=== PATIENT | male | born 1955 | race Caucasian/White ===

== ENCOUNTER 2018-04-17 07:33 | Inpatient (IN) | payer MEDICARE, MEDICAID ==
[2018-04-17] MEDS ORDERED: Fentanyl 100 MCG/2 ML VIAL ONE ×3 (07:57→13:50)
[2018-04-17] MEDS ORDERED: Sodium Chloride 0.9% 100 ML ONE (07:57)
[2018-04-17] MEDS ORDERED: cefOXitin 2 GM VIAL ONE ×2 (07:57→10:03)
[2018-04-17] MEDS ORDERED: Ketorolac Tromethamine 30 MG/ML VIAL ONE (07:57)
[2018-04-17] MEDS ORDERED: Midazolam HCl 2 mg/2 ml Vial ONE ×2 (07:57→09:30)
[2018-04-17] MEDS ORDERED: Dexamethasone 4 mg/ml Vial ONE ×2 (07:57→09:22)
[2018-04-17 08:25] LABS: #Eosinphils 0.1 thou/uL (0.0-0.7); #Lymphocytes 1.7 thou/uL (1.20-3.40); #Monocytes 0.6 thou/uL (0.11-0.59); #Neutrophils 5.1 thou/uL (1.40-6.50); %Basophils 0.6 % (0.0-1.0); %Lymphocytes 22.1 % (21.0-51.0); %Monocytes 8.1 % (0.0-10.0); %Neutrophils 67.2 % (42.0-75.0); Hemoglobin 14.6 g/dL (14.0-18.0); Mean Corpuscular HGB CONC 33.2 g/dL (32.0-36.0); Mean Corpuscular Hemoglobin 31.7 pg (27.0-31.0); Mean Corpuscular Volume 95.4 fL (78.0-98.0); Mean Platelet Volume 7.4 fL (7.4-10.4); Platelet Count 209 thou/uL (130-400); RBC Distribution Width 12.7 % (11.5-14.5); White Blood Cell (WBC) Count 7.6 thou/uL (4.8-10.8)
[2018-04-17 08:43] LABS: Anion Gap 9 mmol/L (10-20); BUN (Urea Nitrogen) 18 mg/dL (8.4-25.7); Calc. Creatinine Clearance 81 mL/min (70-130); Calcium 8.9 mg/dL (7.8-10.44); Carbon Dioxide 30 mmol/L (22-29); Chloride 110 mmol/L (98-107); Estimated GFR-MDRD 86; Glucose 87 mg/dL (70-105); Sodium 145 mmol/L (136-145)
[2018-04-17] MEDS ORDERED: Lidocaine 2% w/Epinephrine 1:200K 20 ML VIAL ONE (09:22)
[2018-04-17] MEDS ORDERED: Bupivacaine/Epinephrine 0.25% 30 ML VIAL ONE (09:22)
[2018-04-17] MEDS ORDERED: ePHEDrine/0.9% NaCl/PF SYRINGE 50 mg/10 ml ONE (13:39)
[2018-04-17] MEDS ORDERED: Ondansetron HCl/PF 4 MG/2 ML Vial ONE (13:39)
[2018-04-17] MEDS ORDERED: Dexamethasone 20 MG/5 ML VIAL ONE (13:39)
[2018-04-17] MEDS ORDERED: PROPOFOL 200 MG/20 ML VIAL ONE (13:39)
[2018-04-17] MEDS ORDERED: Glycopyrrolate 0.2 MG/ML 5 ML SYRINGE ONE (13:39)
[2018-04-17] MEDS ORDERED: Lidocaine 1% PF 5 ML VIAL ONE (13:39)
[2018-04-17] MEDS ORDERED: Ondansetron HCl/PF 4 MG/2 ML Vial IVP PRN (16:27)
[2018-04-17] MEDS ORDERED: hydrALAZINE 20 MG/ML VIAL SLOW IVP PRN (16:27)
[2018-04-17] MEDS ORDERED: Promethazine HCl 25 MG/ML VIAL IM PRN (16:27)
[2018-04-17] MEDS: Acetaminophen 1,000 MG in Premix Bag 1 BAG IVPB SCH (17:51)
[2018-04-17] MEDS: D5 1/2 NS w/20 mEq KCL 1,000 ML IV SCH (17:51)
[2018-04-17] MEDS: Ketorolac Tromethamine 30 MG/ML VIAL IVP SCH (17:52)
[2018-04-17] MEDS: Enoxaparin Sodium 40 MG/0.4 ML SYRINGE SC SCH (20:36)
[2018-04-17] MEDS: Famotidine/PF 20 mg/2ml Vial SLOW IVP SCH (20:37)
[2018-04-17] MEDS: Famotidine 20 MG TAB PO SCH (20:37)
[2018-04-18] MEDS: Acetaminophen 1,000 MG in Premix Bag 1 BAG IVPB SCH ×4 (00:06→18:29)
[2018-04-18] MEDS: cefOXitin 2 GM in Sodium Chloride 0.9% 100 ML IVPB SCH ×3 (00:06→18:29)
[2018-04-18] MEDS: Ketorolac Tromethamine 30 MG/ML VIAL IVP SCH ×4 (00:07→17:13)
[2018-04-18] MEDS: D5 1/2 NS w/20 mEq KCL 1,000 ML IV SCH ×3 (00:58→21:09)
[2018-04-18 04:59] LABS: Anion Gap 13 mmol/L (10-20); BUN (Urea Nitrogen) 15 mg/dL (8.4-25.7); Calc. Creatinine Clearance 75 mL/min (70-130); Calcium 8.1 mg/dL (7.8-10.44); Carbon Dioxide 16 mmol/L (22-29); Chloride 113 mmol/L (98-107); Estimated GFR-MDRD 79; Glucose 149 mg/dL (70-105); Potassium 4.5 mmol/L (3.5-5.1); Sodium 137 mmol/L (136-145)
[2018-04-18 05:39] LABS: Band 40 % (5-11); Hemoglobin 15.9 g/dL (14.0-18.0); Lymphocytes 16 % (21-51); MDiff Complete? YES; Mean Corpuscular HGB CONC 34.6 g/dL (32.0-36.0); Mean Corpuscular Hemoglobin 32.7 pg (27.0-31.0); Mean Corpuscular Volume 94.7 fL (78.0-98.0); Mean Platelet Volume 7.7 fL (7.4-10.4); Monocytes 28 % (0-10); Myelocyte 8 % (0-0); Neutrophil 4 % (42-75); PLT Morphology Comment Appears Adequate; Platelet Count 182 thou/uL (130-400); RBC Distribution Width 12.8 % (11.5-14.5); Reactive Lymphocytes 4 % (0-10); Red Blood Cell (RBC) Count 4.86 mill/uL (4.70-6.10); White Blood Cell (WBC) Count 3.6 thou/uL (4.8-10.8)
--- NOTE | 2018-04-18 08:20 | OP ---
DATE OF PROCEDURE: 04/17/2018 PREOPERATIVE DIAGNOSES: Intractable constipation, suspected related to functional issues associated with his profound mental retardation. POSTOPERATIVE DIAGNOSES: Intractable constipation, suspected related to functional issues associated with his profound mental retardation. OPERATION PERFORMED: Laparoscopic sigmoid colectomy with end colostomy. SURGEON: Dr. Robert Nunez ANESTHESIA: General endotracheal. INDICATIONS: The patient is a 62-year-old white male. 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 He is nonverbal. He is unable to ambulate. He has had repeated p rogressive problems with severe constipation. He is therefore taken to the operating room at [facility] for a sigmoid colectomy with end colostomy in hopes of resolving these issues. OPERATIVE PROCEDURE IN DETAIL: Informed consent was obtained. The patient was taken to the operatin g room where general endotracheal anesthesia obtained with the patient in supine position. Abdomen w as prepped with ChloraPrep and draped in sterile fashion. Local anesthetic was infiltrated and a 5 m m supraumbilical incision was created through which a Veress needle was passed in peritoneal cavity a nd pneumoperitoneum established using carbon dioxide up to a pressure of 15 mmHg. A 5 mm trocar pass ed through the same incision. Laparoscopic camera was passed this port. Under direct vision, 2 justine tional right-sided ports were placed including a 12 mm right lower quadrant port and a 5 mm right mid abdominal port. Finally, a 5 mm port was placed in the left abdomen at the preselected site for his colostomy. Attention was turned to the abdominal contents. The patient was noted to have extensive dilated silvio l. I was able to identify the rectum as it descended into the pelvis. Just proximal to this, the si gmoid colon became extraordinarily dilated. There were some abnormal adhesions between the sigmoid c olon and the right retroperitoneum. Because of the extensive dilatation, the anatomy was initially d ifficult to perceive. As I began to mobilize, the anatomy became clearer. I initially began by mobilizing the sigmoid colon from the lateral peritoneal wall. The white line o f Toldt was incised and the left colon was mobilized along this line. I then turned my attention inf eriorly as I continued to mobilize the redundant sigmoid colon was extended towards the rectum. I cl eared the adhesions on the right lateral aspect of the sigmoid colon. I eventually selected a segmen t of distal sigmoid colon, created a mesenteric window, and divided the distal sigmoid colon with 2 f ires of the Comobabi stapler. The mesentery was taken down in an ascending fashion using the LigaSure device. As I reached the distal to mid left colon, I decided that was enough mobilization. I then created a colostomy opening in the left abdomen, creating cruciate incisions in the anterior and post erior fascia and was able to withdraw the colon through this opening. Because of the diseased chroni archie distended colon there were a couple of small colon perforations that had occurred during the mo bilization. These were quickly repaired to prevent ongoing leakage. I then secured the colon to the fascia with 4 interrupted sutures of 3-0 silk. I also closed the fascia somewhat inferiorly with a single interrupted suture of #1 PDS to minimize chances of a hernia. The abdomen was explored laparoscopically. It was ensured that there was no ongoing bleeding. The a maritza was irrigated and all irrigant was aspirated. Staple line was inspected and noted to be intact. The fascial defect at the 12 mm port was closed with 0 Vicryl suture using a GraNee needle. All por ts and instruments removed under direct vision. Pneumoperitoneum was carefully evacuated. Quarter p ercent Marcaine with epinephrine was infiltrated at each port site. Skin edges approximated with 4-0 Monocryl subcuticular suture. Dermabond was placed externally. Attention was turned to the colostomy. This was matured in the usual fashion using 4 interrupted juan manuel rsion sutures of 3-0 Vicryl. The remaining colon was secured to the skin using full thickness interr upted bites of 3-0 Vicryl to obtain a good approximation. A colostomy appliance was then applied. T here were no complications. The patient tolerated the procedure well and was taken to recovery room in stable condition.
[2018-04-18] MEDS ORDERED: Polyethylene Glycol 3350 17 GM Packet PO PRN (09:00)
[2018-04-18] MEDS: Famotidine/PF 20 mg/2ml Vial SLOW IVP SCH ×2 (10:05→21:11)
[2018-04-18] MEDS: Famotidine 20 MG TAB PO SCH ×2 (10:09→21:12)
[2018-04-18] MEDS ORDERED: HYDROcodone/Acetaminophen 7.5/325 mg Tablet PO PRN ×2 (13:00)
[2018-04-18] MEDS ORDERED: Lactated Ringer's 1,000 ML IV SCH (18:00)
[2018-04-18] MEDS: Enoxaparin Sodium 40 MG/0.4 ML SYRINGE SC SCH (21:12)
[2018-04-19] MEDS: Ketorolac Tromethamine 30 MG/ML VIAL IVP SCH ×3 (00:21→15:58)
[2018-04-19] MEDS: Acetaminophen 1,000 MG in Premix Bag 1 BAG IVPB SCH ×5 (00:21→23:26)
[2018-04-19] MEDS: cefOXitin 2 GM in Sodium Chloride 0.9% 100 ML IVPB SCH ×2 (02:03→10:38)
[2018-04-19 04:49] LABS: Anion Gap 10 mmol/L (10-20); BUN (Urea Nitrogen) 15 mg/dL (8.4-25.7); Calc. Creatinine Clearance 61 mL/min (70-130); Calcium 7.8 mg/dL (7.8-10.44); Carbon Dioxide 18 mmol/L (22-29); Chloride 112 mmol/L (98-107); Estimated GFR-MDRD 62; Glucose 95 mg/dL (70-105); Sodium 135 mmol/L (136-145)
[2018-04-19] MEDS: D5 1/2 NS w/20 mEq KCL 1,000 ML IV SCH ×3 (05:45→15:58)
[2018-04-19 07:31] LABS: Band 48 % (5-11); Hemoglobin 13.5 g/dL (14.0-18.0); Lymphocytes 15 % (21-51); MDiff Complete? YES; Mean Corpuscular Hemoglobin 32.3 pg (27.0-31.0); Metamyelocyte 5 % (0-0); Monocytes 2 % (0-10); Myelocyte 2 % (0-0); Neutrophil 26 % (42-75); Nucleated RBC 1 % (0); PLT Morphology Comment Appears Decreased; Platelet Count 111 thou/uL (130-400); RBC Distribution Width 12.9 % (11.5-14.5); Reactive Lymphocytes 2 % (0-10); Red Blood Cell (RBC) Count 4.18 mill/uL (4.70-6.10); Reflex for Review?? YES; Toxic Granulation SLIGHT; Vacuoles MODERATE; White Blood Cell (WBC) Count 2.1 thou/uL (4.8-10.8)
[2018-04-19] MEDS: Dextrose 5 %-0.45 % NaCl 1,000 ML IV SCH ×3 (10:39→23:25)
[2018-04-19] MEDS: Famotidine/PF 20 mg/2ml Vial SLOW IVP SCH ×2 (10:39→22:01)
[2018-04-19] MEDS ORDERED: Piperacillin/Tazobactam 3.375 GM in Sodium Chloride 0.9% 100 ML IVPB SCH (11:00)
[2018-04-19] MEDS ORDERED: Lactated Ringer's 1,000 ML IV SCH (11:00)
--- NOTE | 2018-04-19 11:02 | CT ---
CT OF THE ABDOMEN AND PELVIS WITH IV CONTRAST AND RECTAL CONTRAST: Date: 04-19-18 Provided Clinical History: Tachycardia and dyspnea. FINDINGS: The patient was unable to tolerate oral contrast. No comparisons. Small bilateral pleural effusions and bibasilar pleural parenchymal opacity likely reflecting passive atelectasis demonstrated. The liver, spleen, pancreas, kidneys and adrenal glands demonstrate no acute finding. Foci of increas ed density involving the left kidney probably reflect renal calculi. There is no hydronephrosis. Post-operative changes of colectomy with end colostomy noted. A staple line is seen involving the reg ion of the rectosigmoid junction. There are foci of extraluminal gas present about the rectosigmoid s taple line. There is extraluminal gas present within the soft tissues surrounding the left mid abdomi nal colostomy. There is mild noncircumscribed free fluid present within the abdomen primarily on the left midabdomen anteriorly. There is no definite CT evidence for abscess. There is no evidence for janusz wel obstruction. Soft tissue density is present in the right inguinal region, presumably reflecting inguinal testicle. Changes of bilateral chronic hip dislocation demonstrated. The osseous structures demonstrate no con cerning lytic or blastic lesions. IMPRESSION: 1. Limited evaluation as the patient was unable to tolerate oral contrast material. Foci of extralumi nal gas are seen about the rectal staple line, which could be evidence for leak or post-surgical in n ature. Free intraperitoneal fluid is present without CT evidence for abscess formation. 2. Findings suggesting right inguinal testicle. 3. Bilateral pleural effusions and bibasilar parenchymal opacity may reflect atelectasis. POS: [facility]
[2018-04-19] MEDS ORDERED: Iopamidol 370 76% 100 ML VIAL ONE (11:26)
[2018-04-19] MEDS ORDERED: Ketorolac Tromethamine 30 MG/ML VIAL ONE (12:27)
[2018-04-19] MEDS ORDERED: PHENYLEPHRINE-NS 100 MCG/ML 10 ML SYRINGE ONE ×2 (12:42→13:53)
[2018-04-19] MEDS ORDERED: PROPOFOL 200 MG/20 ML VIAL ONE (12:42)
[2018-04-19] MEDS ORDERED: Norepinephrine 4 MG/4 ML VIAL ONE (12:42)
[2018-04-19] MEDS ORDERED: Lidocaine 1% PF 5 ML VIAL ONE (12:42)
[2018-04-19] MEDS ORDERED: Calcium Chloride 1 GM/10 ML Abboject SYRINGE ONE (12:42)
[2018-04-19] MEDS ORDERED: ePHEDrine/0.9% NaCl/PF SYRINGE 50 mg/10 ml ONE (12:42)
[2018-04-19] MEDS ORDERED: Succinylcholine Chloride 20 MG/ML 10 ml SYRINGE FS ONE (12:42)
[2018-04-19] MEDS ORDERED: Bupivacaine/Epinephrine 0.25% 30 ML VIAL ONE (13:04)
[2018-04-19] MEDS ORDERED: Fentanyl 100 MCG/2 ML VIAL ONE ×2 (13:19)
[2018-04-19] MEDS ORDERED: Midazolam HCl 2 mg/2 ml Vial ONE (13:19)
[2018-04-19] MEDS ORDERED: EPINEPHrine 1 MG/ML AMP ONE (13:51)
[2018-04-19] MEDS ORDERED: Sodium Chloride 0.9% 20 ML ONE (13:55)
[2018-04-19] MEDS ORDERED: Phenylephrine HCL 10 MG/ML VIAL ONE (14:01)
[2018-04-19] MEDS ORDERED: Albumin 25% 100 ML ONE (14:01)
[2018-04-19] MEDS ORDERED: Norepinephrine 8 MG/250 ML BAG IVPB PRN (15:20)
[2018-04-19] MEDS ORDERED: Sodium Chloride 0.9% 10 ML ONE (15:21)
[2018-04-19 15:49] LABS: Anion Gap 13 mmol/L (10-20); BUN (Urea Nitrogen) 14 mg/dL (8.4-25.7); Band 30 % (5-11); Calc. Creatinine Clearance 79 mL/min (70-130); Calcium 8.7 mg/dL (7.8-10.44); Carbon Dioxide 16 mmol/L (22-29); Chloride 113 mmol/L (98-107); Crenated RBC SLIGHT = 1-5 cells (100X) (None Seen); Estimated GFR-MDRD 83; Hemoglobin 11.6 g/dL (14.0-18.0); Lymphocytes 28 % (21-51); MDiff Complete? YES; Mean Corpuscular HGB CONC 32.8 g/dL (32.0-36.0); Mean Corpuscular Hemoglobin 32.2 pg (27.0-31.0); Mean Corpuscular Volume 98.2 fL (78.0-98.0); Mean Platelet Volume 7.8 fL (7.4-10.4); Metamyelocyte 4 % (0-0); Monocytes 10 % (0-10); Myelocyte 2 % (0-0); Neutrophil 24 % (42-75); PLT Morphology Comment Appears Decreased; Platelet Count 76 thou/uL (130-400); Potassium 4.3 mmol/L (3.5-5.1); RBC Distribution Width 13.2 % (11.5-14.5); Reactive Lymphocytes 2 % (0-10); Red Blood Cell (RBC) Count 3.61 mill/uL (4.70-6.10); Sodium 138 mmol/L (136-145); White Blood Cell (WBC) Count 1.7 thou/uL (4.8-10.8)
[2018-04-19 15:53] LABS: Glucose 49 mg/dL (70-105)
[2018-04-19] MEDS: Famotidine 20 MG TAB PO SCH (15:58)
--- NOTE | 2018-04-19 16:00 | RAD ---
CHEST ONE VIEW 04/19/18 HISTORY: Intubated. Chest pain. FINDINGS: The cardiac silhouette is magnified and partially obscured by patchy bibasilar infiltrates, right wor se than left. Pulmonary vasculature is engorged and accentuated by shallow inspiration. The patient i s rotated rightward, accentuating right sided mediastinum. Tip of an endotracheal catheter lies at th e level of the rosana. Nasogastric tube is coiled over the stomach. Tip of a left subclavian central venous catheter overlies the cavoatrial junction. No evidence of pneumothorax on this portable supine exam. IMPRESSION: 1. Pulmonary edema. 2. Endotracheal catheter tip at the level of the rosana. Please consider pulling the catheter ba ck approximately 3 cm for better positioning. 3. Other lines and tubes as detailed above. POS: [facility]
[2018-04-19] MEDS ORDERED: Dextrose 50% Abboject 50 ML SYRINGE ONE (16:16)
[2018-04-19 16:28] LABS: Actual Bicarbonate (HCO3a) 16.2 mEq/L (22-28); Base Excess (BEa) -9.6 mEq/L (-2.0 to +3.0); CO2 Tension 35.3 mmHg (35.0-45.0); Carboxyhemoglobin (COHb) 1.6 gm% (0.0-3.0); Hemoglobin (Hb) 13.2 g/dL (14.0-18.0); O2 Tension (PaO2) 77.3 mmHg (> 80.0); pH, Arterial 7.28 (7.35-7.45)
[2018-04-19 16:30] LABS: ALV-art Gradient 161.775 (0-20); Calcium, Ionized 1.3 mmol/L (1.12-1.30); Potassium - ABG Lab 4.2 mmol/L (3.70-5.30); Puncture Site LR
[2018-04-19] MEDS: Piperacillin/Tazobactam 3.375 GM in Sodium Chloride 0.9% 100 ML IVPB SCH ×2 (18:01→23:51)
[2018-04-19] MEDS: Enoxaparin Sodium 40 MG/0.4 ML SYRINGE SC SCH (22:00)
--- NOTE | 2018-04-20 00:35 | OP ---
DATE OF PROCEDURE: 04/19/2018 PREOPERATIVE DIAGNOSES: Abdominal pain, possible intra-abdominal sepsis. POSTOPERATIVE DIAGNOSIS: Early peritonitis without definite perforation. OPERATION PERFORMED: Left subclavian central line placement, laparoscopic abdominal washout and drai n placement. SURGEON: Robert Nunez M.D. ANESTHESIA: General endotracheal. INDICATIONS: Patient is a 62-year-old white male. He had a history of chronic constipation for whic h I had recommended a colectomy with colostomy for creation. This was performed on 04/17 (2 days ago ). Although the surgery was difficult secondary to extensive chronic bowel distention, the operation was performed safely without complication. The patient, secondary to his limited mental and physica l abilities, is unable to participate with standard postoperative activities, nor is he able to commu nicate regarding any perceived pain. He had become tachycardic and hypotensive in spite of increased IV fluids. He also had a significant bandemia. CT scan obtained today was without definite evidenc e of perforation or abscess formation. I recommended laparoscopic evaluation. DESCRIPTION OF OPERATION: Informed consent was obtained from his guardian. He was taken to the oper ating room where general endotracheal anesthesia was obtained with the patient in supine position. A ttention was turned first to central line placement. Left chest was prepped with ChloraPrep and drap ed in sterile fashion. Local anesthetic was infiltrated and a large gauge needle was advanced under the clavicle in the subclavian vein. Guidewire was passed through the needle, skin was incised, trac t was dilated, and 7 Gambian triple-lumen catheter was advanced over the wire uneventfully. Each of t he 3 lumens aspirated blood freely and was flushed with heparinized saline. Catheter was secured at skin exit site with 3-0 silk suture. Sterile occlusive dressing and Biopatch were placed. Attention was turned to the abdomen. His colostomy appliance was removed and the colostomy was cover ed with an occlusive dressing. The abdomen was prepped with ChloraPrep and draped in sterile fashion . The upper 5 mm port site on the right abdomen was reopened. Veress needle was passed through this and pneumoperitoneum established using carbon dioxide up to a pressure of 15 mmHg. A 5-mm trocar po rt was passed through the same incision. Under direct vision, I placed 5-mm ports in to the other 2 port sites as well. There were some inflammatory adhesions intra-abdominal. There was some evidence of some old thin blo od, but no significant clot. All the fluid that I could see was aspirated and submitted for culture. On the left hand side of the abdomen near the colostomy, there was inflammatory debris on both the abdominal wall and on the underlying structures typical of an abscess cavity, but there really was no t abscess like purulent material within this. This was all aspirated. There was no bowel on the souleymane e of the abdomen. The patient's cecum was quite distended and this made it difficult to examine down into the pelvis. I could not definitely examine the staple line from the transected rectosigmoid co bonnie. The colon and small bowel was all far too distended, to really be able to trace the bowel throu ghout. At no time did I see any bilious material, some inflammatory exudate. I then extensively irrigated t he abdominal cavity with 3 liters of saline. All of this was aspirated. A 19-Gambian fluted drain wa s passed into the abdominal cavity and brought out through the inferior port site on the right. It w as passed down into the pelvis and over into the left abdomen. It was secured at the exit site with 3-0 nylon suture. Of note, there was never any air leak at the colostomy site. This appeared to have sealed completely . All ports and instruments were removed under direct vision. Pneumoperitoneum was carefully evacuated . Additional local anesthetic was infiltrated in each port site. Skin edge was approximated with 4- 0 Monocryl subcuticular suture. Dermabond was placed externally over the 2 port sites were closed. The occlusive dressing was applied over the drain exit site. There were no complications. Patient t olerated the procedure well. It was decided to take him to the intensive care unit on a ventilator t o ensure appropriate stabilization.
--- NOTE | 2018-04-20 02:13 | CON ---
DATE OF CONSULTATION: 04/19/2018 HISTORY OF PRESENT ILLNESS: This a 62[facility] who was transferred here for constipation, unresponsive to usual treatments. He required a colostomy. As per Dr. Nunez, the surgeon, this was performed on 04/17/2018. Over the course of several days, he has had ongoing issues with tachycardia, fever. Dr. Nunez felt he was concerned about postop infection and a repeat lab was done. He found some evidence of perito nitis, but no leak, no anastomotic dehiscence. He is presently intubated on the vent. His chest x-ray shows bilateral pulmonary infiltrates, right greater than left. MEDICATIONS: Presently includes Levophed, Zosyn. His medicine from home includes simethicone, Crest or, omeprazole 20, vitamin D. ALLERGIES: SULFA. PAST MEDICAL HISTORY: Mental retardation, severe contraction, body habitus, markedly restricte d; upper extremity, contracted; lower extremity, contracted; kyphoscoliosis, extensive. PAST SURGICAL HISTORY: Otherwise included appears to be a [employer] shunt, colonoscopy. REVIEW OF SYSTEMS: Unobtainable. PHYSICAL EXAMINATION: VITAL SIGNS: Pulse 84, blood pressure 93/82 on Levophed. Sats 90%, respirations 20. GENERAL: He is obviously unable to communicate. Body habitus is noted. CHEST: Extensive rhonchi and crackles. CARDIAC: Normal S1-S2. No gallops. ABDOMEN: Distended, soft. LABORATORY DATA: Shows a white count of 1.7, H&H are 11 and 35, platelet count of 76. He has got 24 neutrophils, 30 bands. Electrolytes are normal. Glucose 49. Calcium is 8.7. IMPRESSION AND PLAN: 1. Status post lap for nonfunctional bowel. 2. Peritonitis. 3. Severe mental retardation. 4. Thrombocytopenia. Portion is probably septic. I started him on Zosyn, Levophed, cortisol level being ordered. He is n ot weanable at this time. Remains hypotensive. Consideration for adding meropenem will be made. Depending on the cortisol level, may consider adding steroids. 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 Nunez has spoken to them at length. This is a 45-minute critical care time.
[2018-04-20 05:54] LABS: Anion Gap 11 mmol/L (10-20); BUN (Urea Nitrogen) 12 mg/dL (8.4-25.7); Calc. Creatinine Clearance 88 mL/min (70-130); Calcium 8.2 mg/dL (7.8-10.44); Carbon Dioxide 17 mmol/L (22-29); Chloride 112 mmol/L (98-107); Estimated GFR-MDRD Greater than 90; Glucose 97 mg/dL (70-105); Magnesium 1.4 mg/dL (1.6-2.6); Potassium 3.5 mmol/L (3.5-5.1); Sodium 136 mmol/L (136-145)
[2018-04-20 05:57] LABS: Phosphorus Less than 1.0 mg/dL (2.3-4.7)
[2018-04-20 06:02] LABS: Band 29 % (5-11); Eosinophils 3 % (0-10); Hemoglobin 11.4 g/dL (14.0-18.0); Lymphocytes 19 % (21-51); MDiff Complete? YES; Mean Corpuscular HGB CONC 33.4 g/dL (32.0-36.0); Mean Corpuscular Hemoglobin 32.5 pg (27.0-31.0); Mean Corpuscular Volume 97.2 fL (78.0-98.0); Mean Platelet Volume 7.9 fL (7.4-10.4); Metamyelocyte 1 % (0-0); Monocytes 11 % (0-10); Neutrophil 37 % (42-75); PLT Morphology Comment Appears Decreased; Platelet Count 64 thou/uL (130-400); RBC Distribution Width 13.2 % (11.5-14.5); White Blood Cell (WBC) Count 2.4 thou/uL (4.8-10.8)
[2018-04-20] MEDS: Piperacillin/Tazobactam 3.375 GM in Sodium Chloride 0.9% 100 ML IVPB SCH ×3 (06:03→17:15)
[2018-04-20] MEDS: Acetaminophen 1,000 MG in Premix Bag 1 BAG IVPB SCH ×3 (06:03→17:14)
[2018-04-20] MEDS: Dextrose 5 %-0.45 % NaCl 1,000 ML IV SCH ×3 (06:38→21:43)
[2018-04-20 07:41] LABS: Actual Bicarbonate (HCO3a) 16.7 mEq/L (22-28); O2 Tension (PaO2) 118.7 mmHg (> 80.0); pH, Arterial 7.41 (7.35-7.45)
[2018-04-20 07:42] LABS: Base Excess (BEa) -6.5 mEq/L (-2.0 to +3.0); Calcium, Ionized 1.2 mmol/L (1.12-1.30); Carboxyhemoglobin (COHb) 1.2 gm% (0.0-3.0); Hemoglobin (Hb) 11.9 g/dL (14.0-18.0); Potassium - ABG Lab 3.5 mmol/L (3.70-5.30); Puncture Site RRA
[2018-04-20] MEDS: Famotidine/PF 20 mg/2ml Vial SLOW IVP SCH ×2 (08:15→21:43)
--- NOTE | 2018-04-20 08:37 | PRG ---
DATE OF SERVICE: 04/20/2018 SUBJECTIVE: Intubate in the vent, no sedation. Appears to be in no distress. OBJECTIVE: VITAL SIGNS: To my surprise, blood pressure is 107/60, sats are 99%-100%, respiration rate 18. GENERAL: Eyes are open. Severely deformed and contracted gentleman. CHEST: Chest reveals decreased breath sounds, anterior rhonchi. CARDIAC: Normal S1, S2. No gallops. ABDOMEN: Soft without any masses. LABORATORY DATA: White count 2000. H&H is 11 and 33, platelet count is 64,000. PO2 is 118, pCO2 __ ___. X-RAY FINDINGS: X-ray shows infiltrates, it is unclear which is chronic and which is new. IMPRESSION: Respiratory failure, status post lap peritonitis. PLAN: Continue Zosyn, continue neb treatments and supportive care. Continue Levophed. He is to start TPN as per Surgery today. 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 His cortisol level was 13 whil e he was on Levophed. One-half hour critical care time.
--- NOTE | 2018-04-20 09:48 | RAD ---
CHEST 1 VIEW: Date: 04/20/18 HISTORY: Central line placement. COMPARISON: Radiograph prior day. FINDINGS: Exam is severely limited due to rightward rotation of the patient. Endotracheal tube tip appears to b e at the level of the clavicles. Central venous catheter tip is relatively unchanged, unclear exactly where it is. Enteric tube tip gastric fundus. IMPRESSION: Severely limited exam. POS: [facility]
[2018-04-20] MEDS: Hydrocortisone Sod Succ/PF 100 mg/2 ml Vial IVP SCH ×2 (13:05→17:22)
[2018-04-20] MEDS ORDERED: Amiodarone HCl 150 MG, Admixture Fee 1 EACH in Dextrose 5% in Water 100 ML IVPB SCH (14:30)
[2018-04-20] MEDS: Amiodarone HCl 450 MG, Admixture Fee 1 EACH in Dextrose 5% in Water 250 ML IVPB SCH (14:42)
[2018-04-20] MEDS ORDERED: Digoxin 0.5 MG/2 ML AMP ONE (15:11)
--- NOTE | 2018-04-20 15:31 | PRG ---
DATE OF SERVICE: 04/20/2018 HISTORY OF PRESENT ILLNESS: Mr. Melgar is in the intensive care unit on a ventilator currently. He is postoperative day #3 from a laparoscopic sigmoid colectomy with end colostomy. He is postoperati ve day #1 from a laparoscopic washout and placement of drain. Yesterday, I also placed a central mary e for appropriate IV access. I left him intubated to assist with postoperative stabilization. He is unable to take deep breaths and coughing and was developing significant pulmonary compromise as a re sult of this. He was on Levophed immediately after the operation, but has been weaned off of that today. He appear s to be comfortable on the ventilator in the Intensive Care Unit. He receives intermittent sedation and pain medication. PHYSICAL EXAMINATION: VITAL SIGNS: He is afebrile with temperature of 99.3. His heart rate this morning was about 105-110 . This afternoon he developed tachycardia up to as high as 200. His urine output overnight was 1210 . His drain was 660 mL overnight since the operation as well. LUNGS: Have coarse breath sounds. ABDOMEN: Incisions are nicely healed. Left-sided ostomy is viable, but with minimal out from the ba g. There is no bowel sounds. He has diffuse tenderness. Drain is draining a light colored serosang uineous fluid. There is no evidence of any purulence. There is no evidence of any bile staining. IMAGING DATA: EKG revealed atrial fibrillation with rapid ventricular response. Amiodarone bolus an d drip has been ordered and his heart rate is now down to 150 and appears to be decreasing appropriat danielle. He has been managed for this as well as his ventilator by Critical Care Medicine Service. LABORATORY STUDIES: His CBC reveals a white blood cell count is trending back up from 1.7 yesterday to 2.4 today. His platelet count; however, has dropped down from 76-64. Hemoglobin is stable at 11. 6. His chemistry profile reveals that his electrolytes are essentially normal. He has mildly low ca rbon dioxide levels of 17. BUN is stable at 0.83. His phosphorus is very low at 1.0 and his magnesi um is low at 1.4. Cortisol this morning was normal. His chest x-ray from this morning reveals signi ficant rotation of the patient. It is hard to evaluate the lungs, but it appears that there may be s ome pulmonary congestion. ASSESSMENT AND PLAN: The patient who is stable following end colostomy, as well as washout for perit onitis. The initial cultures do reveal gram negative rods in the peritoneal fluid. The patient is o n Zosyn in treatment of this. He will need ongoing IV antibiotics and ventilator support. I will be gin TPN for nutritional support. I do anticipate significant changes over the weekend. His atrial f ibrillation will hopefully be appropriately controlled with medication that he is receiving currently .
[2018-04-20] MEDS ORDERED: Lactated Ringer's 500 ML IV SCH (16:15)
[2018-04-20 18:17] LABS: INR-International Normal Ratio 1.3; Prothrombin Time 16.1 SEC (12.0-14.7)
[2018-04-20 18:39] LABS: Cholesterol 39 mg/dl (< 200 Desired); HDL Cholesterol Less than 8 mg/dL (>60 Neg Risk); Triglycerides 42 mg/dL (Less than 150)
[2018-04-20] MEDS: Sodium Acetate 2 mEq/ml 40 MEQ, Sodium Chloride 30 MEQ, Potassium Chloride 20 MEQ, Pota... IV SCH (22:53)
[2018-04-21] MEDS: Hydrocortisone Sod Succ/PF 100 mg/2 ml Vial IVP SCH ×5 (00:35→23:54)
[2018-04-21] MEDS: Piperacillin/Tazobactam 3.375 GM in Sodium Chloride 0.9% 100 ML IVPB SCH ×5 (00:36→23:55)
[2018-04-21] MEDS: Acetaminophen 1,000 MG in Premix Bag 1 BAG IVPB SCH ×4 (00:36→17:17)
--- NOTE | 2018-04-21 02:42 | CON ---
DATE OF CONSULTATION: 04/20/2018 HISTORY: James Melgar is a 62-year-old white male, resident at [facility] with profound mental retardation and multiple extremity contractures. He was transferred for evaluation of severe constipation. Ultimately, he underwent laparoscopic sigmoid colectomy with end colostomy. The day after surgery, he was returned back to the operating room for early peritonitis and underwent laparoscopic washout and drain placement. He has remained on the ventilator throughout his hospital course. This morning, he went into atrial fibrillation with fast ventricular response at 179 per minute. He was placed on amiodarone bolus and drip and he has since converted back to sinus rhythm. The patient is intubated and unable to give any history. PAST MEDICAL HISTORY: Currently profound mental retardation. MEDICATIONS: Include calcium citrate, omeprazole 20 daily, Crestor at bedtime, simethicone and several laxatives. ALLERGIES: BACTRIM. SOCIAL HISTORY: Unobtainable. FAMILY HISTORY: Unobtainable. REVIEW OF SYSTEMS: Unobtainable. PHYSICAL EXAMINATION: VITAL SIGNS: 94/58, pulse of 73, sinus rhythm at the present time. HEENT: PERRL. CHEST: Clear. CARDIAC: S1 and S2 are normal, without any S3, S4 or murmurs. ABDOMEN: Quiet. EXTREMITIES: Revealed no edema. Areas with severe contractures of his legs and very severe contracture of the right wrist. LABORATORY DATA: EKG revealed atrial fibrillation with fast ventricular response, 179 per minute with low voltage QRS. I do not see another previous EKG on the chart. Hemoglobin 11.4, hematocrit 34.1, white count 2400, platelets 64,000, INR 1.3. The pH 7.41, pCO2 27.0, pO2 118.7. Sodium 136, potassium 3.5, chloride 112, carbon dioxide 17, BUN 12, creatinine 0.83. Phosphorus is less than 1.0. Magnesium is low at 1.4. Cholesterol 39, triglycerides 42, HDL less than 8. IMPRESSION: 1. Profound mental retardation. 2. Severe constipation requiring sigmoid colectomy and diverting colostomy. 3. History of hypercholesterolemia. 4. Atrial fibrillation, which is now converted to sinus rhythm. PLAN: The patient will be maintained on intravenous amiodarone at the present time. Echocardiogram will be performed to reassess left ventricular function. I will follow the patient with you. Also, his phosphorus and magnesium will be replaced. JANINA
[2018-04-21] MEDS: Dextrose 5 %-0.45 % NaCl 1,000 ML IV SCH ×2 (03:00→21:30)
[2018-04-21 05:29] LABS: ALT (SGPT) 34 U/L (8-55); AST (SGOT) 49 U/L (5-34); Albumin 2.1 g/dL (3.5-5.0); Alkaline Phosphatase 71 U/L (40-150); Anion Gap 12 mmol/L (10-20); BUN (Urea Nitrogen) 13 mg/dL (8.4-25.7); Bilirubin, Total 0.8 mg/dL (0.2-1.2); Calc. Creatinine Clearance 89 mL/min (70-130); Calcium 8.1 mg/dL (7.8-10.44); Carbon Dioxide 16 mmol/L (22-29); Chloride 114 mmol/L (98-107); Estimated GFR-MDRD Greater than 90; Globulin 2.2 g/dL (2.4-3.5); Glucose 170 mg/dL (70-105); Magnesium 1.6 mg/dL (1.6-2.6); Phosphorus 1.8 mg/dL (2.3-4.7); Potassium 3.5 mmol/L (3.5-5.1); Protein, Total 4.3 g/dL (6.0-8.3); Sodium 138 mmol/L (136-145)
[2018-04-21 06:29] LABS: Band 36 % (5-11); Hemoglobin 11.4 g/dL (14.0-18.0); Lymphocytes 8 % (21-51); MDiff Complete? YES; Mean Corpuscular HGB CONC 33.5 g/dL (32.0-36.0); Mean Corpuscular Hemoglobin 32.3 pg (27.0-31.0); Mean Corpuscular Volume 96.2 fL (78.0-98.0); Mean Platelet Volume 8.2 fL (7.4-10.4); Metamyelocyte 2 % (0-0); Monocytes 6 % (0-10); Neutrophil 47 % (42-75); PLT Morphology Comment Appears Decreased; Platelet Count 57 thou/uL (130-400); RBC Distribution Width 13.5 % (11.5-14.5); Reactive Lymphocytes 1 % (0-10); Red Blood Cell (RBC) Count 3.53 mill/uL (4.70-6.10); Toxic Granulation SLIGHT; White Blood Cell (WBC) Count 5.6 thou/uL (4.8-10.8)
[2018-04-21] MEDS ORDERED: SODIUM CHLORIDE IVPB SCH (07:00)
[2018-04-21] MEDS ORDERED: POTASSIUM PHOSPHATE IVPB SCH (07:00)
[2018-04-21] MEDS ORDERED: ADMIXTURE FEE IVPB SCH (07:00)
[2018-04-21 07:01] LABS: Actual Bicarbonate (HCO3a) 18.9 mEq/L (22-28); Base Excess (BEa) -5.4 mEq/L (-2.0 to +3.0); O2 Tension (PaO2) 90.8 mmHg (> 80.0); pH, Arterial 7.39 (7.35-7.45)
[2018-04-21 07:02] LABS: Carboxyhemoglobin (COHb) 0.3 gm% (0.0-3.0); Hemoglobin (Hb) 8.9 g/dL (14.0-18.0)
[2018-04-21 07:24] LABS: Calcium, Ionized 1.1 mmol/L (1.12-1.30); Potassium - ABG Lab 3.5 mmol/L (3.70-5.30); Puncture Site LRA
[2018-04-21] MEDS: Famotidine/PF 20 mg/2ml Vial SLOW IVP SCH ×2 (07:24→20:24)
--- NOTE | 2018-04-21 09:00 | RAD ---
CHEST 1 VIEW: Date: 04/21/18 HISTORY: Ventilated patient, central line. COMPARISON: Chest radiograph prior day. FINDINGS: Patient intubated with endotracheal tube tip in good position. Enteric tube tip below diaphragm, alth ough out of field of view. Patient is rotated to the right. Lungs are hypoinflated with vascular sac and [place] ding. IMPRESSION: No significant change. POS: [facility]
--- NOTE | 2018-04-21 16:10 | PRG ---
DATE OF SERVICE: 04/21/2018 SUBJECTIVE: Mr. Melgar yesterday went into rapid atrial fibrillation and was started on the amiodarone and given one dose of digoxin. He is back in sinus rhythm now. PHYSICAL EXAMINATION: VITAL SIGNS: His heart rate is in the 50s, blood pressure is 106/61 this afternoon, respiratory rate 14, oximetry is 100%. Intake and output is positive 1839. LUNGS: Clear anteriorly. HEART: Regular rhythm. ABDOMEN: Soft and nontender. EXTREMITIES: Remarkable for contractures. His ostomy tissue has good color. IMAGING DATA: Chest radiograph is unchanged. IMPRESSION: 1. Respiratory failure after colostomy for chronic severe constipation. 2. Rapid atrial fibrillation, back in sinus rhythm. We will defer to Cardiology for a decision to continue or discontinue the amiodarone. Remains mechanically ventilated. His deconditioning is the big factor in weaning from mechanical ventilation combined with abdominal distention and his bedridden state. His pH today is 7.39, pCO2 32, pO2 of 90. He appears to be stable. Critical care time is 35 minutes MTDD
[2018-04-21] MEDS: Amiodarone HCl 450 MG, Admixture Fee 1 EACH in Dextrose 5% in Water 250 ML IVPB SCH (16:18)
[2018-04-21] MEDS ORDERED: Dextrose 50% Abboject 50 ML SYRINGE SLOW IVP PRN (19:08)
[2018-04-21] MEDS ORDERED: Dextrose 5% in Water 1,000 ML IV PRN (19:08)
[2018-04-21] MEDS ORDERED: Morphine 4 MG/ML VIAL SLOW IVP PRN (19:11)
--- NOTE | 2018-04-21 21:49 | PRG ---
DATE OF SERVICE: 04/21/2018 SUBJECTIVE: James Melgar is doing well today. He is tolerating his TPN. He is on the ventilato r and appears comfortable. OBJECTIVE: VITAL SIGNS: Heart rate 58, respiratory rate 17, blood pressure 91/53. DRAINS: ALL drain with yellow serous, 155 mL for 24 hours. Gastric drainage 250 mL for 24 hours. Fo constantino 2140 for 24 hours. LUNGS: Clear to auscultation. CARDIAC: Regular rate and rhythm without murmur or gallop. ABDOMEN: Soft, quiet. Colostomy healthy. He had some colostomy output. EXTREMITIES: Contracted. LABORATORY DATA: This morning, his white count is 5.6, hemoglobin 11.4. Basic metabolic profile is unremarkable. Culture results from the peritoneal fluid reveals Enterobacter, Pseudomonas, and Enter ococcus. ASSESSMENT AND PLAN: 1. Peritonitis, status post laparoscopy, washout drainage. Continue TPN, G-tube to gravity. 2. Respiratory failure, ventilator management per Pulmonary.
[2018-04-21] MEDS: Sodium Acetate 2 mEq/ml 40 MEQ, Sodium Chloride 30 MEQ, Potassium Chloride 20 MEQ, Pota... IV SCH (22:20)
[2018-04-22] MEDS: Insulin Regular 300 UNITS/3 ML VIAL SC PRN ×3 (00:23→18:18)
[2018-04-22] MEDS: Dextrose 5 %-0.45 % NaCl 1,000 ML IV SCH ×3 (03:15→20:24)
[2018-04-22] MEDS: Hydrocortisone Sod Succ/PF 100 mg/2 ml Vial IVP SCH ×4 (06:18→23:57)
[2018-04-22] MEDS: Piperacillin/Tazobactam 3.375 GM in Sodium Chloride 0.9% 100 ML IVPB SCH ×3 (06:19→18:15)
[2018-04-22 06:26] LABS: ALT (SGPT) 35 U/L (8-55); AST (SGOT) 40 U/L (5-34); Albumin 2.1 g/dL (3.5-5.0); Alkaline Phosphatase 109 U/L (40-150); Anion Gap 9 mmol/L (10-20); BUN (Urea Nitrogen) 21 mg/dL (8.4-25.7); Bilirubin, Total 0.8 mg/dL (0.2-1.2); Calc. Creatinine Clearance 87 mL/min (70-130); Calcium 8.2 mg/dL (7.8-10.44); Carbon Dioxide 20 mmol/L (22-29); Chloride 113 mmol/L (98-107); Estimated GFR-MDRD Greater than 90; Globulin 2.3 g/dL (2.4-3.5); Glucose 167 mg/dL (70-105); Magnesium 1.8 mg/dL (1.6-2.6); Potassium 3.9 mmol/L (3.5-5.1); Protein, Total 4.4 g/dL (6.0-8.3); Sodium 138 mmol/L (136-145)
[2018-04-22 06:30] LABS: Phosphorus 1.9 mg/dL (2.3-4.7)
[2018-04-22 06:34] LABS: Band 23 % (5-11); Dohle Bodies SLIGHT; Hemoglobin 11.1 g/dL (14.0-18.0); Lymphocytes 14 % (21-51); MDiff Complete? YES; Mean Corpuscular HGB CONC 33.3 g/dL (32.0-36.0); Mean Corpuscular Hemoglobin 32.2 pg (27.0-31.0); Mean Corpuscular Volume 96.8 fL (78.0-98.0); Mean Platelet Volume 9.1 fL (7.4-10.4); Monocytes 6 % (0-10); Neutrophil 57 % (42-75); Nucleated RBC 4 % (0); PLT Morphology Comment Appears Decreased; Platelet Count 64 thou/uL (130-400); RBC Distribution Width 13.9 % (11.5-14.5); Red Blood Cell (RBC) Count 3.45 mill/uL (4.70-6.10); White Blood Cell (WBC) Count 9.4 thou/uL (4.8-10.8)
[2018-04-22 07:18] LABS: Actual Bicarbonate (HCO3a) 20.7 mEq/L (22-28); Base Excess (BEa) -3.1 mEq/L (-2.0 to +3.0); CO2 Tension 32.8 mmHg (35.0-45.0); Calcium, Ionized 1.2 mmol/L (1.12-1.30); Carboxyhemoglobin (COHb) 0.3 gm% (0.0-3.0); Hemoglobin (Hb) 10.6 g/dL (14.0-18.0); O2 Tension (PaO2) 101.6 mmHg (> 80.0); Potassium - ABG Lab 3.8 mmol/L (3.70-5.30); Puncture Site RRA; pH, Arterial 7.42 (7.35-7.45)
[2018-04-22] MEDS: Famotidine/PF 20 mg/2ml Vial SLOW IVP SCH ×2 (08:36→20:24)
[2018-04-22] MEDS: Amiodarone HCl 450 MG, Admixture Fee 1 EACH in Dextrose 5% in Water 250 ML IVPB SCH (09:45)
--- NOTE | 2018-04-22 11:23 | RAD ---
CHEST 1 VIEW: Date: 04/22/18 HISTORY: Ventilated patient. Central line placement. COMPARISON: Chest radiograph from prior day. FINDINGS: Patient intubated with endotracheal tube tip at the level of the clavicles. Exam is limited due to ri ghtward patient rotation. Central venous catheter tip not well seen due to overlying leads at the inf erior SVC. IMPRESSION: Severely limited and rotated exam. Endotracheal tube and enteric tube are relatively similar. POS: [facility]
[2018-04-22] MEDS ORDERED: Fleets Phospha Soda 45 ml Bottle PO PRN (17:10)
--- NOTE | 2018-04-22 17:25 | PRG ---
DATE OF SERVICE: 04/22/2018 SUBJECTIVE: James Melgar did well overnight. He is in no distress. His pressure support was turned off and he still pulled 700 mL with no pressure support of PEEP. OBJECTIVE: VITAL SIGNS: Blood pressure 114/59, heart rate 52, respiratory rates in the teens. LUNGS: Clear. HEART: Regular rhythm. ABDOMEN: Soft. EXTREMITIES: Without any change. His contractures persist. LABORATORY DATA: White count 8.5, hemoglobin 11.9, platelets 138. Sodium 130, potassium 3.5, chloride 111, bicarbonate 20, BUN 13, creatinine 0.72. IMPRESSION: 1. Mechanical ventilation after colostomy for chronic constipation 2. Severe learning disability residing in the [facility]. We will continue with mechanical ventilation. He may be a candidate for extubation in the morning. I have deferred extubate him when we have a full complement of Staph available. Based on his bedside exam with pressure support and PEEP turned off, he certainly appears to be strong enough to wean fro m mechanical ventilation. His chest radiograph is of poor quality just because of his body habitus. Blood gas shows a pH 7.42, CO2 32, pO2 of 101 on 30%, so I really think he will probably do well. We will leave him on 5 of pressure support, 5 of PEEP overnight and see how he looks in the morning. T his basically will be a prolonged spontaneous breathing trial. Critical care time was 30 minutes.
[2018-04-22] MEDS ORDERED: Sodium Phosphate 10 MMOL in Sodium Chloride 0.9% 250 ML 250 ML IVPB SCH (17:45)
--- NOTE | 2018-04-22 18:32 | PRG ---
DATE OF SERVICE: 04/22/2018 SUBJECTIVE: James Melgar is doing well today. He is on the ventilator, but on CPAP probably declan l be extubated tomorrow; 77 heart rate, 106/76. ALL drain is draining 75 mL for 24 hours. The draina ge is cloudy. Cultures from that drain and peritoneal fluid reveal Enterobacter Pseudomonas and Ente rococcus. No acid fast bacilli seen. The patient is on Zosyn. Colostomy is healthy. PHYSICAL EXAMINATION: ABDOMEN: Soft. There is flatus in the colostomy bag, but minimal stool. LUNGS: Clear to auscultation. CARDIAC: Regular rate and rhythm without murmur or gallop. ABDOMEN: Soft. LABORATORY DATA: White count 5.6, hemoglobin 11.4. Comprehensive metabolic profile is unremarkable. Phosphorus is low at 1.9 and magnesium 1.8. ASSESSMENT AND PLAN: 1. On TPN, ileus resolving, flatus in his colostomy bag. Abdomen seems soft and nontender. Bowel f unction seems to be improving. Continue using his antibiotics and TPN for now. 2. Low phosphorus, replace. 3. Respiratory failure. Hopefully, wean from the vent tomorrow.
[2018-04-22] MEDS: Sodium Acetate 2 mEq/ml 40 MEQ, Sodium Chloride 30 MEQ, Potassium Chloride 20 MEQ, Pota... IV SCH (23:05)
--- NOTE | 2018-04-22 23:19 | EKG ---
Test Reason : Blood Pressure : / mmHG Vent. Rate : 179 BPM Atrial Rate : 153 BPM P-R Int : 000 ms QRS Dur : 078 ms QT Int : 228 ms P-R-T Axes : 000 -03 -72 degrees QTc Int : 393 ms Atrial fibrillation with rapid ventricular response Low voltage QRS Cannot rule out Inferior infarct , age undetermined Abnormal ECG No previous ECGs available Confirmed by Dawit HARDIN ([id number]) on 04/22/2018 11:18:46 PM Referred By: GUICHO Confirmed By:Dawit HARDIN
[2018-04-23] MEDS: Piperacillin/Tazobactam 3.375 GM in Sodium Chloride 0.9% 100 ML IVPB SCH ×4 (00:01→17:14)
[2018-04-23] MEDS: Amiodarone HCl 450 MG, Admixture Fee 1 EACH in Dextrose 5% in Water 250 ML IVPB SCH ×2 (00:02→14:45)
[2018-04-23] MEDS: Insulin Regular 300 UNITS/3 ML VIAL SC PRN ×4 (00:02→17:32)
[2018-04-23] MEDS: Dextrose 5 %-0.45 % NaCl 1,000 ML IV SCH ×3 (00:03→12:54)
[2018-04-23 05:19] LABS: ALT (SGPT) 38 U/L (8-55); AST (SGOT) 35 U/L (5-34); Alkaline Phosphatase 127 U/L (40-150); Anion Gap 11 mmol/L (10-20); BUN (Urea Nitrogen) 25 mg/dL (8.4-25.7); Bilirubin, Total 0.6 mg/dL (0.2-1.2); Calc. Creatinine Clearance 97 mL/min (70-130); Calcium 7.9 mg/dL (7.8-10.44); Carbon Dioxide 20 mmol/L (22-29); Chloride 112 mmol/L (98-107); Estimated GFR-MDRD Greater than 90; Globulin 2.3 g/dL (2.4-3.5); Glucose 220 mg/dL (70-105); Magnesium 1.8 mg/dL (1.6-2.6); Phosphorus 2.3 mg/dL (2.3-4.7); Potassium 3.9 mmol/L (3.5-5.1); Protein, Total 4.3 g/dL (6.0-8.3); Sodium 139 mmol/L (136-145)
[2018-04-23 05:22] LABS: Band 25 % (5-11); Hemoglobin 10.2 g/dL (14.0-18.0); Lymphocytes 13 % (21-51); MDiff Complete? YES; Mean Corpuscular HGB CONC 33.8 g/dL (32.0-36.0); Mean Corpuscular Hemoglobin 32.3 pg (27.0-31.0); Mean Corpuscular Volume 95.7 fL (78.0-98.0); Mean Platelet Volume 8.9 fL (7.4-10.4); Neutrophil 62 % (42-75); PLT Morphology Comment Appears Decreased; Platelet Count 74 thou/uL (130-400); RBC Distribution Width 13.8 % (11.5-14.5); Red Blood Cell (RBC) Count 3.14 mill/uL (4.70-6.10); White Blood Cell (WBC) Count 10.6 thou/uL (4.8-10.8)
[2018-04-23] MEDS: Hydrocortisone Sod Succ/PF 100 mg/2 ml Vial IVP SCH ×3 (06:08→21:40)
[2018-04-23 06:55] LABS: Actual Bicarbonate (HCO3a) 19.2 mEq/L (22-28); Base Excess (BEa) -3.2 mEq/L (-2.0 to +3.0); CO2 Tension 27.7 mmHg (35.0-45.0); O2 Tension (PaO2) 77.6 mmHg (> 80.0); pH, Arterial 7.46 (7.35-7.45)
[2018-04-23 06:56] LABS: Calcium, Ionized 1.2 mmol/L (1.12-1.30); Carboxyhemoglobin (COHb) 1.5 gm% (0.0-3.0); Hematocrit-ABG 18.3 % (42.0-52.0); Hemoglobin (Hb) 11.7 g/dL (14.0-18.0); Potassium - ABG Lab 3.9 mmol/L (3.70-5.30)
[2018-04-23 06:57] LABS: ALV-art Gradient 66.025 (0-20); Puncture Site LRA
[2018-04-23] MEDS ORDERED: DC Sedation Protocol FS ONE (08:06)
--- NOTE | 2018-04-23 08:21 | PRG ---
DATE OF SERVICE: 04/23/2018 He is more responsive. He is off all pressors. He is on a CPAP with good tidal volume, good spontan eous ventilation. PHYSICAL EXAMINATION: VITAL SIGNS: Pulse 61, blood pressure 112/69, respiration rate 18, temperature is 99. X-ray is clear. CHEST: Chest reveals decreased breath sounds, no wheezing. CARDIAC: Normal S1, S2, no gallops. ABDOMEN: Distended, soft. EXTREMITIES: Contracted. NEUROLOGIC: He opens his eyes. LABORATORY: White count 10,000, H&H 10 and 31. Platelet count is 74,000. PO2 77, pCO2 27.47. He is on a CPAP. Electrolytes are normal. His body fluid is growing multiple organisms including Pseudomonas and Enterococcus which is apparent ly sensitive to his present antibiotic. IMPRESSION: 1. Abdominal sepsis status post colostomy. 2. Right adrenal deficiency. 3. Supraventricular tachycardia. PLAN: I am planning to wean and extubate him today. Nutrition as per Surgery. One-half hour critical care time.
--- NOTE | 2018-04-23 09:26 | RAD ---
PORTABLE AP CHEST: Date: 04/23/18 HISTORY: On ventilator. Central line placement. COMPARISON: 04/22/18. FINDINGS: Endotracheal tube remains in place. The tip is difficult to visualize, but overlies the T1 vertebral body well above the level of the rosana. This appears just above the level of the thoracic inlet. Bo ogastric tube and left subclavian central venous catheters remain in place. Bronchovascular markings are accentuated by the shallow depth of inspiration. Cardiac silhouette is within normal limits. Ther e has been no other interval change. IMPRESSION: 1. Endotracheal tube noted in place. Tip appears to overlie the T1 vertebral body and above the thor acic inlet. 2. The left subclavian central venous catheter and nasogastric tubes are stable in position. 3. Mild atelectasis left lung base. Chest is otherwise stable. POS: [facility]
[2018-04-23] MEDS: Famotidine/PF 20 mg/2ml Vial SLOW IVP SCH ×2 (09:28→21:40)
--- NOTE | 2018-04-23 10:03 | PRG ---
DATE OF SERVICE: 04/23/2018 SUBJECTIVE: Mr. Melgar is postoperative day #6 from a laparoscopic sigmoid colectomy with end colos narayan, postoperative day #4 from a laparoscopic washout and placement of a drain. He remained ventila shahrzad in the Intensive Care Unit until this morning. Dr. Cody has extubated him and he appears to be s table at this time. At the time of his washout cultures of his abdominal fluid grew multiple organis ms, although there was no evidence of any ongoing leakage at that time. His drain fluid has gone fro m being clear serous to somewhat cloudy, but without evidence of enteric material. He remains on ami odarone to control his tachycardia. He is followed by both Cardiology and Pulmonary Medicine. He currently appears comfortable in the Intensive Care Unit with a nasogastric tube in place. PHYSICAL EXAMINATION: VITAL SIGNS: His temperature currently is 99.8. Pulse is 66, blood pressure 118/58. His urine outp ut was 1500 mL for yesterday. Ostomy output was 170 mL and right lower quadrant drain output was abo ut 330 mL. LUNGS: Clear to auscultation. CARDIAC: Regular rate and rhythm. ABDOMEN: Soft, but appears to be without obvious bowel sounds. The ostomy is viable. There is some gas in the ostomy bag, but no formed stool. LABORATORY STUDIES: His white blood cell count is up to 10.6. He had a very low white blood cell co unt of 2.4 on 04/20/2018 and it has been rising since then. His hemoglobin is stable at 10.2, platel et count was as low as 57 and is now up to 74. He still has a 25% bandemia. His chemistry panel rev eals no significant electrolyte abnormalities. Renal function is normal. His glucose levels have be en elevated between 170 and 220. Albumin is low at 2.0, but prealbumin is up to 11. It was less concepción n 5 when he was started on TPN 3 days ago. ASSESSMENT: He is stable and improving. He had peritonitis following his surgery, although I am unc ertain from what etiology. He could have had a leak in his colon that led to an intra-abdominal cont amination at the time of his surgery. He could have had a leak from his stapled Lin's pouch. E ither way, at the time of his washout I could not find an area of obvious leak and therefore just was hed him out and drained him. He appears to be improving. The next goal is to be able to initiate fe eds. I will probably try this through the nasogastric tube initially before we have him start eating . For now, I would continue to monitor him in the Intensive Care Unit, continue his IV antibiotics a nd TPN.
[2018-04-23] MEDS: Budesonide 0.5 MG/2 ML NEB INH SCH (18:27)
[2018-04-23] MEDS: Sodium Acetate 2 mEq/ml 40 MEQ, Sodium Chloride 30 MEQ, Potassium Chloride 20 MEQ, Pota... IV SCH (22:18)
[2018-04-24] MEDS: Insulin Regular 300 UNITS/3 ML VIAL SC PRN ×3 (00:21→13:17)
[2018-04-24] MEDS: Piperacillin/Tazobactam 3.375 GM in Sodium Chloride 0.9% 100 ML IVPB SCH ×5 (00:25→23:48)
[2018-04-24 06:14] LABS: ALT (SGPT) 85 U/L (8-55); AST (SGOT) 77 U/L (5-34); Albumin 2.1 g/dL (3.5-5.0); Alkaline Phosphatase 180 U/L (40-150); Anion Gap 11 mmol/L (10-20); BUN (Urea Nitrogen) 28 mg/dL (8.4-25.7); Bilirubin, Total 0.6 mg/dL (0.2-1.2); Calc. Creatinine Clearance 101 mL/min (70-130); Calcium 7.7 mg/dL (7.8-10.44); Carbon Dioxide 21 mmol/L (22-29); Chloride 111 mmol/L (98-107); Estimated GFR-MDRD Greater than 90; Globulin 2.4 g/dL (2.4-3.5); Glucose 216 mg/dL (70-105); Magnesium 1.9 mg/dL (1.6-2.6); Phosphorus 2.7 mg/dL (2.3-4.7); Potassium 3.9 mmol/L (3.5-5.1); Protein, Total 4.5 g/dL (6.0-8.3); Sodium 139 mmol/L (136-145)
[2018-04-24 06:31] LABS: Band 19 % (5-11); Hemoglobin 10.5 g/dL (14.0-18.0); Lymphocytes 6 % (21-51); MDiff Complete? YES; Mean Corpuscular HGB CONC 33.8 g/dL (32.0-36.0); Mean Corpuscular Hemoglobin 32.2 pg (27.0-31.0); Mean Corpuscular Volume 95.2 fL (78.0-98.0); Mean Platelet Volume 8.6 fL (7.4-10.4); Monocytes 4 % (0-10); Myelocyte 1 % (0-0); Neutrophil 70 % (42-75); Platelet Count 129 thou/uL (130-400); RBC Distribution Width 13.7 % (11.5-14.5); Red Blood Cell (RBC) Count 3.25 mill/uL (4.70-6.10); White Blood Cell (WBC) Count 13.8 thou/uL (4.8-10.8)
[2018-04-24] MEDS: Budesonide 0.5 MG/2 ML NEB INH SCH ×2 (07:02→18:20)
--- NOTE | 2018-04-24 08:17 | PRG ---
DATE OF SERVICE: 04/24/2018 This morning remains in the ICU. PHYSICAL EXAMINATION: VITAL SIGNS: Sats 86 on 2 liters, respirations 27, pulse 74, blood pressure 130 \78_. Unable to communicate because of severe mental retardation. CHEST: Decreased breath sounds. I hear no wheezing. CARDIAC: Normal S1, S2. No gallops. He is on amiodarone. ABDOMEN: Distended, but soft. LABORATORY: White count 13,000, H&H 10 and 30, platelet count is 129, still got some bandemia, 19 bands, glucose 216. IMPRESSION: 1. Sepsis syndrome, status post lap. 2. Hypotension, some element of adrenal insuffiency relative_. 3. Supraventricular tachycardia. PLAN: Disposition as per Surgery. He appears to be stable. He could be transferred out to the surgical floor. Antibiotics as outlined. MTDD
[2018-04-24] MEDS ORDERED: Amiodarone HCl 450 MG, Admixture Fee 1 EACH in Dextrose 5% in Water 250 ML IVPB SCH (08:30)
[2018-04-24] MEDS: Amiodarone 200 MG TAB PER TUBE SCH ×2 (08:43→21:10)
[2018-04-24] MEDS: Famotidine/PF 20 mg/2ml Vial SLOW IVP SCH ×2 (08:43→21:10)
[2018-04-24] MEDS: Hydrocortisone Sod Succ/PF 100 mg/2 ml Vial IVP SCH ×2 (08:44→21:09)
[2018-04-24] MEDS ORDERED: Polyethylene Glycol 3350 17 GM Packet PO SCH (11:30)
[2018-04-24] MEDS: Enoxaparin Sodium 40 MG/0.4 ML SYRINGE SC SCH (21:08)
[2018-04-25 05:36] LABS: ALT (SGPT) 118 U/L (8-55); AST (SGOT) 53 U/L (5-34); Albumin 2.2 g/dL (3.5-5.0); Alkaline Phosphatase 170 U/L (40-150); Anion Gap 9 mmol/L (10-20); BUN (Urea Nitrogen) 31 mg/dL (8.4-25.7); Bilirubin, Total 0.6 mg/dL (0.2-1.2); Calc. Creatinine Clearance 112 mL/min (70-130); Calcium 7.7 mg/dL (7.8-10.44); Carbon Dioxide 24 mmol/L (22-29); Chloride 113 mmol/L (98-107); Estimated GFR-MDRD Greater than 90; Globulin 2.5 g/dL (2.4-3.5); Glucose 122 mg/dL (70-105); Magnesium 1.8 mg/dL (1.6-2.6); Phosphorus 3.4 mg/dL (2.3-4.7); Protein, Total 4.7 g/dL (6.0-8.3); Sodium 142 mmol/L (136-145)
[2018-04-25] MEDS: Piperacillin/Tazobactam 3.375 GM in Sodium Chloride 0.9% 100 ML IVPB SCH ×3 (05:56→17:21)
[2018-04-25 06:05] LABS: Band 14 % (5-11); Hemoglobin 10.9 g/dL (14.0-18.0); Lymphocytes 11 % (21-51); MDiff Complete? YES; Mean Corpuscular HGB CONC 33.8 g/dL (32.0-36.0); Mean Corpuscular Hemoglobin 32.1 pg (27.0-31.0); Mean Corpuscular Volume 95.2 fL (78.0-98.0); Mean Platelet Volume 7.8 fL (7.4-10.4); Monocytes 2 % (0-10); Neutrophil 73 % (42-75); Platelet Count 181 thou/uL (130-400); RBC Distribution Width 13.8 % (11.5-14.5); Red Blood Cell (RBC) Count 3.39 mill/uL (4.70-6.10); White Blood Cell (WBC) Count 15.1 thou/uL (4.8-10.8)
[2018-04-25] MEDS: Budesonide 0.5 MG/2 ML NEB INH SCH ×2 (07:38→18:37)
--- NOTE | 2018-04-25 08:36 | PRG ---
DATE OF SERVICE: 04/25/2018 SUBJECTIVE: This morning, he opens his eyes, pretty much aphasic. OBJECTIVE: VITAL SIGNS: Sats are 95% on room air, pulse is 74, blood pressure 141/60, respiratory rate is about 20. Difficult to assess his status. CHEST: I hear no wheezing. CARDIAC: Normal S1, S2, no gallops. ABDOMEN: Soft, distended. LABORATORY DATA: Normal. Bicarbonate is 24. White count 15,000. IMPRESSION: 1. Abdominal sepsis. 2. Mental retardation. 3. Relative adrenal insufficiency. PLAN: Continue Zosyn, neb treatments, steroids. Continue to follow while in the ICU.
[2018-04-25] MEDS: Hydrocortisone Sod Succ/PF 100 mg/2 ml Vial IVP SCH ×2 (09:29→21:02)
[2018-04-25] MEDS: Amiodarone 200 MG TAB PER TUBE SCH ×2 (09:29→20:45)
[2018-04-25] MEDS: Polyethylene Glycol 3350 17 GM Packet PO SCH (09:29)
[2018-04-25] MEDS: Famotidine/PF 20 mg/2ml Vial SLOW IVP SCH ×2 (09:30→21:02)
--- NOTE | 2018-04-25 14:13 | PRG ---
DATE OF SERVICE: 04/25/2018 Mr. Melgar is postoperative day #8 from a laparoscopic sigmoid colectomy with end colostomy and post operative day #6 from a laparoscopic washout and placement of a drain. He is still in the Intensive Care Unit. He came off the ventilator 2 days ago. He continues to be followed by Dr. Cody. He has been stable since his extubation. He makes a grunting sound and has somewhat grunting respirations, but in spite of this, he is well-oxygenated and hemodynamically stable. It is impossible to discern whether he is uncomfortable or not. He is now at a goal rate for his tube feeds at 70 mL per hour. His colostomy continues to function w ell. The right lower abdominal drain output is decreasing and seems to be clearing. PHYSICAL EXAMINATION: VITAL SIGNS: He is afebrile with a maximum temperature of 98.6. Pulse is 75-85 on amiodarone, blood pressure is 142/87, oxygen saturation is 98-100 on 2 liters nasal cannula. LUNGS: Clear to auscultation. ABDOMEN: Difficult to examine. This seems to be somewhat firm, but how much of this is intentional is difficult to tell. He has a drain in his right lower abdomen and an ostomy in his left lower abdo men that is viable and functioning. LABORATORY STUDIES: His metabolic panel from today shows minor electrolyte irregularities. His gluc ose level is better controlled between 108 and 120 (since he has come off his TPN). His albumin is l ow at 2.2, transaminases are somewhat elevated. Prealbumin is improved at 20 (now its normal). ASSESSMENT: He appears to be stable following his surgery. His peritonitis seems to be improving. For now, I would continue his IV antibiotics as well as his tube feeds. He appears to be stable for transfer to the floor. In light of his recent arrhythmia and his amiodarone intake, I will defer to Cardiology whether they want to transfer to telemetry or whether he could go to the surgical floor. We will begin to get him out of bed to his wheelchair as is his custom at the [facility]. At some point, we will need to evaluate for beginning oral intake as opposed to just tube feeds per h is nasogastric tube.
--- NOTE | 2018-04-25 14:51 | RAD ---
KUB: Date: 04/25/18 COMPARISON: None. HISTORY: Nasogastric tube placement. FINDINGS: Supine imaging is provided, limiting evaluation for small bowel obstruction and free intraperitoneal air. There is gaseous distention of bowel throughout the abdomen/pelvis which could represent large a nd/or small bowel gaseous distention. There is a nasogastric tube curling in the right upper quadrant . There is catheter tubing oriented in a horizontal configuration within the upper pelvis and then exte nding in a vertical orientation into the expected location of the left paracolic gutter. Perhaps this is a postsurgical drain. There is significant elevation of the right hemidiaphragm, incompletely eliot ged on this exam. IMPRESSION: Nasogastric tube curls in left upper quadrant. Extensive gaseous distention of bowel may represent la rge and/or small bowel. Findings may be on the basis of obstruction or ileus. Follow-up advised. POS: [facility]
[2018-04-25] MEDS: Enoxaparin Sodium 40 MG/0.4 ML SYRINGE SC SCH (21:02)
[2018-04-26] MEDS: Piperacillin/Tazobactam 3.375 GM in Sodium Chloride 0.9% 100 ML IVPB SCH ×5 (00:49→23:21)
[2018-04-26 05:58] LABS: ALT (SGPT) 91 U/L (8-55); AST (SGOT) 36 U/L (5-34); Albumin 2.3 g/dL (3.5-5.0); Alkaline Phosphatase 151 U/L (40-150); Anion Gap 10 mmol/L (10-20); BUN (Urea Nitrogen) 31 mg/dL (8.4-25.7); Bilirubin, Total 0.6 mg/dL (0.2-1.2); Calc. Creatinine Clearance 114 mL/min (70-130); Calcium 7.5 mg/dL (7.8-10.44); Carbon Dioxide 25 mmol/L (22-29); Chloride 114 mmol/L (98-107); Estimated GFR-MDRD Greater than 90; Globulin 2.4 g/dL (2.4-3.5); Glucose 101 mg/dL (70-105); Potassium 3.8 mmol/L (3.5-5.1); Protein, Total 4.7 g/dL (6.0-8.3); Sodium 145 mmol/L (136-145)
[2018-04-26 06:12] LABS: Band 14 % (5-11); Lymphocytes 4 % (21-51); MDiff Complete? YES; Mean Corpuscular HGB CONC 32.8 g/dL (32.0-36.0); Mean Corpuscular Hemoglobin 31.2 pg (27.0-31.0); Mean Corpuscular Volume 95.2 fL (78.0-98.0); Mean Platelet Volume 7.7 fL (7.4-10.4); Monocytes 1 % (0-10); Neutrophil 81 % (42-75); Nucleated RBC 1 % (0); PLT Morphology Comment Appears Adequate; Platelet Count 222 thou/uL (130-400); Red Blood Cell (RBC) Count 3.19 mill/uL (4.70-6.10); White Blood Cell (WBC) Count 13.3 thou/uL (4.8-10.8)
[2018-04-26] MEDS: Budesonide 0.5 MG/2 ML NEB INH SCH ×2 (07:11→19:11)
--- NOTE | 2018-04-26 08:31 | PRG ---
DATE OF SERVICE: 04/26/2018. SUBJECTIVE: The patient remains in the ICU bed, because he is waiting for a telemetry bed and has be en no acute events overnight. PHYSICAL EXAMINATION: VITAL SIGNS: Temperature is 98.4, pulse 72, blood pressure 142/61, O2 sat 95%. HEENT: Unremarkable. NECK: No JVD. CHEST: Clear, without wheezing or rhonchi. CARDIAC: S1 and S2 regular. ABDOMEN: Soft, colostomy noted. EXTREMITIES: No edema. LABORATORY DATA: White blood cell count 13, hematocrit 30, platelet count 222. Sodium 145, potassiu m 3.8, chloride 114, CO2 25, BUN 31, creatinine 0.6, glucose 101. ASSESSMENT: 1. Status post mechanical ventilation. 2. Abdominal sepsis. 3. Mental retardation. 4. Relative adrenal insufficiency. PLAN: The patient is continuing antibiotics. I will go ahead and clean up his MAR as there are some medicines on there that he is no longer needing.
[2018-04-26] MEDS: Famotidine/PF 20 mg/2ml Vial SLOW IVP SCH (08:55)
[2018-04-26] MEDS: Hydrocortisone Sod Succ/PF 100 mg/2 ml Vial IVP SCH ×2 (08:55→20:43)
[2018-04-26] MEDS: Amiodarone 200 MG TAB PER TUBE SCH ×2 (10:05→20:44)
--- NOTE | 2018-04-26 12:56 | PRG ---
DATE OF SERVICE: 04/26/2018 SUBJECTIVE: Mr. Melgar is postoperative day #9 from laparoscopic sigmoid colectomy with end colosto my and postoperative day #7 from laparoscopic washout and placement of a drain. He is still in the ntensive Care Unit, although he has been extubated for 3 or 4 days now. He has been stable from a pu lmonary standpoint, although he still makes a grunting sound while breathing. He apparently pulled h is nasogastric tube out overnight. He was receiving full dose tube feeds and tolerating them well. He is having minimal output from his colostomy other than serosanguineous appearing fluid. PHYSICAL EXAMINATION: VITAL SIGNS: He is afebrile with a temperature of 99.0, pulse is 60, blood pressure 157/69. LUNGS: Clear to auscultation. ABDOMEN: Appears to be soft. Bowel sounds are present, but hypoactive. Ostomy is viable, but with minimal stool output from this. I digitally explored the stoma and other than some air coming out th rough the colostomy, there were no significant findings. His colon was very dilated and boggy proxim al to the ostomy and it still has this palpable findings. LABORATORY STUDIES: His white blood cell count has dropped from 15 yesterday to 13 today, hemoglobin is 10, platelet count 222,000. His comprehensive metabolic profile reveals essentially normal elect rolytes. His albumin is slightly up at 2.3. ASSESSMENT AND PLAN: Patient who continues to recuperate from peritonitis following his surgery. St ill not certain what the origin of his peritonitis was. His drain continues to drain mildly cloudy f luid that is mostly serous. I am not certain why he does not have better stool output from his ostom y. May need to consider irrigating this. He continues to get MiraLax. He continues to receive IV a ntibiotics using Zosyn. As he is alert and hemodynamically stable, transfer orders have been written . Dr. Jolly, his cash specialist, requests that he goes to the telemetry floor secondary to his rece nt arrhythmia.
--- NOTE | 2018-04-26 13:27 | RAD ---
ABDOMEN 1 VIEW: Date: 04/26/18 HISTORY: Ileus. Abdominal pain. COMPARISON: 04/25/18. FINDINGS: Nasogastric tube not seen over the stomach. Vertically oriented density over the upper right mediasti num partially visualized. Gaseous distention of the stomach and bowel is similar in appearance to the prior study. Radiopaque l ine in a U shape across the lower abdomen and circular opacity associated with the left lower quadran t ostomy are unchanged. IMPRESSION: Nasogastric tube not seen within the stomach. Has it been removed?, or is the vertically oriented mary e over the right upper mediastinum the distal tip of the nasogastric tube, that should be advanced ap proximately 15 cm for better positioning. Gaseous distention of the stomach and bowel, with the appea rocky of an ileus, is unchanged from the previous exam. POS: [facility]
[2018-04-26] MEDS: Enoxaparin Sodium 40 MG/0.4 ML SYRINGE SC SCH (20:44)
[2018-04-26] MEDS: Polyethylene Glycol 3350 17 GM Packet PO SCH (20:44)
[2018-04-26] MEDS: Famotidine 20 MG TAB PER TUBE SCH (20:44)
[2018-04-27] MEDS: Piperacillin/Tazobactam 3.375 GM in Sodium Chloride 0.9% 100 ML IVPB SCH ×4 (05:42→23:24)
[2018-04-27 05:44] LABS: ALT (SGPT) 67 U/L (8-55); AST (SGOT) 25 U/L (5-34); Albumin 2.2 g/dL (3.5-5.0); Alkaline Phosphatase 118 U/L (40-150); Anion Gap 8 mmol/L (10-20); BUN (Urea Nitrogen) 29 mg/dL (8.4-25.7); Bilirubin, Total 0.5 mg/dL (0.2-1.2); Calc. Creatinine Clearance 112 mL/min (70-130); Calcium 7.3 mg/dL (7.8-10.44); Carbon Dioxide 25 mmol/L (22-29); Chloride 117 mmol/L (98-107); Estimated GFR-MDRD Greater than 90; Globulin 2.5 g/dL (2.4-3.5); Glucose 92 mg/dL (70-105); Potassium 4.2 mmol/L (3.5-5.1); Protein, Total 4.7 g/dL (6.0-8.3); Sodium 146 mmol/L (136-145)
[2018-04-27 05:48] LABS: Cardiac Risk 5.6 (Less than 4.5)
[2018-04-27 06:02] LABS: Band 6 % (5-11); Hemoglobin 10.3 g/dL (14.0-18.0); Hypochromia SLIGHT = 6-15 cells (100X) (0-5/hpf); Lymphocytes 3 % (21-51); MDiff Complete? YES; Mean Corpuscular HGB CONC 32.5 g/dL (32.0-36.0); Mean Corpuscular Hemoglobin 31.2 pg (27.0-31.0); Mean Corpuscular Volume 95.8 fL (78.0-98.0); Mean Platelet Volume 7.6 fL (7.4-10.4); Monocytes 2 % (0-10); Neutrophil 89 % (42-75); PLT Morphology Comment Appears Adequate; Platelet Count 235 thou/uL (130-400); RBC Distribution Width 13.9 % (11.5-14.5); Red Blood Cell (RBC) Count 3.31 mill/uL (4.70-6.10); White Blood Cell (WBC) Count 10.7 thou/uL (4.8-10.8)
[2018-04-27 07:18] LABS: INR-International Normal Ratio 1.3; Prothrombin Time 16.1 SEC (12.0-14.7)
[2018-04-27] MEDS: Budesonide 0.5 MG/2 ML NEB INH SCH ×2 (07:20→18:44)
[2018-04-27] MEDS: Hydrocortisone Sod Succ/PF 100 mg/2 ml Vial IVP SCH ×2 (07:50→21:37)
[2018-04-27] MEDS: Polyethylene Glycol 3350 17 GM Packet PO SCH (07:51)
[2018-04-27] MEDS: Amiodarone 200 MG TAB PER TUBE SCH ×2 (07:53→21:38)
[2018-04-27] MEDS: Famotidine 20 MG TAB PER TUBE SCH ×2 (07:53→21:38)
[2018-04-27] MEDS: Lactated Ringer's 1,000 ML IV SCH (08:07)
--- NOTE | 2018-04-27 08:33 | PRG ---
DATE OF SERVICE: 04/27/2018 Mr. Melgar is postoperative day #10 from laparoscopic sigmoid colectomy with end colostomy performed in treatment of chronic constipation. He is postoperative day #9 from laparoscopic washout and plac ement of a drain. He had polymicrobial peritonitis. The origin of this was never certain. He was transferred from the Intensive Care Unit yesterday and is now on telemetry. He had an episode of atrial fibrillation with rapid ventricular response for which he is currently on amiodarone. He has had no further episodes over the past 3-4 days. He had pulled out his nasogastric tube. He appeared to be tolerating tube feeds. He has been taking some by mouth. Speech Therapy saw him yesterday and had some concerns, but given his underlying lev el of function I recommended continuing his diet as he was taking before his admission. He did have some stool output from his ostomy several days ago, but now it looks like it is mostly serosanguineou s output. KUB obtained yesterday reveals diffuse gaseous distention of stomach, small bowel and colo n PHYSICAL EXAMINATION: VITAL SIGNS: He remains afebrile with a temperature 98.0, pulse 65, blood pressure is 124/60. GENER AL: He is resting comfortably in bed. Of course he cannot converse. LUNGS: Clear to auscultation. ABDOMEN: Still seems to be relatively firm with hypoactive bowel sounds. His right abdominal ostomy is viable. He has got some abdominal wall edema lateral to his ostomy, but no evidence of celluliti s. LABORATORY STUDIES: Electrolytes revealed that his sodium and chloride are both a little bit high. His albumin is still low at 2.2. Liver function tests are normalizing after having been transiently elevated. CBC reveals that his white blood cell count is down to normal at 10.7. He still has a lef t shift with 89% neutrophils. His hemoglobin is stable at 10.3, platelet counts are stable at 235. ASSESSMENT AND PLAN: The patient appears to be relatively stable. His bowels simply are not functio monica appropriately and this may have been his underlying problem to begin with. I will start him on Reglan today to see if this will help. He is already on MiraLax. He still has a drain in his abdome n, but this is draining mostly serous appearing fluid. There is a little cloudiness to it, but not m uch. He remains on Zosyn in treatment of his peritonitis. For now I think that he requires a furthe r period of observation to make sure that he is tolerating his diet okay and that his bowels are func tioning before he is ready for discharge.
[2018-04-27] MEDS: Ketorolac Tromethamine 30 MG/ML VIAL IVP PRN ×2 (11:32→18:01)
[2018-04-27] MEDS: Metoclopramide HCl 10 MG/2 ML VIAL IVP SCH ×2 (11:33→21:37)
[2018-04-27] MEDS ORDERED: Sodium Chloride 0.9% 10 ML ONE (18:00)
[2018-04-27] MEDS: Enoxaparin Sodium 40 MG/0.4 ML SYRINGE SC SCH (21:37)
[2018-04-28] MEDS: Lactated Ringer's 1,000 ML IV SCH ×2 (03:51→21:53)
[2018-04-28] MEDS: Metoclopramide HCl 10 MG/2 ML VIAL IVP SCH ×3 (05:34→21:15)
[2018-04-28] MEDS: Piperacillin/Tazobactam 3.375 GM in Sodium Chloride 0.9% 100 ML IVPB SCH ×4 (05:34→23:46)
[2018-04-28] MEDS: Budesonide 0.5 MG/2 ML NEB INH SCH ×2 (07:37→19:01)
[2018-04-28] MEDS ORDERED: NEOSTIGMINE SC SCH (08:00)
[2018-04-28] MEDS: Hydrocortisone Sod Succ/PF 100 mg/2 ml Vial IVP SCH ×3 (08:48→21:15)
[2018-04-28] MEDS: Neostigmine 0.5 MG in Syringe 0 ML SC SCH ×3 (08:48→21:33)
[2018-04-28] MEDS: Polyethylene Glycol 3350 17 GM Packet PO SCH (08:48)
[2018-04-28] MEDS: Famotidine 20 MG TAB PER TUBE SCH ×3 (08:50→21:13)
[2018-04-28] MEDS: Amiodarone 200 MG TAB PER TUBE SCH ×3 (08:50→21:11)
--- NOTE | 2018-04-28 16:13 | PRG ---
DATE OF SERVICE: 04/28/2018 I am seeing Mr. Melgar on behalf of Dr. Nunez. SUBJECTIVE: Mr. Melgar is a 62-year-old man who is postoperative day #9 today status post laparosco pic abdominal washout and drain placement. The patient remains with low colostomy output and abdominal distention. He does tolerate oral intake rather poorly according to his nurses. He is currently on a pureed diet and his appetite is not violeta te good. OBJECTIVE: VITAL SIGNS: Today includes blood pressure 153/82, pulse is 46, respiratory rate is 22, temperature is 97.9 degrees Fahrenheit, oxygen saturation is 98% on 2 liters by nasal cannula oxygen. HEART: Reveals sinus bradycardia. No murmurs or gallops auscultated. GENERAL: The patient is on amiodarone currently. LUNGS: Clear to auscultation bilaterally. Breathing regular and unlabored. ABDOMEN: Soft, but markedly distended. Ostomy is viable with minimum output of liquid stool, no gas . Bowel sounds in all four quadrants appear normoactive. The patient has no peritoneal signs on exa mination. IMPRESSION: 1. Postoperative day #9 status post laparoscopic abdominal washout. 2. Postoperative adynamic ileus. PLAN: 1. We will start neostigmine 0.5 mg subcutaneously q.6h. and monitor the patient for resolution of t he ileus. Hopefully, marked by an increasing colostomy output. 2. I will continue with diet as tolerated. Otherwise, the patient is hemodynamically stable.
[2018-04-28] MEDS: Ketorolac Tromethamine 30 MG/ML VIAL IVP PRN (18:12)
[2018-04-28] MEDS: Enoxaparin Sodium 40 MG/0.4 ML SYRINGE SC SCH (21:18)
[2018-04-29] MEDS: Hydrocortisone Sod Succ/PF 100 mg/2 ml Vial IVP SCH ×4 (02:48→21:51)
[2018-04-29] MEDS: Neostigmine 0.5 MG in Syringe 0 ML SC SCH ×2 (02:49→09:08)
[2018-04-29] MEDS: Piperacillin/Tazobactam 3.375 GM in Sodium Chloride 0.9% 100 ML IVPB SCH ×3 (05:30→18:26)
[2018-04-29] MEDS: Metoclopramide HCl 10 MG/2 ML VIAL IVP SCH ×3 (05:31→21:51)
[2018-04-29] MEDS: Budesonide 0.5 MG/2 ML NEB INH SCH ×2 (07:44→18:43)
[2018-04-29] MEDS: Polyethylene Glycol 3350 17 GM Packet PO SCH (10:46)
[2018-04-29] MEDS: Amiodarone 200 MG TAB PER TUBE SCH ×2 (10:46→22:10)
[2018-04-29] MEDS: Famotidine 20 MG TAB PER TUBE SCH ×2 (10:46→22:10)
[2018-04-29] MEDS: Lactated Ringer's 1,000 ML IV SCH (16:10)
--- NOTE | 2018-04-29 17:54 | RAD ---
KUB: Date: 04-29-18 Comparison: 04-26-18 History: Nasogastric tube verification. FINDINGS: There is gaseous distention of bowel in the upper abdomen/epigastric region. This may represent gaseo us distention of the stomach. A degree of gaseous distention of colon and/or small bowel is possible as well. There is a nasogastric tube curling in the left upper quadrant, likely in the region of the gastric body. IMPRESSION: Nonspecific gaseous distention of bowel in the upper abdomen with nasogastric tube curling in left up per quadrant. POS: [facility]
[2018-04-29] MEDS: Enoxaparin Sodium 40 MG/0.4 ML SYRINGE SC SCH (21:51)
--- NOTE | 2018-04-29 22:48 | RAD ---
PORTABLE SUPINE KUB: Date: 04-29-18 Time: 9:32 p.m. Comparison: 04-29-18 at 4:03 p.m. History: Evaluate nasogastric tube. FINDINGS: There is significant gaseous distention of bowel within the upper abdomen, not well characterized on this exam. Supine imaging and rotation limits assessment for free air and small bowel obstruction. Th ere is a nasogastric tube curling in the left upper quadrant, likely in the region of the gastric fun dus. IMPRESSION: Limited study secondary to rotation and supine positioning. Gaseous distention of bowel within the ab domen, incompletely assessed. Nasogastric tube curls in left upper quadrant. POS: [facility]
[2018-04-30] MEDS ORDERED: Ketamine 50 MG/ML VIAL ONE (01:50)
[2018-04-30] MEDS ORDERED: Midazolam HCl 2 mg/2 ml Vial ONE (01:51)
[2018-04-30] MEDS ORDERED: Sodium Chloride 0.9% 30 ML ONE (03:15)
[2018-04-30] MEDS: Budesonide 0.5 MG/2 ML NEB INH SCH (07:30)
[2018-04-30] MEDS ORDERED: Albumin 5% 500 ML ONE (07:46)
[2018-04-30 08:26] LABS: Hemoglobin 15.4 g/dL (14.0-18.0); Mean Corpuscular Hemoglobin 31.9 pg (27.0-31.0); Mean Corpuscular Volume 96.8 fL (78.0-98.0); Mean Platelet Volume 8.1 fL (7.4-10.4); Platelet Count 406 thou/uL (130-400); Red Blood Cell (RBC) Count 4.83 mill/uL (4.70-6.10); White Blood Cell (WBC) Count 5.7 thou/uL (4.8-10.8)
[2018-04-30 08:33] LABS: Lactic Acid 3.3 mmol/L (0.5-2.2)
[2018-04-30 08:34] LABS: Actual Bicarbonate (HCO3a) 16.7 mEq/L (22-28); Base Excess (BEa) -7.5 mEq/L (-2.0 to +3.0); CO2 Tension 30.7 mmHg (35.0-45.0); Hemoglobin (Hb) 14.4 g/dL (14.0-18.0); O2 Tension (PaO2) 141.4 mmHg (> 80.0); pH, Arterial 7.35 (7.35-7.45)
[2018-04-30 08:35] LABS: ALV-art Gradient 103.425 (0-20); Calcium, Ionized 1.1 mmol/L (1.12-1.30); Carboxyhemoglobin (COHb) 1.7 gm% (0.0-3.0); Potassium - ABG Lab 3.2 mmol/L (3.70-5.30); Puncture Site LR
--- NOTE | 2018-04-30 08:50 | RAD ---
ABDOMEN 1 VIEW: HISTORY: Dobbhoff tube placement. FINDINGS: There is a feeding tube with tip directed in the projection of the distal stomach. There is air in l oops of bowel. Clips are present in the abdomen. Degenerative changes are present in the spine. POS: [facility]
[2018-04-30 09:08] LABS: Band 54 % (5-11); Lymphocytes 14 % (21-51); MDiff Complete? YES; Metamyelocyte 2 % (0-0); Monocytes 5 % (0-10); Neutrophil 24 % (42-75); RBC Morphology Normal; Reactive Lymphocytes 1 % (0-10); Vacuoles SLIGHT
[2018-04-30 09:18] LABS: Anion Gap 12 mmol/L (10-20); BUN (Urea Nitrogen) 29 mg/dL (8.4-25.7); Calc. Creatinine Clearance 114 mL/min (70-130); Calcium 7.5 mg/dL (7.8-10.44); Carbon Dioxide 19 mmol/L (22-29); Chloride 122 mmol/L (98-107); Estimated GFR-MDRD Greater than 90; Glucose 75 mg/dL (70-105); Magnesium 1.9 mg/dL (1.6-2.6); Phosphorus 5.8 mg/dL (2.3-4.7); Potassium 3.8 mmol/L (3.5-5.1); Sodium 149 mmol/L (136-145)
--- NOTE | 2018-04-30 09:28 | PRG ---
DATE OF SERVICE: 04/30/2018 SUBJECTIVE: This is a 62-year-old gentleman went back to surgery this morning after he was found to have ischemic bowel. Please review the notes by the surgeon. Intubated on the vent, sedated. OBJECTIVE: VITAL SIGNS: Pulse 100, blood pressure 130/80, respirations 20, afebrile. CHEST: Reveals decreased breath sounds, no wheezing. CARDIAC: Normal S1, S2, no gallops. ABDOMEN: Soft, no masses. LABORATORY DATA: His white count is 5000, H&H is 15 and 46, platelet count 406 , Ph 7.4, pCO2 40 rate of 14, 40%, 450 tidal volume. IMPRESSION: 1. Status post recurrent abdominal sepsis, status post recurrent laparoscopic. 2. Mental retardation. 3. Septic shock. PLAN: At this stage, he is not weanable. We will continue supportive care. Probably he is going to need TPN. We will discuss with attending surgeon as they arrive. Long-term prognosis is grave. One-half hour critical care time. JANINA
[2018-04-30] MEDS: Metoclopramide HCl 10 MG/2 ML VIAL IVP SCH ×3 (10:17→21:05)
[2018-04-30] MEDS: Hydrocortisone Sod Succ/PF 100 mg/2 ml Vial IVP SCH ×5 (10:17→23:00)
[2018-04-30] MEDS: Amiodarone 200 MG TAB PER TUBE SCH ×2 (10:18→20:39)
[2018-04-30] MEDS: Famotidine 20 MG TAB PER TUBE SCH ×2 (10:18→20:39)
[2018-04-30] MEDS: Polyethylene Glycol 3350 17 GM Packet PO SCH (10:19)
--- NOTE | 2018-04-30 10:42 | OP ---
DATE OF OPERATION: 04/30/2018 PREOPERATIVE DIAGNOSES: 1. Acute parastomal small bowel evisceration. 2. Fecal peritonitis. POSTOPERATIVE DIAGNOSES: 1. Acute parastomal small bowel evisceration. 2. Fecal peritonitis. 3. Extensive intraabdominal multiple abscesses. 4. Extensive intraabdominal adhesions. 5. Necrotic rectal stump. 6. Markedly dilated and atonic large bowel. OPERATIONS PERFORMED: 1. Exploratory laparotomy. 2. Extensive lysis of adhesions. 3. Total colectomy. 4. Closure of previous colostomy site. 5. Resection of necrotic rectal stump. 6. Extensive intraabdominal washout. 7. Guidewire exchange of a triple-lumen central venous catheter over guidewire. SURGEON: Jose Rosa D.O. ANESTHESIA: General endotracheal. ESTIMATED BLOOD LOSS: 300 mL FLUIDS GIVEN: 2500 mL crystalloids plus 2 units packed red blood cells. SPONGE AND INSTRUMENT COUNT: Certified as correct x2. COMPLICATIONS: None apparent at time of operation. 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 The colostomy failed as the patient has been markedly distended and not producing any stool over the last almost 2 weeks. H e is also status post laparoscopic abdominal washout for intraabdominal infection of undetermined armando ology. Earlier this morning, the patient had coughed and the nurse noted multiple loops of small bow el that had eviscerated adjacent to the colostomy site and all contaminated with some liquid stool an d brownish gutter water. In addition to this, the patient had developed worsening mental status. Fe javon peritonitis is suspected. Decision was made to bring the patient to the operating room for explo ration. FINDINGS: Consistent with markedly dilated large bowel, which was atonic. Multiple intraabdominal a bscesses were also encountered. The patient had extensive amount of intraabdominal adhesions involvi ng multiple small bowel loops. A rectal stump was also necrotic and opened with a large amount of pu s and fibrinous exudates in the deep pelvis. DESCRIPTION OF PROCEDURE: Informed consent obtained from the patient's power of state's attorney. The patie nt was brought to the operating room and placed in supine position. Following general anesthesia, a Renteria catheter was placed at the bedside drain. Nasogastric tube was placed to wall suction. The pr evious ostomy site was draped off the operative field and abdomen was sterilely prepped and draped in the usual fashion. A midline incision is made using #10 scalpel. Incision was carried through subc utaneous tissues maintaining hemostasis using thermocautery. Fascia was incised in midline exposing the peritoneum beneath which was grasped x2 with hemostats. The peritoneal cavity was sharply entere d using Metzenbaum scissors. Immediately multiple loops of small bowel were encountered, which were adhered. Extensive amount of fibrinous exudates and purulent fluids were also encountered along the way. Multiple interloop abscesses were encountered and small bowel was run from the ligament of Treitz to the terminal ileum. I did not find any pathology with respect to the small bowel, except for the adh esions which were meticulously taken down to avoid serosal tear. Large intestine was inspected from the cecum through the ascending, transverse, descending colon, and level of the colostomy site. All large bowel were markedly dilated and had no tone. We decided to proceed with a total colectomy. To achieve this, I fired a GEORGE stapler at the level of the exit of the descending colon to exclude the failed colostomy. This was done after the multiple loops of small bowel were reduced from the parast omal hernia that brought into the peritoneal cavity. The colostomy site was then closed within the a bdomen using interrupted sutures of 0 Vicryl. At this juncture, I turned my attention to the necroti c rectal stump. After all purulent fluid was drained from the pelvis and fibrinous exudates evacuate d, the rectal stump was dissected free from surrounding structures. I then fired a contour stapler t o excise the necrotic proximal rectal stump. I inspected the new staple line for adequate integrity. The rectal stump was passed off the operative field for onward transmission to pathology. I then p roceeded to take down the colon. The left colon was first mobilized along the white line of Toldt up wards. The splenic flexure was taken down bluntly and using cautery, care was taken to avoid injurie s to nearby structures. I then mobilized the transverse colon off of the gastrocolic ligament using a LigaSure. Again, care was taken to avoid injuries to the stomach in order to underlying structures . The right colon was then mobilized medially along the white line of Toldt, all ports taken down th e hepatic flexure. Care was taken to avoid injury to the readily identified duodenum as the colon wa s mobilized medially. At this juncture, I created a rent through the mesentery of the terminal ileum introducing a GEORGE stapler here and the bowel was divided. Mesentery of the entire colonic specimen was sterilely divided using LigaSure device with good hemostasis. The specimen was passed off the op erative field for onward transmission to pathology. Abdominal cavity was extensively irrigated with 11,000 mL of sterile saline until it was clear. Good hemostasis is noted in place. At this juncture , a core incision was made in the right lower quadrant at the site chosen for the exit of ileostomy. This was done using 15 scalpel. The incision was carried down to the level of fascia. A crucifix i ncision was made on the fascia through which a tonsil clamp was introduced into the peritoneal cavity . The core defect was then dilated to two fingerbreadths. A Lamin forcep introduced through this grasping the staple end of the terminal ileum, which was pulled through and secured within the abdomi nal cavity using 3-0 silk suture at 3 points. Finding no other pathology, exploration was terminated . All sponges and instruments were removed and accounted for. Fascia was approximated in the midlin e using a running stitch of #1 single stranded PDS. Subcutaneous tissues were again copiously irriga shahrzad with 2000 mL of sterile saline until it was clear. Bleeding points were controlled using cautery . Skin incision was closed using lary. Sterile dressings were applied. I then turned my attenti on to the ileostomy site. The staple line was excised using Moran scissors. A functional Chey ileo stomy was perfected using interrupted sutures of 3-0 Vicryl. Ostomy appliance was then put in place. I turned my attention now to the previous colostomy site. The securing sutures were individually e xcised and then the colostomy was passed off the operative field for onward transmission to pathology . I then closed the fascia anteriorly using interrupted sutures of 0 Vicryl. This ostomy site was t hen copiously irrigated with saline and then packed with Betadine saturated gauze. Sterile dressing was applied. The patient tolerated the operation without any apparent complications. Note that prio r to start of this case with a different gown and gloves, the left chest wall was sterilely prepped a nd draped in the usual fashion. We noted that the previous triple lumen that was placed, two proxima l ports were not functioning, decided to exchange this for another one over the guidewire. Achieved this, the entire site was widely sterilely prepped and draped in the usual fashion. A guidewire was passed through the distal port advancing this into the left subclavian vein without resistance. The previous catheter was then withdrawn. A brand-new triple-lumen central venous catheter was advanced over the guidewire and placed in the left subclavian vein without resistance. This was advanced unti l it was stopped at the 18 cm amanda. The guidewire is removed. Dark venous blood was aspirated from all 3 ports, which were individually flushed with saline. Catheter is secured to the anterior chest wall using 3-0 silk suture at 2 points. Sterile dressings were applied. The patient tolerated the o peration without any apparent complication and was returned to the Intensive Care Unit in critical, b ut stable condition.
[2018-04-30] MEDS ORDERED: Sodium Chloride 0.9% 500 ML IVPB SCH (11:45)
[2018-04-30] MEDS: Lactated Ringer's 1,000 ML IV SCH ×2 (11:53→17:20)
[2018-04-30] MEDS ORDERED: Succinylcholine Chloride 20 MG/ML 10 ml SYRINGE FS ONE (12:24)
[2018-04-30] MEDS ORDERED: ePHEDrine/0.9% NaCl/PF SYRINGE 50 mg/10 ml ONE (12:24)
[2018-04-30] MEDS ORDERED: Calcium Chloride 1 GM/10 ML Abboject SYRINGE ONE (12:24)
[2018-04-30] MEDS ORDERED: PHENYLEPHRINE-NS 100 MCG/ML 10 ML SYRINGE ONE (12:24)
[2018-04-30] MEDS ORDERED: Vecuronium 10 MG VIAL ONE (12:24)
[2018-04-30] MEDS: MEROPENEM 1 GM/50 ML 1 GM in Premix Bag 1 BAG IVPB SCH ×2 (13:03→21:05)
[2018-04-30] MEDS ORDERED: Norepinephrine 8 MG/250 ML BAG IVPB PRN (13:43)
--- NOTE | 2018-04-30 15:36 | RAD ---
SUPINE KUB: 04/30/2018 1:49 p.m. HISTORY: New nasogastric tube placement. COMPARISON: 04/30/2018 at 8:04 a.m. FINDINGS: Cutaneous lary are oriented vertically, to the right of midline, overlying the lower abdomen and p briana. There is catheter tubing overlying the lateral aspect of the right abdomen, as well as the pe lvis and left lower quadrant. There is an incompletely imaged nasogastric tube, its distal tip exten ding into the left upper quadrant and its SidePort near the gastroesophageal junction. The Dobhoff t ube has been removed since the prior exam. The tip of the nasogastric tube probably extends into the body of the stomach. Recommend advancing the nasogastric tube. There is nonspecific gaseous distention of bowel within the abdomen/pelvis with suggestion of diffuse bowel wall thickening, not well assessed on this exam. IMPRESSION: Postoperative changes as above. Nasogastric tube extends into the left upper quadrant. Nonspecific gaseous distention of bowel throughout the abdomen/pelvis with findings suggesting diffuse bowel wall thickening, on the basis of nonspecific bowel wall edema. CT could also be helpful to evaluate thes e findings. POS: [facility]
[2018-04-30] MEDS ORDERED: Furosemide 20 MG/2 ML VIAL SLOW IVP SCH ×2 (18:30→20:30)
[2018-04-30] MEDS: Enoxaparin Sodium 40 MG/0.4 ML SYRINGE SC SCH (20:39)
[2018-04-30] MEDS ORDERED: Furosemide 40 MG/4 ML VIAL SLOW IVP SCH (22:15)
[2018-04-30 23:46] LABS: Hemoglobin 12.8 g/dL (14.0-18.0); Platelet Count 366 thou/uL (130-400)
--- NOTE | 2018-05-01 00:11 | PRG ---
DATE OF SERVICE: 04/30/2018 SUBJECTIVE: The patient is hospital day #10, status post laparoscopic abdominal washout and drain pl acement. The patient previously had a colostomy placed last night. The patient had a NG tube placed for a suspected ileus. The patient had a large quantity of gastric content suction from his NG tube . The patient later pulled that NG tube out and while having that in place, the patient was reported ly retching and straining when the nurses noted that he had abdominal contents in his colostomy bag. We were called to bedside and evaluated and noted that the patient actually did have herniation of i ntestinal contents in his colostomy bag. The bag was removed and there was a brief attempt at reduci ng it. This was unable to happen. The patient was prepped for being taken to the operating room whe re he underwent exploratory laparotomy, extensive lysis of adhesions, total colectomy, closure of pre vious colostomy site, resection of necrotic rectal stump, extensive intra-abdominal washout, guidewir e exchange of triple-lumen central venous catheter over guidewire. The patient during the procedure received 2500 mL of crystalloid and also 2 units of packed red blood cells. This morning, it was not ed that his blood pressure was slowly trending down to approximately 100 systolic. Patient's urinary output was also gradually decreasing. The patient did remain afebrile though. OBJECTIVE: VITAL SIGNS: Temperature 100.0, heart rate 96, blood pressure 103/67, respirations 14, oxygen satura tion is 100% on mechanical ventilatory support. GENERAL: The patient is currently resting in critical care unit bed on the ventilator without sedati on. HEENT: Unchanged. LUNGS: Have scant rhonchi bilaterally. HEART: Slightly tachycardic with a regular rhythm. ABDOMEN: Somewhat distended, soft. Dressing is clean, dry, and intact. EXTREMITIES: Show capillary refill approximately 3 seconds and about 1+ pitting edema. LABORATORY DATA: White blood cell count 5.7, hemoglobin 15.4, hematocrit 46.7, platelets 406. Sodiu m 149, potassium 3.8, chloride 122, CO2 is 19, BUN 29, creatinine 0.74, glucose 75, magnesium 1.9, ph osphorus 5.8. BNP 654. Cortisol 20.9. RADIOGRAPHS: This morning, abdominal radiograph for NG tube placement shows a nasogastric tube exten ds into the left upper quadrant. There is a nonspecific gaseous distention of bowel throughout the a bdomen and pelvis with findings suggesting diffuse bowel wall thickening on the basis of nonspecific bowel wall edema. ASSESSMENT AND PLAN: 1. Status post exploratory laparotomy and above procedures. 2. Acute respiratory failure. 3. Likely early sepsis. Plan will be to continue full mechanical ventilatory support. Check cortisol level, crystalloid, and albumin boluses as needed. The patient will also receive Lasix. The patient is definitely in a gua rded condition. This was relayed to the patient's guardian who after lengthy discussion by her rosalba lebron, the patient was made DNR. The guardian also discussed withdrawing care. After discussion, it was agreed that we will attempt to continue resuscitations before withdrawing care and at least give the patient a little bit more time to see if he can recover from this to return to his baseline. Mary pang guardian agreed with this and will readdress this tomorrow with the surgical team. The patient was seen with Dr. Rosa this morning. The discussion with the guardian happened in the early afternoon.
[2018-05-01] MEDS: Lactated Ringer's 1,000 ML IV SCH (02:17)
[2018-05-01 05:06] LABS: Anion Gap 17 mmol/L (10-20); BUN (Urea Nitrogen) 41 mg/dL (8.4-25.7); Calc. Creatinine Clearance 48 mL/min (70-130); Calcium 7.2 mg/dL (7.8-10.44); Carbon Dioxide 18 mmol/L (22-29); Chloride 118 mmol/L (98-107); Estimated GFR-MDRD 43; Glucose 98 mg/dL (70-105); Potassium 3.1 mmol/L (3.5-5.1); Sodium 150 mmol/L (136-145)
[2018-05-01 05:18] LABS: Band 27 % (5-11); Hemoglobin 12.6 g/dL (14.0-18.0); Hypochromia SLIGHT = 6-15 cells (100X) (0-5/hpf); Lymphocytes 4 % (21-51); MDiff Complete? YES; Mean Corpuscular HGB CONC 34.5 g/dL (32.0-36.0); Mean Corpuscular Hemoglobin 32.8 pg (27.0-31.0); Mean Corpuscular Volume 95.1 fL (78.0-98.0); Mean Platelet Volume 7.7 fL (7.4-10.4); Monocytes 13 % (0-10); Neutrophil 56 % (42-75); PLT Morphology Comment Appears Adequate; Platelet Count 391 thou/uL (130-400); RBC Distribution Width 14.8 % (11.5-14.5); Red Blood Cell (RBC) Count 3.85 mill/uL (4.70-6.10); White Blood Cell (WBC) Count 19.3 thou/uL (4.8-10.8)
[2018-05-01] MEDS: Hydrocortisone Sod Succ/PF 100 mg/2 ml Vial IVP SCH ×4 (05:28→23:07)
[2018-05-01] MEDS: Metoclopramide HCl 10 MG/2 ML VIAL IVP SCH ×3 (05:28→21:14)
[2018-05-01] MEDS: MEROPENEM 1 GM/50 ML 1 GM in Premix Bag 1 BAG IVPB SCH ×3 (05:29→21:14)
[2018-05-01 06:52] LABS: Actual Bicarbonate (HCO3a) 14.4 mEq/L (22-28); Base Excess (BEa) -6.7 mEq/L (-2.0 to +3.0); CO2 Tension 19.3 mmHg (35.0-45.0); Carboxyhemoglobin (COHb) 1.5 gm% (0.0-3.0); Hemoglobin (Hb) 12.4 g/dL (14.0-18.0); O2 Tension (PaO2) 64.8 mmHg (> 80.0); Potassium - ABG Lab 3.1 mmol/L (3.70-5.30); Puncture Site LRA; pH, Arterial 7.49 (7.35-7.45)
[2018-05-01 06:53] LABS: ALV-art Gradient 59.755 (0-20)
--- NOTE | 2018-05-01 08:50 | RAD ---
SINGLE VIEW OF THE CHEST: COMPARISON: 04/23/18. HISTORY: Ventilated patient with respiratory failure. FINDINGS: A single view of the chest shows a normal-size cardiomediastinal silhouette. The lines and tubes are unchanged in position. There has been interval development of veil-like opacities which may represe nt layering pleural effusions. Adjacent atelectasis versus infiltrates may also be present. IMPRESSION: Bilateral pleural effusions with adjacent atelectasis versus infiltrate. POS: [facility]
--- NOTE | 2018-05-01 08:53 | PRG ---
DATE OF SERVICE: 05/01/2018 This morning he is on the vent, intubated, sedated. He opens his eyes. 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 PHYSICAL EXAMINATION: VITAL SIGNS: Pulse 103, blood pressure 111/72. He is on no pressors, sats are 90%. His I's and O's over the last 24 hours have been 5895 in, 2671 out. He has been afebrile. CHEST: Chest reveals decreased breath sounds, bilateral rhonchi. CARDIAC: Sinus tachycardia. ABDOMEN: Soft. EXTREMITIES: No edema. He is severely deformed from his previous mental retardation. LABORATORY: White count 19,000, H&H 12 and 36, platelet count is 391, big left shift. PO2 64, pCO2 19, pH 7.49, on a rate of 10, 29% FiO2. Chest x-ray showed bilateral infiltrates. Sodium is 150, creatinine 1.64. IMPRESSION: 1. Respiratory failure. X-ray shows evidence of fluid overload. 2. Abdominal sepsis. 3. Hypertension. 4. Renal failure. PLAN: Continue broad-spectrum antibiotics. He is not weanable. Nutrition as per Surgery. IV fluids. We will follow. One-half hour critical care time.
[2018-05-01] MEDS ORDERED: Famotidine 40 MG/4 ML VIAL SLOW IVP SCH (09:00)
[2018-05-01 09:39] LABS: Magnesium 1.5 mg/dL (1.6-2.6); Phosphorus 4.3 mg/dL (2.3-4.7)
[2018-05-01] MEDS: Famotidine/PF 20 mg/2ml Vial SLOW IVP SCH ×2 (09:45→20:51)
[2018-05-01] MEDS: Sodium Chloride 0.45% 1,000 ML IV SCH ×2 (09:45→18:57)
[2018-05-01] MEDS: Polyethylene Glycol 3350 17 GM Packet PO SCH (09:48)
[2018-05-01] MEDS: Amiodarone 200 MG TAB PER TUBE SCH ×2 (09:50→20:51)
--- NOTE | 2018-05-01 18:47 | PRG ---
DATE OF SERVICE: 05/01/2018 SUBJECTIVE: Mr. Melgar is a 62-year-old man who is postoperative day #1, status post exploratory la parotomy, total colectomy with end ileostomy. The patient is sedated on mechanical ventilator suppor t. He opens his eyes to voice, moves all extremities. He is on no vasopressor or inotropic support. Urinary output has been adequate over the last 12 hours. OBJECTIVE: VITAL SIGNS: This morning includes blood pressure 100/66, pulse 103, respiratory rate is 12, tempera ture 99.1 degrees Fahrenheit, oxygen saturation is 96%. HEART: Reveals regular rate with sinus tachycardia. No murmurs or gallops auscultated. CHEST: Clear to auscultation bilaterally. Breathing regular and unlabored. ABDOMEN: Soft and nondistended. Incision is intact, clean. Ileostomy is viable. No output at the moment. Solomon-Gaona drain returns serous fluid. LABORATORY DATA: Today includes CBC with white blood cells, hemoglobin and hematocrit 12.6 and 36.6 respectively. Platelet count is . Differential counts as follows, 56% segmented neutroph ils, 27% bands, 4 lymphocytes and 13 monocytes. Metabolic profile, sodium 150, potassium 3.1, chlori de is 118, bicarbonate is 18, BUN is 41, creatinine is 1.64, glucose is 98, magnesium 1.5, phosphorus 4.3. IMPRESSION: 1. Postoperative day #1, status post exploratory laparotomy and total colectomy. 2. Acute kidney injury. 3. Acute hypokalemia. 4. Acute hypomagnesemia. PLAN: No further surgical intervention for this patient at this time. Medical management is deferred to Pulmonary and Critical Care whose service I greatly appreciate. The above findings and plan discussed with the patient's power of ip technology transactions attorney at bedside. She indicated understanding of the information given. I have answered her questions.
[2018-05-01] MEDS ORDERED: Potassium Chloride 20 MEQ in Premix Bag 1 BAG IVPB SCH (19:00)
[2018-05-01] MEDS ORDERED: Amiodarone HCl 150 MG, Admixture Fee 1 EACH in Dextrose 5% in Water 100 ML IVPB SCH (20:00)
[2018-05-01] MEDS: Amiodarone HCl 450 MG, Admixture Fee 1 EACH in Dextrose 5% in Water 250 ML IVPB SCH (20:09)
[2018-05-01] MEDS: Enoxaparin Sodium 40 MG/0.4 ML SYRINGE SC SCH (20:51)
[2018-05-02] MEDS: Insulin Regular 300 UNITS/3 ML VIAL SC PRN ×2 (00:19→15:32)
[2018-05-02] MEDS: Sodium Chloride 0.45% 1,000 ML IV SCH ×3 (00:25→12:15)
[2018-05-02] MEDS: Amiodarone HCl 450 MG, Admixture Fee 1 EACH in Dextrose 5% in Water 250 ML IVPB SCH ×2 (04:30→21:31)
[2018-05-02] MEDS: Metoclopramide HCl 10 MG/2 ML VIAL IVP SCH ×3 (05:41→21:30)
[2018-05-02] MEDS: Hydrocortisone Sod Succ/PF 100 mg/2 ml Vial IVP SCH ×3 (05:41→17:04)
[2018-05-02] MEDS: MEROPENEM 1 GM/50 ML 1 GM in Premix Bag 1 BAG IVPB SCH ×3 (05:41→21:30)
[2018-05-02 05:57] LABS: Anion Gap 14 mmol/L (10-20); BUN (Urea Nitrogen) 37 mg/dL (8.4-25.7); Calc. Creatinine Clearance 57 mL/min (70-130); Calcium 7.1 mg/dL (7.8-10.44); Carbon Dioxide 21 mmol/L (22-29); Chloride 113 mmol/L (98-107); Estimated GFR-MDRD 53; Glucose 108 mg/dL (70-105); Sodium 145 mmol/L (136-145)
[2018-05-02 06:01] LABS: Potassium 2.5 mmol/L (3.5-5.1)
[2018-05-02 06:11] LABS: Band 38 % (5-11); Hemoglobin 10.4 g/dL (14.0-18.0); Lymphocytes 13 % (21-51); MDiff Complete? YES; Mean Corpuscular HGB CONC 33.8 g/dL (32.0-36.0); Mean Corpuscular Volume 94.8 fL (78.0-98.0); Mean Platelet Volume 7.5 fL (7.4-10.4); Monocytes 2 % (0-10); Neutrophil 47 % (42-75); PLT Morphology Comment Appears Adequate; Platelet Count 320 thou/uL (130-400); RBC Distribution Width 14.4 % (11.5-14.5); Red Blood Cell (RBC) Count 3.26 mill/uL (4.70-6.10); White Blood Cell (WBC) Count 13.9 thou/uL (4.8-10.8)
[2018-05-02] MEDS ORDERED: Potassium Chloride 20 MEQ in Premix Bag 1 BAG IVPB SCH (07:00)
[2018-05-02] MEDS ORDERED: CCU Electrolyte Replacement 1 EACH FS SCH (08:00)
[2018-05-02] MEDS ORDERED: Potassium Chloride 20 MEQ TAB PO PRN (08:06)
[2018-05-02] MEDS ORDERED: Magnesium Oxide 400 MG TAB PO PRN ×2 (08:06)
[2018-05-02] MEDS ORDERED: Magnesium 2 GM/NS 0.9% 100 ML 2 GM in Premix Bag 1 BAG IVPB PRN (08:06)
[2018-05-02] MEDS ORDERED: Potassium Phosphate 12 MMOL in Sodium Chloride 0.9% 250 ML 250 ML IV PRN (08:06)
[2018-05-02] MEDS ORDERED: Potassium Chloride 40 MEQ in Sodium Chloride 0.9% 250 ML 250 ML IVPB PRN (08:06)
[2018-05-02] MEDS ORDERED: CCU ELECTROLYTE REPLACEMENT PROTOCOL FS PRN (08:06)
[2018-05-02] MEDS ORDERED: Potassium Phosphate 15 MMOL in Sodium Chloride 0.9% 250 ML 250 ML IV PRN (08:06)
--- NOTE | 2018-05-02 08:14 | PRG ---
DATE OF SERVICE: 05/02/2018 This morning he appears to be stable. He was started on amiodarone yesterday for a heart rate of 190 . PHYSICAL EXAMINATION: VITAL SIGNS: Blood pressure is 151/67, pulse 85, respiration rate 18, sats 100%. He is afebrile. M aximum temperature was 99. His I's and O's have been good. Input was 4102, output was 2750. CHEST: No wheezing, no crackles. CARDIAC: Normal S1, S2, no gallops. ABDOMEN: Soft. LABORATORY: Creatinine 1.38. White count 13,000, platelet count is normal. IMPRESSION: 1. Sepsis syndrome, abdominal. 2. Respiratory failure. 3. Mental retardation. PLAN: Continue meropenem and Lovenox. Nutrition, PT, and supportive care. Vent is being adjusted. One-half hour of critical care time. I will follow.
[2018-05-02 08:46] LABS: Magnesium 1.6 mg/dL (1.6-2.6); Phosphorus 2.7 mg/dL (2.3-4.7)
[2018-05-02] MEDS: Polyethylene Glycol 3350 17 GM Packet PO SCH (08:51)
[2018-05-02] MEDS: Amiodarone 200 MG TAB PER TUBE SCH ×2 (08:52→21:30)
[2018-05-02] MEDS: Famotidine/PF 20 mg/2ml Vial SLOW IVP SCH ×2 (08:52→21:30)
--- NOTE | 2018-05-02 08:58 | RAD ---
PORTABLE CHEST 1 VIEW: DATE: 05/02/18. TIME: 5:03 a.m. HISTORY: Respiratory failure. FINDINGS: There is mild interval improvement in the aeration of the right lung. The remainder of the exam is o therwise stable compared to yesterday. POS: OFF
[2018-05-02 16:49] LABS: Potassium 2.6 mmol/L (3.5-5.1)
[2018-05-02] MEDS: Potassium Chloride 40 MEQ in Premix Bag 1 BAG IVPB PRN ×2 (17:04→22:18)
[2018-05-02] MEDS: Enoxaparin Sodium 40 MG/0.4 ML SYRINGE SC SCH (21:30)
[2018-05-02 22:16] LABS: Potassium 3.1 mmol/L (3.5-5.1)
[2018-05-03] MEDS: Hydrocortisone Sod Succ/PF 100 mg/2 ml Vial IVP SCH ×4 (00:20→17:30)
[2018-05-03] MEDS: Sodium Chloride 0.45% 1,000 ML IV SCH ×3 (00:21→17:34)
[2018-05-03 04:54] LABS: Anion Gap 8 mmol/L (10-20); BUN (Urea Nitrogen) 30 mg/dL (8.4-25.7); Calc. Creatinine Clearance 95 mL/min (70-130); Calcium 7.2 mg/dL (7.8-10.44); Carbon Dioxide 23 mmol/L (22-29); Chloride 114 mmol/L (98-107); Estimated GFR-MDRD Greater than 90; Glucose 110 mg/dL (70-105); Potassium 3.4 mmol/L (3.5-5.1); Sodium 142 mmol/L (136-145)
[2018-05-03] MEDS: Potassium Chloride 40 MEQ in Premix Bag 1 BAG IVPB PRN (05:26)
[2018-05-03] MEDS: Metoclopramide HCl 10 MG/2 ML VIAL IVP SCH ×3 (05:27→21:52)
[2018-05-03] MEDS: MEROPENEM 1 GM/50 ML 1 GM in Premix Bag 1 BAG IVPB SCH ×3 (05:27→21:52)
[2018-05-03 05:40] LABS: Band 21 % (5-11); Hemoglobin 9.5 g/dL (14.0-18.0); MDiff Complete? YES; Mean Corpuscular HGB CONC 34.3 g/dL (32.0-36.0); Mean Corpuscular Hemoglobin 32.5 pg (27.0-31.0); Mean Corpuscular Volume 94.8 fL (78.0-98.0); Mean Platelet Volume 7.3 fL (7.4-10.4); Monocytes 4 % (0-10); Neutrophil 75 % (42-75); Platelet Count 295 thou/uL (130-400); RBC Distribution Width 14.5 % (11.5-14.5); Red Blood Cell (RBC) Count 2.91 mill/uL (4.70-6.10); White Blood Cell (WBC) Count 13.5 thou/uL (4.8-10.8)
[2018-05-03 07:31] LABS: pH, Arterial 7.49 (7.35-7.45)
[2018-05-03 07:32] LABS: Actual Bicarbonate (HCO3a) 20.4 mEq/L (22-28); Base Excess (BEa) -2.1 mEq/L (-2.0 to +3.0); CO2 Tension 27.5 mmHg (35.0-45.0); Carboxyhemoglobin (COHb) 0.4 gm% (0.0-3.0); Hemoglobin (Hb) 10.1 g/dL (14.0-18.0); O2 Tension (PaO2) 86.5 mmHg (> 80.0); Potassium - ABG Lab 4.3 mmol/L (3.70-5.30); Puncture Site L.R.
[2018-05-03 07:33] LABS: ALV-art Gradient 93.025 (0-20)
[2018-05-03 08:40] LABS: Magnesium 1.7 mg/dL (1.6-2.6); Phosphorus 1.9 mg/dL (2.3-4.7)
--- NOTE | 2018-05-03 08:44 | PRG ---
DATE OF SERVICE: 05/03/2018 This morning the patient is awake, alert, responsive. PHYSICAL EXAMINATION: VITAL SIGNS: Pulse 70, blood pressure 145/75, sats are 90%, respiration 17. His I's and O's have be en good, consistently ahead. Temperature 99. NEURO: Neurologically, he is mentally retarded. CHEST: Chest revealed decreased breath sounds, no wheezing. CARDIAC: Normal S1-S2. No gallops. ABDOMEN: Soft. No masses. LABORATORY: White count 13,000, H&H 9 and 27, platelet count 95. PO2 is 86, pCO2 27.49. Electrolyt es are normal. IMPRESSION: 1. Respiratory failure. 2. Abdominal sepsis. 3. Supraventricular tachycardia. PLAN: I discussed with the patient's guardian yesterday. The patient is a DNR. He is ready to be e xtubated. I would not be inclined to reintubate again unless he has some reversible component. One-half hour critical care time.
[2018-05-03] MEDS: Amiodarone 200 MG TAB PER TUBE SCH ×2 (08:48→21:29)
[2018-05-03] MEDS: Polyethylene Glycol 3350 17 GM Packet PO SCH (08:48)
[2018-05-03] MEDS: Famotidine/PF 20 mg/2ml Vial SLOW IVP SCH ×2 (08:48→21:51)
--- NOTE | 2018-05-03 09:41 | RAD ---
CHEST 1 VIEW: Date: 05/03/18 HISTORY: Dyspnea. Intubated. COMPARISON: 05/02/18. FINDINGS: Cardiac silhouette magnified by projection. Pulmonary vasculature more engorged than on the prior bautista dy with increasing bibasilar infiltrates and pleural fluid. Patient rotated rightward. Lines and tube s appear unchanged in position. Stomach remains distended with gas despite nasogastric tube overlying the stomach. No evidence of pneumothorax. IMPRESSION: Increasing pulmonary edema and pleural fluid. POS: [facility]
[2018-05-03] MEDS: Enoxaparin Sodium 40 MG/0.4 ML SYRINGE SC SCH (21:29)
[2018-05-04] MEDS: Hydrocortisone Sod Succ/PF 100 mg/2 ml Vial IVP SCH ×2 (00:54→05:45)
[2018-05-04] MEDS: Metoclopramide HCl 10 MG/2 ML VIAL IVP SCH ×3 (05:45→21:04)
[2018-05-04] MEDS: Sodium Chloride 0.45% 1,000 ML IV SCH ×3 (06:17→21:57)
[2018-05-04] MEDS: Amiodarone 200 MG TAB PER TUBE SCH ×3 (06:17→21:04)
[2018-05-04] MEDS: MEROPENEM 1 GM/50 ML 1 GM in Premix Bag 1 BAG IVPB SCH ×3 (06:17→21:54)
[2018-05-04 06:23] LABS: Anion Gap 5 mmol/L (10-20); BUN (Urea Nitrogen) 25 mg/dL (8.4-25.7); Calc. Creatinine Clearance 117 mL/min (70-130); Calcium 7.3 mg/dL (7.8-10.44); Carbon Dioxide 23 mmol/L (22-29); Chloride 115 mmol/L (98-107); Estimated GFR-MDRD Greater than 90; Glucose 116 mg/dL (70-105); Potassium 3.7 mmol/L (3.5-5.1); Sodium 139 mmol/L (136-145)
[2018-05-04 06:52] LABS: Band 12 % (5-11); Hemoglobin 9.9 g/dL (14.0-18.0); Lymphocytes 8 % (21-51); MDiff Complete? YES; Mean Corpuscular HGB CONC 33.8 g/dL (32.0-36.0); Mean Corpuscular Hemoglobin 32.6 pg (27.0-31.0); Mean Corpuscular Volume 96.6 fL (78.0-98.0); Mean Platelet Volume 7.7 fL (7.4-10.4); Monocytes 5 % (0-10); Neutrophil 75 % (42-75); Nucleated RBC 2 % (0); Platelet Count 291 thou/uL (130-400); RBC Distribution Width 14.4 % (11.5-14.5); Red Blood Cell (RBC) Count 3.04 mill/uL (4.70-6.10); White Blood Cell (WBC) Count 13.3 thou/uL (4.8-10.8)
[2018-05-04] MEDS: Famotidine/PF 20 mg/2ml Vial SLOW IVP SCH ×2 (09:37→21:04)
[2018-05-04] MEDS: Polyethylene Glycol 3350 17 GM Packet PO SCH (09:38)
--- NOTE | 2018-05-04 11:22 | PRG ---
DATE OF SERVICE: 05/04/2018 SUBJECTIVE: This morning, he is in no respiratory distress. He was extubated yesterday. OBJECTIVE: VITAL SIGNS: Pulse is 57, sats are 90% on room air, respirations 14, blood pressure 160\74_. His I's and O's are ahead_ and 1437 out. CHEST: Reveals no wheezing or crackles. CARDIAC: Normal S1 and S2. No gallops. ABDOMEN: Soft, no masses. He has been afebrile now for several days. IMPRESSION: 1. Abdominal sepsis, status post colectomy 2. Supraventricular tachycardia. 3. Mental retardation. PLAN: Continue antibiotics, nebulizer treatments, supportive care, and PT. Eventually placement. MTDD
[2018-05-04] MEDS ORDERED: Erythromycin 250 MG in Sodium Chloride 0.9% 250 ML 250 ML IVPB SCH (12:00)
--- NOTE | 2018-05-04 15:56 | PRG ---
DATE OF SERVICE: 05/04/2018 ATTENDING PHYSICIAN: Jose Rosa D.O. SUBJECTIVE: Mr. Melgar is a 62-year-old man who is postoperative day number 4 status post explorato ry laparotomy, total colectomy and ileostomy. He was subsequently extubated postoperatively. He now opens his eyes to voice and moves all extremities. He has remained afebrile. Ostomy is functioning normally. OBJECTIVE: VITAL SIGNS: Temperature 97.9, pulse 59, respirations 19, O2 sat 99% on 2 liters nasal cannula, bloo d pressure 125/74. CARDIOVASCULAR: Regular rate and rhythm. PULMONARY: Bilateral breath sounds clear. No respiratory distress. ABDOMEN: Soft, nondistended. Ileostomy, pink appearing. ALL drain with serosanguineous drainage. LABORATORY STUDIES: CBC, WBC 13.3, RBC 3.04, hemoglobin 9.9, hematocrit 29.3, platelets 291,000. Ch emistry, sodium 139, potassium 3.7, chloride 115, carbon dioxide 23, BUN 25, creatinine 0.67, glucose 116. ASSESSMENT: 1. Postoperative day number 4 status post exploratory laparotomy and total colectomy. 2. Ostomy viable and functioning. 3. White blood cell count stable at 13.3, down from 19.3. PLAN: 1. Continue tube feeds. 2. Wound Care following for abdominal dressing changes b.i.d. 3. Medical management per Pulmonary Critical Care Service. The patient was seen and examined with Dr. Rosa who agrees with plan.
[2018-05-04] MEDS: Enoxaparin Sodium 40 MG/0.4 ML SYRINGE SC SCH (21:03)
[2018-05-05] MEDS: MEROPENEM 1 GM/50 ML 1 GM in Premix Bag 1 BAG IVPB SCH ×3 (05:00→21:31)
[2018-05-05] MEDS: Metoclopramide HCl 10 MG/2 ML VIAL IVP SCH ×3 (05:00→21:31)
[2018-05-05] MEDS: Acetaminophen 1,000 MG in Premix Bag 1 BAG IVPB PRN ×2 (05:42→15:57)
[2018-05-05 05:55] LABS: ALT (SGPT) 108 U/L (8-55); AST (SGOT) 47 U/L (5-34); Albumin 1.8 g/dL (3.5-5.0); Alkaline Phosphatase 234 U/L (40-150); Anion Gap 11 mmol/L (10-20); BUN (Urea Nitrogen) 28 mg/dL (8.4-25.7); Bilirubin, Total 1.4 mg/dL (0.2-1.2); Calc. Creatinine Clearance 117 mL/min (70-130); Calcium 7.7 mg/dL (7.8-10.44); Carbon Dioxide 22 mmol/L (22-29); Chloride 111 mmol/L (98-107); Estimated GFR-MDRD Greater than 90; Globulin 1.9 g/dL (2.4-3.5); Glucose 94 mg/dL (70-105); Potassium 3.5 mmol/L (3.5-5.1); Protein, Total 3.7 g/dL (6.0-8.3); Sodium 140 mmol/L (136-145)
[2018-05-05 05:59] LABS: Hemoglobin 13.6 g/dL (14.0-18.0); Mean Corpuscular HGB CONC 33.7 g/dL (32.0-36.0); Mean Corpuscular Volume 94.8 fL (78.0-98.0); Mean Platelet Volume 7.5 fL (7.4-10.4); Platelet Count 442 thou/uL (130-400); RBC Distribution Width 14.9 % (11.5-14.5); Red Blood Cell (RBC) Count 4.27 mill/uL (4.70-6.10); White Blood Cell (WBC) Count 30.5 thou/uL (4.8-10.8)
[2018-05-05 06:08] LABS: Band 27 % (5-11); Lymphocytes 7 % (21-51); MDiff Complete? YES; Metamyelocyte 1 % (0-0); Monocytes 3 % (0-10); Neutrophil 61 % (42-75); Nucleated RBC 2 % (0); PLT Morphology Comment Appears Increased; Reactive Lymphocytes 1 % (0-10)
[2018-05-05] MEDS: Potassium Chloride 40 MEQ in Premix Bag 1 BAG IVPB PRN (08:13)
[2018-05-05] MEDS: Famotidine/PF 20 mg/2ml Vial SLOW IVP SCH ×2 (08:26→20:33)
[2018-05-05] MEDS: Dextrose 5% in Water 1,000 ML IV SCH (09:00)
[2018-05-05] MEDS ORDERED: Amiodarone In Dextrose 200 ML IVPB SCH (09:15)
[2018-05-05] MEDS ORDERED: Furosemide 20 MG/2 ML VIAL SLOW IVP SCH (09:15)
--- NOTE | 2018-05-05 09:31 | RAD ---
AP VIEW CHEST: Date: 05/05/18 HISTORY: Chest pain. Respiratory distress. FINDINGS: Comparison made to previous exam from 05/03/18. AP view of chest demonstrates endotracheal tube in position, distal tip in mid tracheal region. There is a nasogastric tube in place, distal tip difficult to visualize. There is a left subclavian central line, distal tip overlying the SVC/right atrial junction. A small right-sided pleural effusion is seen. Pulmonary vascular congestion seen. Radiographic appear ance of the chest is stable and unchanged. Right-sided chest tube appears to have been removed. IMPRESSION: Removal of right-sided chest tube, otherwise unchanged since the previous comparison exam. POS: [facility]
[2018-05-05] MEDS: Polyethylene Glycol 3350 17 GM Packet PO SCH (09:50)
[2018-05-05] MEDS ORDERED: ISOVUE-370 76%-LOCM 1 ML ONE (09:55)
[2018-05-05] MEDS: Micafungin 100 MG in Sodium Chloride 0.9% 100 ML IVPB SCH (09:57)
--- NOTE | 2018-05-05 10:30 | PRG ---
DATE OF SERVICE: 05/05/2018 SERVICE: Pulmonary Medicine. INTERVAL HISTORY: Patient is doing poorly from a respiratory standpoint. He is starting to have increasing grunting. Low grade fever is starting to show up. His white blood cell count is also up trending. He cannot provide additional elements of the history because of his static encephalopathy. Otherwise, there has been no interval change to his condition. PHYSICAL EXAMINATION: VITAL SIGNS: Afebrile with T-max of 99.8, pulse 94, blood pressure 96/62, respirations 21, saturation 98% on 2 liters nasal cannula. GENERAL: The patient is awake and alert. He is having some grunting with mild respiratory distress. HEENT: Normocephalic, atraumatic. Sclerae are white, conjunctivae pink. Oral mucosa is moist without lesions. LUNGS: Bilateral dependent crackles are present. No wheezing or rhonchi are appreciated. HEART: Tachycardic. Regular. ABDOMEN: Soft, nontender, nondistended. Bowel sounds are positive. MUSCULOSKELETAL: No cyanosis or clubbing. There are diffuse 2-3+ pitting throughout. GENITOURINARY: Renteria catheter in place. NEUROLOGIC: Grossly nonfocal. LABORATORY DATA: WBC 30.5, hemoglobin 13.6, platelets 442,000. Band count is up trending to 27%, lymphocyte count is 7%. INR 1.3. A pH 7.49, pCO2 27, pO2 86. AST 47, ALT 108 and up trending, alkaline phosphatase 234, also up trending. BUN 28, creatinine 0.67, chloride 111 and sodium 140. IMAGING DATA: Chest x-ray demonstrates low lung volumes. The right-sided pleural effusion is present. There is probably left-sided pleural parenchymal opacifications, though the low lung volumes and heart border obscure accurate evaluation there. Low lung volumes accentuate interstitial markings. There is a left subclavian central venous catheter that terminates in very good position. An enteric catheter courses below the level of the diaphragm and out of the field of view. ASSESSMENT: 1. Acute hypoxic respiratory failure. 2. Gross peritonitis, status post colectomy, and jejunostomy creation. 3. Severe sepsis. 4. Supraventricular tachycardia. 5. Mental retardation with static encephalopathy, DISCUSSION AND PLAN: We will continue supportive care. I will put him on D5 water at 50 mL per hour and introduce a couple of doses of Lasix if the patient remains fairly volume overloaded for this hospital stay. We will continue our empiric antibiotics. The chest x-ray did not demonstrate any obvious source of infection. I will add antifungal coverage. Pulmonary or Critical Care will continue to follow along. JANINA
[2018-05-05] MEDS: Amiodarone HCl 450 MG, Admixture Fee 1 EACH in Dextrose 5% in Water 250 ML IVPB SCH (10:33)
--- NOTE | 2018-05-05 14:31 | ULT ---
ABDOMIKNAL ULTRASOUND: Date: 05/05/18 HISTORY: Elevated liver enzymes. FINDINGS/IMPRESSION: Multiple longitudinal and transverse images of the abdomen obtained. Exam is nondiagnostic due to ext ensive bandaging. I cannot exclude the possibility of intraabdominal pathology. If there is concern f or abdominal or pelvic pathology, correlation with contrast enhanced CT of the abdomen and pelvis is recommended, if indicated. POS: AGLINA
--- NOTE | 2018-05-05 16:13 | CT ---
CT ABDOMEN AND PELVIS WITH CONTRAST: HISTORY: Elevated white blood cell count. History of peritonitis. Contrast CT images of the abdomen and pelvis is obtained from the dome of the diaphragm through the p ubic symphysis. IV contrast was given. Small to moderate bilateral pleural effusion seen. A small amount of free fluid seen in the peritoneal cavity. The liver and spleen are unremarkable. Th e gallbladder is unremarkable. There is extensive edematous and inflammatory changes seen throughout the peritoneal cavity. Dilated loops of small bowel. The patient has a significant amount of the colo n resected. An ileostomy site is seen in the right abdomen. No definite evidence of abscess seen. IMPRESSION: Extensive postsurgical changes with bilateral pleural effusions and bibasilar lung consolidation. Ryne e free intraperitoneal fluid is seen. POS: GALINAH
[2018-05-05] MEDS: Enoxaparin Sodium 40 MG/0.4 ML SYRINGE SC SCH (20:33)
--- NOTE | 2018-05-05 22:12 | PRG ---
DATE OF SERVICE: 05/05/2018 SUBJECTIVE: This is a 62-year-old male that the surgical team is following in consultation, status post redo exploratory laparotomy and ileostomy on 2017. Overnight, the patient's nurse reports high residuals and tube feeds have been held. There appears to be a dark gastric content from his NG tube with reduced output from his ostomy. He had a low grade fever this a.m. The patient remains nonverbal, but does move all extremities. OBJECTIVE: VITAL SIGNS: Temperature 99.8, pulse 92, blood pressure 120/73, respirations 17. GENERAL: Resting in bed, in no acute distress. LUNGS: Symmetric chest rise. Poor inspiratory effort. Lungs are clear to auscultation bilaterally. CARDIOVASCULAR: Regular rate and rhythm. GASTROINTESTINAL: Abdomen is soft, does not appear to be overly tender. There is no guarding or rigidity. ALL drains have been removed. Ostomy is pink and viable with liquid stool, but no gas. Colostomy site appears to be healing well with some granulated tissue and wet to dry dressings. Multiple puncture wounds with some serosanguineous drainage. LABORATORY DATA: WBC 30.5, hemoglobin 13.6, hematocrit 40.4, platelet count 442 , 27% bandemia. Sodium 140, potassium 3.5, chloride 111, carbon dioxide 22, BUN 28, creatinine 0.67, total bilirubin 1.4, AST 47, ALT 108, alkaline phosphatase 234. ASSESSMENT: 1. Postop day #5 status post redo exploratory laparotomy and colectomy with ileostomy. 2. Leukocytosis with bandemia. 3. Possible ileus. 4. Elevated t.bili and liver enzymes. PLAN: Per discussion with nursing at bedside after a.m. rounds, the patient's ostomy did start putting out gas and more stool. May resume tube feeds at low dose/trickle rate once right upper quadrant ultrasound obtained. Repeat CT of the abdomen and pelvis per Critical Care Medicine. The patient has had one wound just to the left of the midline with what appeared to be possible purulent drainage which was cultured. Critical Care Medicine has expanded antibiotic coverage to include micafungin. Otherwise, supportive care as ordered. We will continue to follow ostomy output. If patient does developed ileus or cannot tolerate tube feeds, we will need to start TPN. The patient was discussed with Pulmonary Critical Care Medicine and Dr. Rosa. JANINA
[2018-05-06] MEDS: Amiodarone HCl 450 MG, Admixture Fee 1 EACH in Dextrose 5% in Water 250 ML IVPB SCH (00:24)
[2018-05-06 03:39] LABS: Magnesium 1.6 mg/dL (1.6-2.6); Phosphorus 2.2 mg/dL (2.3-4.7)
[2018-05-06 04:09] LABS: Band 35 % (5-11); Eosinophils 1 % (0-10); Hemoglobin 10.6 g/dL (14.0-18.0); Lymphocytes 8 % (21-51); MDiff Complete? YES; Mean Corpuscular HGB CONC 32.9 g/dL (32.0-36.0); Mean Corpuscular Hemoglobin 31.4 pg (27.0-31.0); Mean Corpuscular Volume 95.2 fL (78.0-98.0); Mean Platelet Volume 7.8 fL (7.4-10.4); Monocytes 3 % (0-10); Neutrophil 53 % (42-75); Nucleated RBC 6 % (0); PLT Morphology Comment Appears Adequate; Platelet Count 272 thou/uL (130-400); Red Blood Cell (RBC) Count 3.38 mill/uL (4.70-6.10); White Blood Cell (WBC) Count 22.1 thou/uL (4.8-10.8)
[2018-05-06] MEDS: Dextrose 5% in Water 1,000 ML IV SCH (06:01)
[2018-05-06] MEDS: MEROPENEM 1 GM/50 ML 1 GM in Premix Bag 1 BAG IVPB SCH ×3 (06:01→21:23)
[2018-05-06] MEDS: Metoclopramide HCl 10 MG/2 ML VIAL IVP SCH ×3 (06:01→21:23)
[2018-05-06] MEDS: Amiodarone 200 MG TAB PER TUBE SCH (07:45)
[2018-05-06] MEDS: Famotidine/PF 20 mg/2ml Vial SLOW IVP SCH (08:54)
[2018-05-06] MEDS: Potassium Phosphate 9 MMOL in Sodium Chloride 0.9% 100 ML IVPB PRN (08:54)
[2018-05-06] MEDS: Furosemide 20 MG/2 ML VIAL SLOW IVP SCH (08:54)
[2018-05-06] MEDS: Micafungin 100 MG in Sodium Chloride 0.9% 100 ML IVPB SCH (09:01)
[2018-05-06] MEDS ORDERED: Magnesium Sulfate 2 GM in Sodium Chloride 0.9% 250 ML 250 ML IVPB SCH (10:00)
--- NOTE | 2018-05-06 10:07 | PRG ---
DATE OF SERVICE: 05/06/2018 SERVICE: Pulmonary Medicine. INTERVAL HISTORY: The patient is doing fine from a respiratory standpoint. He is breathing comforta nel today. Whatever thing had him looking so sick yesterday has resolved. This was with a combinati on of micafungin, and a little bit of Lasix. He cannot provide any additional elements of the histor y, because of static encephalopathy. PHYSICAL EXAMINATION: VITAL SIGNS: Afebrile, pulse 94, blood pressure 127/59, respirations 24, saturation 96% on 2 liters nasal cannula. GENERAL: The patient is awake and alert, in no apparent distress. LUNGS: Decent air entry. Crackles are still present. No prolonged expiratory phase or wheezing. HEART: Normal rate, regular. ABDOMEN: Soft, nontender, nondistended. Bowel sounds are positive. MUSCULOSKELETAL: No cyanosis or clubbing. There is diffuse 2-3+ pitting throughout. GENITOURINARY: No Renteria. NEUROLOGIC: Grossly nonfocal. LABORATORY DATA: WBC down trending to 22.1, hemoglobin 10.6, platelets 272,000. Band count is incre asing to 35%, but again appears less toxic today. Phosphorus 2.2, magnesium 1.6. ASSESSMENT: 1. Acute hypoxic respiratory failure, improving. 2. Gross peritonitis, status post colectomy and jejunostomy creation. 3. Supraventricular tachycardia, intermittent. 4. Mental retardation with static encephalopathy, DISCUSSION AND PLAN: I will continue to diurese him down to euvolemia. I will repeat laboratories a t this time, as well as in the morning. We will continue our antibiotics directed a gram negative or ganisms, and anaerobic organisms. I empirically added micafungin yesterday. At this point, he can b e transitioned to the intermediate care unit. Pulmonary and Critical Care will continue to follow zackary pachecog.
[2018-05-06 10:15] LABS: ALT (SGPT) 83 U/L (8-55); AST (SGOT) 37 U/L (5-34); Albumin 2.1 g/dL (3.5-5.0); Alkaline Phosphatase 178 U/L (40-150); Anion Gap 11 mmol/L (10-20); BUN (Urea Nitrogen) 23 mg/dL (8.4-25.7); Bilirubin, Total 1.1 mg/dL (0.2-1.2); Calc. Creatinine Clearance 107 mL/min (70-130); Calcium 7.8 mg/dL (7.8-10.44); Carbon Dioxide 25 mmol/L (22-29); Chloride 106 mmol/L (98-107); Estimated GFR-MDRD Greater than 90; Globulin 2.4 g/dL (2.4-3.5); Glucose 114 mg/dL (70-105); Potassium 3.6 mmol/L (3.5-5.1); Protein, Total 4.5 g/dL (6.0-8.3); Sodium 138 mmol/L (136-145)
[2018-05-06] MEDS ORDERED: Magnesium 2 GM/NS 0.9% 100 ML 2 GM in Premix Bag 1 BAG IVPB SCH (10:15)
[2018-05-06] MEDS ORDERED: Magnesium 2 GM/50 ML 2 GM in Premix Bag 1 BAG IVPB SCH (10:15)
[2018-05-06] MEDS ORDERED: Pantoprazole 40 MG VIAL IVP SCH (11:15)
[2018-05-06] MEDS ORDERED: Pharmacy to MANAGE TPN ELECTROLYTES IVPB PRN (14:17)
[2018-05-06] MEDS ORDERED: Furosemide 20 MG/2 ML VIAL SLOW IVP SCH (15:00)
--- NOTE | 2018-05-06 16:22 | PRG ---
DATE OF SERVICE: 05/06/2018 SUBJECTIVE: This is a 62-year-old male that our team is following in consultation status post redo e xploratory laparotomy and ileostomy on 04/30/2018. The patient continued to have NG output of greate r than 1500 mL past 24 hours. Ostomy function has improved. He remains nonverbal. OBJECTIVE: VITAL SIGNS: Temperature 98, pulse 87, respirations 22, O2 sat 98% on room air, blood pressure 138/7 5. GENERAL: Resting in bed, in no acute distress. PULMONARY: Normal work of breathing. Symmetric rise. CARDIOVASCULAR: Borderline tachycardic. No obvious murmurs, rubs or gallops. GASTROINTESTINAL: Abdomen is soft. There is no guarding or rigidity. Ostomy is pink and viable wit h liquid stool in the bag. NG tube output with fresh appearing blood, 1550 mL for 24 hours. Ostomy output, 165 mL past 24 hours. LABORATORY FINDINGS: WBC 22.1, hemoglobin 10.6, hematocrit 32.2, platelet count 272,000. Sodium 138 , potassium 3.6, chloride 106, carbon dioxide 25, BUN 23, creatinine 0.73, glucose 114, total bilirub in 1.1, AST 37, ALT 83, alkaline phosphatase 178. ASSESSMENT: 1. Postoperative day 6 status post redo exploratory laparotomy and colectomy with ileostomy. 2. Leukocytosis, improved. 3. Ileus, improved. 4. Elevated bilirubin and liver enzymes, improving. 5. Possible gastrointestinal bleed. 6. Worsening anemia. PLAN: Switch from Pepcid to Protonix b.i.d. GI consult. Continue to hold tube feeds at this time. Initiate TPN. I have discussed the case with Dr. Hernandez. Supportive care and medical management p Critical Care Medicine team. The patient was discussed with Dr. Rosa.
--- NOTE | 2018-05-06 20:33 | CON ---
DATE OF CONSULTATION: 05/06/2018 CHIEF COMPLAINT: Dark material from NG tube. HISTORY OF PRESENT ILLNESS: Mr. Melgar is a 62-year-old man who is a [facility] resident after brain injury as an . He underwent laparoscopic sigmoid colectomy and colostomy on 2017 for intractable constipation. He developed peritonitis following that and subsequently underwen t full colectomy and ileostomy on 04/30/2018. Necrotic rectal stump was removed. He had multiple in tra-abdominal abscesses and adhesions noted at the time of the followup surgery. Since then, he has tolerated the tube feeds poorly through his NG tube. Today, he was noted to have some dark material from the NG tube, which was concerning for blood. GI was consulted to evaluate that. He has had bro wn stool from his ileostomy bag. 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 Profound intellectual disability. PAST SURGICAL HISTORY: Recent colon resection. FAMILY HISTORY: Unobtainable. SOCIAL HISTORY: He is a [facility] resident. Presumably no alcohol, tobacco or drugs. He reportedly has fed himself with his left hand a pureed diet and has not required tube feeds in the ast. ALLERGIES: BACTRIM. MEDICATIONS PRIOR TO ADMISSION: Omeprazole, Crestor, simethicone and laxatives. CURRENT INPATIENT MEDICATIONS: Amiodarone, enoxaparin, famotidine, furosemide, magnesium, meropenem, metoclopramide, micafungin, pantoprazole 40 mg IV q.12 hours. REVIEW OF SYSTEMS: Unobtainable. PHYSICAL EXAMINATION: VITAL SIGNS: Temperature 99.3, blood pressure 113/68, pulse 91. GENERAL: He is in no acute distress. He is restrained with his left hand. HEENT: He has an NG tube in place. There is some dark bilious or possibly some slight coffee ground material in his tubing now. LUNGS: Clear to auscultation bilaterally. HEART: Regular rate and rhythm. ABDOMEN: Soft. Bowel sounds are present. He has a dressed wound. He has had brown stool in the co lostomy. EXTREMITIES: 1+ pitting upper and lower extremity edema. LABORATORY DATA: White blood cell count 22.1, hemoglobin 10.6, platelets 272,000. Creatinine 0.73, bilirubin 1.1, AST 37, ALT 83, alkaline phosphatase 178, albumin 2.1. IMPRESSION: 1. Possible upper gastrointestinal bleed with some dark bilious versus coffee ground material from t he NG tube. There does not appear to be any brisk bleeding at this point. He has brown stool in the colostomy. His hemoglobin is stable at 10.6. He has not tolerated his tube feeds at this point sta tus post extensive abdominal surgeries and adhesions and abscesses. 2. Protein calorie malnutrition. RECOMMENDATIONS: 1. Change from Pepcid to pantoprazole 40 mg twice daily. 2. We will monitor clinically for further significant bleeding. Endoscopy can be considered If he f ails to respond to acid suppression alone. He has had previously required BiPAP and is now on room a ir and appears to be breathing more easily. 3. Follow trend of the hemoglobin.
[2018-05-06] MEDS: Enoxaparin Sodium 40 MG/0.4 ML SYRINGE SC SCH (20:57)
[2018-05-06] MEDS: Pantoprazole 40 MG VIAL IVP SCH (20:58)
[2018-05-06] MEDS ORDERED: Multivitamins, Adult 10 ML, Multitrace-5 5 ML in D50W-AA 8.5% with Lytes 2,000 ML IV SCH (22:00)
[2018-05-07] MEDS: Dextrose 5% in Water 1,000 ML IV SCH ×2 (01:30→21:47)
[2018-05-07 05:47] LABS: Band 26 % (5-11); Hemoglobin 8.1 g/dL (14.0-18.0); Lymphocytes 3 % (21-51); MDiff Complete? YES; Mean Corpuscular HGB CONC 33.9 g/dL (32.0-36.0); Mean Corpuscular Volume 94.5 fL (78.0-98.0); Mean Platelet Volume 7.5 fL (7.4-10.4); Monocytes 1 % (0-10); Myelocyte 2 % (0-0); Neutrophil 67 % (42-75); Nucleated RBC 1 % (0); Platelet Count 302 thou/uL (130-400); RBC Distribution Width 14.8 % (11.5-14.5); Red Blood Cell (RBC) Count 2.53 mill/uL (4.70-6.10); White Blood Cell (WBC) Count 21.9 thou/uL (4.8-10.8)
[2018-05-07 06:00] LABS: ALT (SGPT) 60 U/L (8-55); AST (SGOT) 32 U/L (5-34); Albumin 1.8 g/dL (3.5-5.0); Alkaline Phosphatase 146 U/L (40-150); Anion Gap 7 mmol/L (10-20); BUN (Urea Nitrogen) 21 mg/dL (8.4-25.7); Bilirubin, Total 0.8 mg/dL (0.2-1.2); Calc. Creatinine Clearance 115 mL/min (70-130); Calcium 7.4 mg/dL (7.8-10.44); Carbon Dioxide 25 mmol/L (22-29); Chloride 106 mmol/L (98-107); Estimated GFR-MDRD Greater than 90; Globulin 2.3 g/dL (2.4-3.5); Glucose 108 mg/dL (70-105); Magnesium 1.7 mg/dL (1.6-2.6); Phosphorus 2.7 mg/dL (2.3-4.7); Potassium 3.3 mmol/L (3.5-5.1); Protein, Total 4.1 g/dL (6.0-8.3); Sodium 135 mmol/L (136-145)
[2018-05-07] MEDS: MEROPENEM 1 GM/50 ML 1 GM in Premix Bag 1 BAG IVPB SCH ×3 (06:27→21:47)
[2018-05-07] MEDS: Metoclopramide HCl 10 MG/2 ML VIAL IVP SCH ×3 (06:27→21:48)
[2018-05-07] MEDS: Insulin Regular 300 UNITS/3 ML VIAL SC PRN (06:30)
--- NOTE | 2018-05-07 10:02 | PRG ---
DATE OF SERVICE: 05/07/2018. SUBJECTIVE: Mr. Melgar has primarily bilious return from his NG tube. There is some dark material with it. He is having his wound stress today. OBJECTIVE: VITAL SIGNS: Temperature 97.4, pulse 62, blood pressure 130/55. GENERAL: He is in no acute distress. LUNGS: Clear to auscultation bilaterally. HEART: Regular rate and rhythm. ABDOMEN: Soft and nondistended. His open wounds are being dressed. EXTREMITIES: A 1+ pitting edema in upper and lower extremities. IMPRESSION: 1. Gastrointestinal bleed. He has coffee-ground material from the NG tube yesterday with more bilio us return today. His hemoglobin did decrease from baseline of 10-8.1 today. No bloody output from t he ostomy. He was changed from prophylactic H2 lizbeth yesterday to proton pump inhibitor. 2. Status post colectomy and ileostomy with adhesions and intra-abdominal abscesses. He is receivin g TPN for nutritional support. Albumin is 1.8 today with some anasarca. PLAN: 1. We will continue pantoprazole IV. Endoscopy is not expected to knife changer at this time. 2. He is receiving TPN per the General Surgery Service. 3. We will recheck his hemoglobin tomorrow.
[2018-05-07] MEDS: Pantoprazole 40 MG VIAL IVP SCH ×2 (10:14→20:49)
[2018-05-07] MEDS: Furosemide 20 MG/2 ML VIAL SLOW IVP SCH (10:14)
[2018-05-07] MEDS: Micafungin 100 MG in Sodium Chloride 0.9% 100 ML IVPB SCH (10:15)
[2018-05-07 10:35] LABS: INR-International Normal Ratio 1.3; PTT 38.4 SEC (22.9-36.1); Prothrombin Time 15.9 SEC (12.0-14.7)
--- NOTE | 2018-05-07 11:43 | PRG ---
DATE OF SERVICE: 05/07/2018 SUBJECTIVE: Mr. Melgar is a 62-year-old man who is postoperative day #7 status post total colectomy with ileostomy. The patient has been ventilator liberated now for the last 72 hours. He is current ly on bowel rest on TPN due to large residual when enteral nutritional supplementation was given last week. Ileostomy output has improved. There is a marked decrease in the nasogastric tube put over t he last 24 hours. OBJECTIVE: VITAL SIGNS: Currently, includes blood pressure 130/55, pulse 55, respiratory rate is 18, temperatur e 96.7 degrees Fahrenheit, oxygen saturation 100% on room air. ABDOMEN: Soft and less distended today. Incision is intact, clean, and dry. There is serous draina ge from the previous ALL site. The previous colostomy site wound is clean. The ileostomy is viable w ith liquid stool and gas. LABORATORY DATA: Today includes a CBC with decreasing white blood cell count at 21,900, hemoglobin a nd hematocrit are now stable at 8.1 and 23.9 respectively, platelet count is 302,000. Differential c ounts as follows, 67% segmented neutrophils, 26% bands, 3 lymphocytes, and 1 monocyte. Metabolic pro file: Sodium 135, potassium 3.3, chloride is 106, bicarbonate is 25, BUN 21, creatinine 0.68, glucos e is 108. Magnesium is 1.7, phosphorus is 2.7. IMPRESSION: 1. Postop day #7 status post total colectomy with ileostomy. 2. Acute hypokalemia. 3. Acute hypomagnesemia. 4. Acute hypophosphatemia. PLAN: 1. Correct abnormal electrolytes. 2. Resume enteral nutritional supplementation. 3. We will discontinue TPN after current bag infuses. 4. Continue with local wound care to the old colostomy site.
--- NOTE | 2018-05-07 13:10 | PRG ---
DATE OF SERVICE: 05/07/2018 SUBJECTIVE: This morning, he is awake, alert, and responsive. He is not tolerating any feedings. We restart him back on his TPN and IV amiodarone. OBJECTIVE: VITAL SIGNS: Sats are 90% on room air, temperature 97, pulse 62, respirations 20, blood pressure 130/50. CHEST: Decreased breath sounds, no wheezing. CARDIAC: Normal S1 and S2. No gallops. ABDOMEN: Soft, no masses. LABORATORY DATA: White count 21,000, H and H is 8 and 23, platelet count wnl_. Electrolytes are normal. IMPRESSION: 1. Status post colectomy. 2. Gastrointestinal bleed. 3. Mental retardation. PLAN: Pulmonary and Critical Care will follow while in the MICU. TPN, supportive care. MTDD
[2018-05-07] MEDS: Potassium Chloride 20 MEQ in Premix Bag 1 BAG IVPB SCH ×2 (14:23→17:31)
[2018-05-07] MEDS: Enoxaparin Sodium 40 MG/0.4 ML SYRINGE SC SCH (20:49)
[2018-05-08] MEDS: Metoclopramide HCl 10 MG/2 ML VIAL IVP SCH ×3 (05:34→21:25)
[2018-05-08] MEDS: MEROPENEM 1 GM/50 ML 1 GM in Premix Bag 1 BAG IVPB SCH ×3 (05:34→21:25)
[2018-05-08 06:32] LABS: ALT (SGPT) 59 U/L (8-55); AST (SGOT) 48 U/L (5-34); Albumin 1.8 g/dL (3.5-5.0); Alkaline Phosphatase 265 U/L (40-150); Anion Gap 8 mmol/L (10-20); BUN (Urea Nitrogen) 23 mg/dL (8.4-25.7); Bilirubin, Total 0.9 mg/dL (0.2-1.2); Calc. Creatinine Clearance 124 mL/min (70-130); Calcium 7.3 mg/dL (7.8-10.44); Carbon Dioxide 25 mmol/L (22-29); Chloride 106 mmol/L (98-107); Estimated GFR-MDRD Greater than 90; Globulin 2.6 g/dL (2.4-3.5); Glucose 82 mg/dL (70-105); Magnesium 1.6 mg/dL (1.6-2.6); Potassium 3.8 mmol/L (3.5-5.1); Protein, Total 4.4 g/dL (6.0-8.3); Sodium 135 mmol/L (136-145)
[2018-05-08 07:00] LABS: Band 20 % (5-11); Hemoglobin 9.7 g/dL (14.0-18.0); MDiff Complete? YES; Mean Corpuscular HGB CONC 32.8 g/dL (32.0-36.0); Mean Corpuscular Hemoglobin 31.2 pg (27.0-31.0); Mean Corpuscular Volume 94.8 fL (78.0-98.0); Mean Platelet Volume 7.7 fL (7.4-10.4); Monocytes 5 % (0-10); Neutrophil 75 % (42-75); Platelet Count 291 thou/uL (130-400); RBC Distribution Width 15.2 % (11.5-14.5); Red Blood Cell (RBC) Count 3.11 mill/uL (4.70-6.10); White Blood Cell (WBC) Count 22.1 thou/uL (4.8-10.8)
[2018-05-08] MEDS: Furosemide 20 MG/2 ML VIAL SLOW IVP SCH (09:18)
[2018-05-08] MEDS: Pantoprazole 40 MG VIAL IVP SCH ×2 (09:18→20:47)
[2018-05-08] MEDS: Micafungin 100 MG in Sodium Chloride 0.9% 100 ML IVPB SCH (10:50)
--- NOTE | 2018-05-08 16:36 | PRG ---
DATE OF SERVICE: 05/08/2018 SUBJECTIVE: Mr. Melgar is awake and alert. He is postoperative day #8 status post total colectomy with ileostomy. He is tolerating tube feeds and having adequate stool output by ileostomy. Urinary output is also adequate. OBJECTIVE: VITAL SIGNS: Today includes blood pressure 116/61, pulse 85, respiratory rate is 22, temperature 98. 4 degrees Fahrenheit, oxygen saturation 96% on room air. HEENT: Reveals normocephalic and atraumatic. HEART: Reveals regular rate and rhythm, no murmurs or gallops auscultated. CHEST: Lungs clear to auscultation bilaterally. Breathing is regular and unlabored. ABDOMEN: Soft and obese. Incision is intact, clean, and dry. Ileostomy is viable and functional wi th stool and gas. Previous colostomy site is clean. LABORATORY DATA: Laboratory findings today includes CBC with 22,100 white blood cells, hemoglobin an d hematocrit 9.7 and 29.5 respectively. Platelet count is 291,000. Metabolic profile: Sodium 135, potassium 3.8, chloride is 106, bicarbonate is 25, BUN 23, creatinine 0.63, glucose is 153, magnesium 1.6 and phosphorus is 2.0. IMPRESSION: 1. Postop day #8 status post total colectomy with ileostomy. 2. Resolving adynamic ileus. PLAN: 1. Increase tube feeds to goal. 2. Activity, as tolerated. 3. Continue with local wound care to the previous colostomy site.
[2018-05-08] MEDS: Dextrose 5% in Water 1,000 ML IV SCH ×2 (17:02→20:48)
[2018-05-08] MEDS: Enoxaparin Sodium 40 MG/0.4 ML SYRINGE SC SCH (20:46)
[2018-05-09] MEDS: MEROPENEM 1 GM/50 ML 1 GM in Premix Bag 1 BAG IVPB SCH ×3 (05:19→21:08)
[2018-05-09] MEDS: Metoclopramide HCl 10 MG/2 ML VIAL IVP SCH ×3 (05:19→21:09)
[2018-05-09 05:51] LABS: ALT (SGPT) 57 U/L (8-55); AST (SGOT) 44 U/L (5-34); Albumin 1.8 g/dL (3.5-5.0); Alkaline Phosphatase 257 U/L (40-150); Anion Gap 10 mmol/L (10-20); BUN (Urea Nitrogen) 20 mg/dL (8.4-25.7); Bilirubin, Total 0.8 mg/dL (0.2-1.2); Calc. Creatinine Clearance 128 mL/min (70-130); Carbon Dioxide 20 mmol/L (22-29); Chloride 104 mmol/L (98-107); Estimated GFR-MDRD Greater than 90; Globulin 2.7 g/dL (2.4-3.5); Glucose 87 mg/dL (70-105); Magnesium 1.5 mg/dL (1.6-2.6); Potassium 3.8 mmol/L (3.5-5.1); Protein, Total 4.5 g/dL (6.0-8.3); Sodium 130 mmol/L (136-145)
[2018-05-09 05:58] LABS: Phosphorus 1.6 mg/dL (2.3-4.7)
[2018-05-09 06:07] LABS: Band 11 % (5-11); Eosinophils 4 % (0-10); Hemoglobin 10.5 g/dL (14.0-18.0); Lymphocytes 2 % (21-51); MDiff Complete? YES; Mean Corpuscular HGB CONC 33.7 g/dL (32.0-36.0); Mean Corpuscular Hemoglobin 31.9 pg (27.0-31.0); Mean Corpuscular Volume 94.9 fL (78.0-98.0); Mean Platelet Volume 7.4 fL (7.4-10.4); Metamyelocyte 1 % (0-0); Monocytes 5 % (0-10); Neutrophil 77 % (42-75); Platelet Count 256 thou/uL (130-400); RBC Distribution Width 15.1 % (11.5-14.5); Red Blood Cell (RBC) Count 3.27 mill/uL (4.70-6.10); White Blood Cell (WBC) Count 17.9 thou/uL (4.8-10.8)
[2018-05-09] MEDS: Potassium Phosphate 9 MMOL in Sodium Chloride 0.9% 100 ML IVPB PRN (07:10)
[2018-05-09] MEDS ORDERED: Potassium Phosphate 30 MMOL in Sodium Chloride 0.9% 500 ML IVPB SCH (08:15)
[2018-05-09] MEDS: Pantoprazole 40 MG VIAL IVP SCH ×2 (08:54→21:08)
--- NOTE | 2018-05-09 08:58 | PRG ---
DATE OF SERVICE: 05/09/2018 This morning he is awake, alert, slightly more responsive. Obviously, he has no communication becaus e of his mental retardation. PHYSICAL EXAMINATION: VITAL SIGNS: Temperature 97, pulse 75, sats 100% on room air, blood pressure 108/56. CHEST: No wheezing. CARDIAC: Normal S1-S2. No gallops. ABDOMEN: Without masses. LABORATORY: Liver function is decreasing. His H&H is stable at 10 and 30. White count 17,000. IMPRESSION: 1. Abdominal sepsis. 2. Respiratory failure. 3. Mental retardation. PLAN: Continue supportive care, TPN switched over to enteral feedings. Hopefully, eventually placem ent.
--- NOTE | 2018-05-09 09:42 | PRG ---
DATE OF SERVICE: 05/08/2018 SUBJECTIVE: This is a 62-year-old gentleman, status post multiple laps_ peritonitis. He is doing well. OBJECTIVE: VITAL SIGNS: His maximum temperature was 98, pulse 85, sats 96%, blood pressure 110/60. CHEST: No wheezing. CARDIAC: Normal S1 and S2. No gallops. ABDOMEN: Soft, no masses. LABORATORY DATA: His white count is 22,000, H and H 9 and 27, platelet count is normal. Electrolytes are normal. Liver function is improved. IMPRESSION: 1. Abdominal sepsis. 2. Supraventricular tachycardia. 3. Ileus. 4. Nausea and vomiting. PLAN: At this stage, continue meropenem. PT and supportive care. Follow in the MICU. JOAND
--- NOTE | 2018-05-09 09:47 | PRG ---
DATE OF SERVICE: 05/08/2018 SUBJECTIVE: Mr. Melgar is still in the intermediate care unit. I have talked to his nurse. She no elsie that he has not had any melena or hematemesis. In the past 24 hours, his NG tube was clamped and they have been trying on tube feeds again. Mr. Melgar is noncommunicative with his severe mental i mpairment. He does smile though and when asked if he has any pain, he is equivocal in response and s eems to shake his head no. He really cannot communicate any further than that at this time. PHYSICAL EXAMINATION: VITAL SIGNS: Temperature is 97.2, pulse 73, blood pressure 149/58. LUNGS: Clear. HEART: Regular rate and rhythm without clicks, rubs, or murmurs. ABDOMEN: Nontender without any palpable hepatosplenomegaly. Slightly protuberant. Bowel sounds are quiescent. LABORATORY STUDIES: White count 22,000, hemoglobin 9.7, platelet count 291, bands 20%. Sodium 135, potassium 3.8, BUN and creatinine 23 and 0.63. AST and ALT are 48 and 59, alkaline phosphatase 265. Albumin is 1.8, protein 4.4. IMAGING: Last CAT scan was on 05/05/2018. There was extensive edematous and inflammatory change thr oughout the peritoneal cavity and dilated loops of small bowel, ileostomy. ASSESSMENT: 1. Severe ileus, postop day 9, total colectomy, ileostomy. 2. Malnutrition. 3. Drop in hemoglobin from 10.6 on the 19th to 8.1 on to 8.7 today. No transfusions. There damon ve been no signs of active bleeding with NG tube return bilious and his ileostomy output clear. 4. His last CAT scan did show some inflammatory changes, edema in the abdomen. 5. Leukocytosis and bandemia. Cannot rule out any type of peritoneal infection at this time. The p atient seems to be afebrile, stable. RECOMMENDATIONS: 1. If the patient's intake via Dobbhoff tube does not increase soon, I would institute some TPN as a n adjunctive nutrition. 2. At this time, there were no signs of bleeding. I see no role for endoscopic intervention. We wi ll follow from this. If I can be of further assistance in patient's care, please do not hesitate to contact me.
--- NOTE | 2018-05-09 17:35 | PRG ---
DATE OF SERVICE: 05/09/2018 SUBJECTIVE: Ms. Melgar is awake this morning. He tolerates tube feeds at goal. OBJECTIVE: VITAL SIGNS: Includes blood pressure 108/56, pulse 75, respirations 17, temperature is 97.8 degrees Fahrenheit, oxygen saturation 100% on room air. HEART: Reveals regular rate and rhythm, no murmurs or gallops auscultated. LUNGS: Clear to auscultation bilaterally. Breathing is regular and unlabored. ABDOMEN: Soft and moderately distended. Incision is intact. There is serous drainage from the inci sional wound. There was also serous drainage from previous colostomy site. Otherwise, the wound is clean. Ileostomy is viable and functional with liquid stool and gas. LABORATORY DATA: Laboratory findings today includes CBC with decreasing white blood cell count at 17 ,900, hemoglobin and hematocrit stable at 10.5 and 31.1 respectively. Platelet count is 256,000. Me tabolic profile: Sodium 130, potassium 3.8, chloride is 104, bicarbonate is 20, BUN is 20, creatinin e 0.61, glucose is 87, phosphorus is 1.6, magnesium is 1.5. IMPRESSION: 1. Postoperative day #9 status post total colectomy with ileostomy. 2. Resolved adynamic ileus and sepsis. PLAN: Continue with enteral nutritional supplementation. We will ask wound care to evaluate the pat ient for possible wound VAC over the incisional wound as well as the previous colostomy site.
[2018-05-09] MEDS: Enoxaparin Sodium 40 MG/0.4 ML SYRINGE SC SCH (21:08)
--- NOTE | 2018-05-10 01:59 | PRG ---
DATE OF SERVICE: 05/09/2018 SUBJECTIVE: Mr. Melgar is tolerating tube feeds now. He is noncommunicative. In talking with his nurse, he has had two small bowel movements. He has been already increased his tube feeds to 40 an h our. PHYSICAL EXAMINATION: VITAL SIGNS: Temperature 97.3, pulse 63, blood pressure 100/51. GENERAL: He is noncommunicative. He has got a Dobbhoff tube in place. LUNGS: Clear. ABDOMEN: Soft and nontender. Bowel sounds are present, but quiescent. There was no distention. Os narayan site is pink. He does have brown stool in the ostomy bag. LABORATORY STUDIES: White count 17.9, hemoglobin 10.5, platelet count 256, bands under 11%. INR is 1.3. Sodium 130, potassium 3.8, BUN and creatinine are 20 and 0.6, calcium 7, phosphorus 1.6, magnes ium 1.5. AST and ALT are 44 and 57, alkaline phosphatase 257. Albumin is 1.8. ASSESSMENT: 1. Status post colostomy for chronic constipation in an institutionalized patient. complicati ons now. The patient has had a colon resection and ileostomy. 2. Prolonged ileus, now improving. 3. Hypomagnesemia and phosphatemia, replaced. 4. The patient is now starting to tolerate tube feeds. He is very malnourished, but looks like hope fully we have to hold off on TPN. We will follow from a distance.
[2018-05-10 04:39] LABS: Magnesium 1.7 mg/dL (1.6-2.6)
[2018-05-10 04:45] LABS: Phosphorus 1.5 mg/dL (2.3-4.7)
[2018-05-10] MEDS: Potassium Phosphate 9 MMOL in Sodium Chloride 0.9% 100 ML IVPB PRN (04:58)
[2018-05-10] MEDS: MEROPENEM 1 GM/50 ML 1 GM in Premix Bag 1 BAG IVPB SCH ×2 (04:58→16:37)
[2018-05-10] MEDS: Metoclopramide HCl 10 MG/2 ML VIAL IVP SCH ×3 (04:58→21:17)
--- NOTE | 2018-05-10 08:41 | PRG ---
DATE OF SERVICE: 05/10/2018 This morning he is awake, alert, responsive. He is tolerating his tube feedings. PHYSICAL EXAMINATION: VITAL SIGNS: His sats are 96 on room air, respiration 20, pulse 86, temperature 98, blood pressure 1 27/72. CHEST: Decreased breath sounds, no wheezing. CARDIAC: Normal S1-S2. No gallops. ABDOMEN: Soft. IMPRESSION: 1. Hyponatremia, probably secondary to diuretics, which was discontinued yesterday. 2. Supraventricular tachycardia. 3. Status post multiple laparotomies for peritonitis. PLAN: Continue enteral feedings as prescribed. Switch him over to p.o. amiodarone. Disposition as per Surgery. We will follow while in the IMCU.
[2018-05-10] MEDS: Amiodarone 200 MG TAB PO SCH ×2 (09:30→21:15)
[2018-05-10] MEDS: Pantoprazole 40 MG VIAL IVP SCH ×2 (09:33→21:16)
--- NOTE | 2018-05-10 13:58 | PRG ---
DATE OF SERVICE: 05/10/2018 SUBJECTIVE: Mr. Melgar is awake and alert. He is tolerating enteral nutritional supplementation, h aving good ileostomy output. He has remained hemodynamically stable and afebrile for several days no w. OBJECTIVE: VITAL SIGNS: Today includes, blood pressure 137/72, pulse 86, respiratory rate is 20, temperature 98 .1 degrees Fahrenheit, and oxygen saturation 96% on room air. HEART: Reveals regular rate and rhythm. LUNGS: Clear to auscultation bilaterally. Breathing regular and unlabored. ABDOMEN: Soft and obese. Incision is intact, clean, and healing. Ileostomy is viable and functiona l with liquid stool and gas. The previous colostomy site is clean with minimum granulation present. IMPRESSION: 1. Status post total colectomy with ileostomy, postoperative day #10. 2. Resolved sepsis. 3. Chronic malnutrition. PLAN: 1. Continue enteral nutritional supplementation and oral intake per speech and language pathology as tolerated. 2. Dr. Nunez is back and service and we will assume care of this patient from surgical standpoint.
--- NOTE | 2018-05-10 15:52 | PRG ---
DATE OF SERVICE: 05/10/2018 SUBJECTIVE: Mr. Melgar is now postoperative day #23 from a laparoscopic sigmoid colectomy with end colostomy. He required a laparoscopic washout and placement of a drain the day after his initial marco a gatito. When he was postoperative day #13, he underwent an exploratory laparotomy and total colectomy per Dr. Rosa in my absence. He was found to have multiple abscesses within the abdomen as well as r ectal necrosis. He remains in the IMCU. He is alert, but as usual is noncommunicative. He appears comfortable, alth ough he has a nasogastric tube in place. He appears to be resting comfortably in his bed. His left hand was restrained. He has apparently been tolerating his tube feeds and he is at goal rate of tube feeds. His ileostomy function has been good also. PHYSICAL EXAMINATION: VITAL SIGNS: He is afebrile with a temperature of 97.0, pulse is 75, blood pressure is 127/58. LUNGS: Clear to auscultation. HEART: Regular rate and rhythm. ABDOMEN: Soft. He has a wound VAC in place and his former colostomy site as well as over his abdomi nal incision. EXTREMITIES: Contracted as usual. LABORATORY STUDIES: Reveal that his white blood cell count yesterday was 17.9. He was not assessed today. His hemoglobin was 10.5 yesterday. His basic metabolic panel was last checked yesterday, whi ch showed minimal electrolyte abnormalities. His phosphorus was low at 1.6. His albumin level is 1. 8. ASSESSMENT: He appears to have been dramatic progress since his colon resection. He is hemodynamica lly stable, alert and comfortable. He is tolerating tube feeds. When he came from the [employer], he was tolerating a diet on its own and will need to begin and advance in his diet. Left keep a rip se eye on him to make sure that he does have become dehydrated now that he has an ileostomy.
[2018-05-10] MEDS ORDERED: Fluconazole In NaCl,Iso-Osm 200 MG in Admixture Fee 1 EACH IVPB SCH (16:30)
[2018-05-10] MEDS ORDERED: Fluconazole In NaCl,Iso-Osm 200 MG in Premix Bag 1 BAG IVPB SCH (16:30)
[2018-05-10] MEDS: Fluconazole In NaCl,Iso-Osm 200 MG in Admixture Fee 1 EACH IVPB SCH (16:56)
[2018-05-10] MEDS: Enoxaparin Sodium 40 MG/0.4 ML SYRINGE SC SCH (21:16)
[2018-05-11 04:34] LABS: Anion Gap 11 mmol/L (10-20); BUN (Urea Nitrogen) 26 mg/dL (8.4-25.7); Calc. Creatinine Clearance 145 mL/min (70-130); Calcium 7.2 mg/dL (7.8-10.44); Carbon Dioxide 17 mmol/L (22-29); Chloride 110 mmol/L (98-107); Estimated GFR-MDRD Greater than 90; Glucose 110 mg/dL (70-105); Potassium 3.7 mmol/L (3.5-5.1); Sodium 134 mmol/L (136-145)
[2018-05-11 05:17] LABS: MDiff Complete? YES; Mean Corpuscular HGB CONC 33.8 g/dL (32.0-36.0); Mean Corpuscular Hemoglobin 32.2 pg (27.0-31.0); Mean Corpuscular Volume 95.4 fL (78.0-98.0); Mean Platelet Volume 7.5 fL (7.4-10.4); Platelet Count 358 thou/uL (130-400); White Blood Cell (WBC) Count 16.2 thou/uL (4.8-10.8)
[2018-05-11 05:18] LABS: Band 25 % (5-11); Eosinophils 4 % (0-10); Lymphocytes 2 % (21-51); Metamyelocyte 1 % (0-0); Monocytes 5 % (0-10); Neutrophil 63 % (42-75); PLT Morphology Comment Appears Adequate
[2018-05-11] MEDS: Metoclopramide HCl 10 MG/2 ML VIAL IVP SCH ×3 (06:07→21:38)
[2018-05-11] MEDS: Amiodarone 200 MG TAB PO SCH ×2 (08:42→21:39)
[2018-05-11] MEDS: Pantoprazole 40 MG VIAL IVP SCH ×2 (08:42→21:39)
--- NOTE | 2018-05-11 09:34 | PRG ---
DATE OF SERVICE: 05/11/2018 This morning he is awake, alert, and responsive, appears to be in no distress, he is in normal sinus rhythm. PHYSICAL EXAMINATION: VITAL SIGNS: Pulse 72, temperature 97, respirations 20, sats 100%, blood pressure 120/57. CHEST: Chest reveals decreased breath sounds, no wheezing. CARDIAC: Normal S1-S2. No gallops. ABDOMEN: Soft, no masses. LABORATORY: White count 16,000, H&H 9 and 26, platelet count normal. Electrolytes are normal. Sodi um is back to normal 134. IMPRESSION: 1. Abdominal sepsis. 2. Supraventricular tachycardia. 3. Mental retardation. DISPOSITION: As per Surgery. Continue supportive care.
--- NOTE | 2018-05-11 16:11 | RAD ---
CHEST ONE VIEW: 05/11/18 COMPARISON: 05/05/18. HISTORY: Leukocytosis. FINDINGS: Persistently diminished lung volumes. Normal cardiac silhouette. The pulmonary vessels and hilum are normal. Costophrenic angles are clear. No consolidation or mass. no pneumothorax or osseous abnormali ties. There appears to be a calcified OCCUP THERAPIST shunt catheter projecting over the right neck and right asmita thorax. IMPRESSION: 1. Persistently diminished lung volumes. 2. Stable left sided central venous catheter. 3. Resolution of previously noted right sided effusion. Otherwise, stable exam. POS: [facility]
--- NOTE | 2018-05-11 16:14 | PRG ---
DATE OF SERVICE: 05/11/2018 SUBJECTIVE: Juan Diego is postoperative day number 24 from his laparoscopic sigmoid colectomy and number 1 1 from his laparotomy with total colectomy and end ileostomy. He remains in the IMCU. He is alert a nd noncommunicative. He appears comfortable. He still has a nasogastric tube in. He was evaluated by Speech Therapy today and was decided to begin to advance him to his usual diet that he is on at [facility]. He has tolerated regular pureed food with assistance. He has been still on goal rate tube feeds at 55 mL per hour. His ostomy continues to work well and his urine output is ex cellent. He shows no signs of distress or discomfort. PHYSICAL EXAMINATION: VITAL SIGNS: He is afebrile, temperature 98.0, pulse 75, blood pressure 127/68. LUNGS: Clear to auscultation. ABDOMEN: Benign. He always has hypoactive bowel sounds, but he does not appear to be tender and his ostomy is putting out well. LABORATORY STUDIES: His CBC reveals white blood cell count has dropped down to 16.2, but he has a ba ndemia with 25% bands. Hemoglobin is 9.0. Electrolytes reveal mild hyponatremia with sodium of 134, CO2 is low at 17. BUN has gone up slightly to 26 and the creatinine is actually decreased at 0.5. His sugars are essentially normal. Phosphorus is low again at 1.3. ASSESSMENT AND PLAN: The patient appears to be stable following his abdominal surgery. Today, I declan l remove his nasogastric tube and hopefully this will facilitate his resumption of his normal oral in take. We will watch him over the weekend to see if he is taking adequate oral intake. Line Helper nicholas has been consulted and hopefully, he will be able to get up and out of bed to his chair. We will have to remove his Renteria catheter in the near future as well. His meropenem has been discontinued a s he has been afebrile for a long period of time. I will check a chest x-ray as this has not been ch ecked in about a week.
[2018-05-11] MEDS: Fluconazole In NaCl,Iso-Osm 200 MG in Admixture Fee 1 EACH IVPB SCH (17:59)
[2018-05-11] MEDS: Enoxaparin Sodium 40 MG/0.4 ML SYRINGE SC SCH (21:39)
[2018-05-12 04:42] LABS: Anion Gap 8 mmol/L (10-20); BUN (Urea Nitrogen) 24 mg/dL (8.4-25.7); Calc. Creatinine Clearance 145 mL/min (70-130); Calcium 7.7 mg/dL (7.8-10.44); Carbon Dioxide 21 mmol/L (22-29); Chloride 109 mmol/L (98-107); Estimated GFR-MDRD Greater than 90; Glucose 78 mg/dL (70-105); Sodium 134 mmol/L (136-145)
[2018-05-12 04:51] LABS: Phosphorus 1.3 mg/dL (2.3-4.7)
[2018-05-12 05:18] LABS: Band 2 % (5-11); Hemoglobin 8.5 g/dL (14.0-18.0); Hypochromia SLIGHT = 6-15 cells (100X) (0-5/hpf); Lymphocytes 4 % (21-51); MDiff Complete? YES; Mean Corpuscular HGB CONC 32.9 g/dL (32.0-36.0); Mean Corpuscular Hemoglobin 31.3 pg (27.0-31.0); Mean Corpuscular Volume 95.2 fL (78.0-98.0); Mean Platelet Volume 7.3 fL (7.4-10.4); Monocytes 4 % (0-10); Neutrophil 90 % (42-75); Nucleated RBC 1 % (0); PLT Morphology Comment Appears Adequate; Platelet Count 387 thou/uL (130-400); RBC Distribution Width 15.2 % (11.5-14.5); Red Blood Cell (RBC) Count 2.72 mill/uL (4.70-6.10); White Blood Cell (WBC) Count 14.7 thou/uL (4.8-10.8)
[2018-05-12] MEDS: Potassium Phosphate 9 MMOL in Sodium Chloride 0.9% 100 ML IVPB PRN (05:59)
[2018-05-12] MEDS: Metoclopramide HCl 10 MG/2 ML VIAL IVP SCH ×3 (05:59→22:09)
[2018-05-12] MEDS: Pantoprazole 40 MG VIAL IVP SCH ×2 (09:50→21:08)
[2018-05-12] MEDS: Amiodarone 200 MG TAB PO SCH ×2 (09:50→21:08)
--- NOTE | 2018-05-12 11:56 | PRG ---
DATE OF SERVICE: 05/12/2018 SUBJECTIVE: No complaints. No issues overnight. OBJECTIVE: He is afebrile. Vital signs are stable. His abdomen is soft. Wound VAC. Ostomy has st ool in it. Stool for the day yesterday was 10:50. ASSESSMENT: Postop total colectomy, ileostomy, starting increasing oral intake. Watch output, may n eed some antidiarrheal if it increases any more with oral intake. Continue therapy.
--- NOTE | 2018-05-12 14:15 | PRG ---
DATE OF SERVICE: 05/12/2018 SUBJECTIVE: He is in the MICU. OBJECTIVE: VITAL SIGNS: Pulse is 89, blood pressure 129/82, sats are 100% on room air, respirations 18. GENERAL: Appears to be in no distress. CHEST: No wheezing. CARDIAC: Normal S1, S2, without mass or gallops. ABDOMEN: Soft, no masses. LABORATORY DATA: White count 14,000, H&H 8 and 25, platelet count is normal. Electrolytes are anais l. He had a chest x-ray ordered yesterday, which shows no acute infiltrates. IMPRESSION: Abdominal sepsis, . PLAN: Continue supportive care, PT, eventually transfer back to [facility].
[2018-05-12] MEDS: Fluconazole In NaCl,Iso-Osm 200 MG in Admixture Fee 1 EACH IVPB SCH (16:34)
[2018-05-12] MEDS: Enoxaparin Sodium 40 MG/0.4 ML SYRINGE SC SCH (21:09)
[2018-05-13] MEDS: Metoclopramide HCl 10 MG/2 ML VIAL IVP SCH ×3 (06:05→22:27)
[2018-05-13] MEDS: Amiodarone 200 MG TAB PO SCH ×2 (10:01→22:27)
[2018-05-13] MEDS: Pantoprazole 40 MG VIAL IVP SCH ×2 (10:01→22:20)
--- NOTE | 2018-05-13 10:01 | PRG ---
DATE OF SERVICE: 05/13/2018 SUBJECTIVE: This morning, he is awake, responsive, in no distress. OBJECTIVE: VITAL SIGNS: Temperature 98, pulse 78, sats are 100%, blood pressure 130/67. CHEST: No wheezing or crackles. CARDIAC: Normal S1, S2, no gallops. ABDOMEN: Soft. IMPRESSION: 1. Status post multiple laparotomies for peritonitis. 2. Sepsis syndrome. 3. Mental retardation. PLAN: The patient is tolerating diet. Continue supportive care and PT. We will follow while in the MICU.
--- NOTE | 2018-05-13 11:04 | PRG ---
DATE OF SERVICE: 05/13/2018 SUBJECTIVE: Mr. Melgar had no events overnight. His condition really has stabilized. He is able t o take p.o. He has minimal IV requirements now. PHYSICAL EXAMINATION: VITAL SIGNS: He is afebrile. Vital signs are stable. ABDOMEN: His abdomen wound is in a wound VAC. The ostomy has stool in it. LABORATORY DATA: No new labs today. No new CBC today. His chemistry shows sodium 134, potassium 4. 0, creatinine 0.54. ASSESSMENT: History of peritonitis, now improved clinically. Okay to transferred to medical floor.
[2018-05-13] MEDS: Fluconazole In NaCl,Iso-Osm 200 MG in Admixture Fee 1 EACH IVPB SCH (18:05)
[2018-05-13] MEDS ORDERED: Sterile Water 10 ML VIAL IVP SCH (20:45)
[2018-05-13] MEDS ORDERED: Activase 2 MG VIAL CATH SCH (20:45)
[2018-05-13] MEDS: Enoxaparin Sodium 40 MG/0.4 ML SYRINGE SC SCH (22:20)
[2018-05-14] MEDS: Metoclopramide HCl 10 MG/2 ML VIAL IVP SCH ×2 (05:47→13:00)
[2018-05-14] MEDS: Amiodarone 200 MG TAB PO SCH ×2 (08:41→23:46)
[2018-05-14] MEDS: Pantoprazole 40 MG VIAL IVP SCH (08:42)
[2018-05-14] MEDS: Fluconazole In NaCl,Iso-Osm 200 MG in Admixture Fee 1 EACH IVPB SCH (17:30)
--- NOTE | 2018-05-14 19:04 | PRG ---
DATE OF SERVICE: 05/14/2018 SUBJECTIVE: Mr. Melgar is on the surgical floor today. He was transferred over the weekend from [facility]. He is off all IV fluids and tolerating his oral intake well. His aid who was with him tells me that he ate all of his dinner and is drinking fluids well. He has good ostomy function and good urine output. (He still has a Renteria catheter). OBJECTIVE: VITAL SIGNS: On examination, he is afebrile, pulse is 78-84, blood pressure is 112/72. LUNGS: Clear to auscultation. ABDOMEN: Soft with excellent bowel sounds. Wound VAC is still in place over the left-sided ostomy i n his midline wound. ASSESSMENT AND PLAN: The patient is doing very well. All of his IV medications will be discontinued at this time (including Protonix, Reglan, Diflucan). I will also remove his Renteria catheter this juan manuel monica. He will need to wear adult diapers [facility] I need to see his wound in the next day or so and if that looks okay and everything continues well and I would anticipa te discharge in the next 24-48 hours. Repeat labs will be checked tomorrow.
[2018-05-14] MEDS: Enoxaparin Sodium 40 MG/0.4 ML SYRINGE SC SCH (23:46)
[2018-05-15 05:22] LABS: Anion Gap 12 mmol/L (10-20); BUN (Urea Nitrogen) 20 mg/dL (8.4-25.7); Calc. Creatinine Clearance 116 mL/min (70-130); Carbon Dioxide 21 mmol/L (22-29); Chloride 103 mmol/L (98-107); Estimated GFR-MDRD Greater than 90; Glucose 88 mg/dL (70-105); Phosphorus 3.6 mg/dL (2.3-4.7); Potassium 3.9 mmol/L (3.5-5.1); Sodium 132 mmol/L (136-145)
[2018-05-15 05:57] LABS: Band 44 % (5-11); Lymphocytes 1 % (21-51); MDiff Complete? YES; Mean Corpuscular HGB CONC 33.5 g/dL (32.0-36.0); Mean Corpuscular Hemoglobin 31.4 pg (27.0-31.0); Mean Corpuscular Volume 93.8 fL (78.0-98.0); Mean Platelet Volume 6.7 fL (7.4-10.4); Monocytes 2 % (0-10); Neutrophil 53 % (42-75); PLT Morphology Comment Appears Increased; Platelet Count 425 thou/uL (130-400); RBC Distribution Width 15.2 % (11.5-14.5); Red Blood Cell (RBC) Count 2.55 mill/uL (4.70-6.10); White Blood Cell (WBC) Count 17.1 thou/uL (4.8-10.8)
[2018-05-15] MEDS: Amiodarone 200 MG TAB PO SCH ×2 (08:10→20:48)
--- NOTE | 2018-05-15 14:35 | PRG ---
DATE OF SERVICE: 05/15/2018 SUBJECTIVE: Mr. Melgar continues to look good. He is tolerating his diet well. His ostomy is func tioning well. His Renteria catheter is removed this morning. He has been voiding. His artificial stone setter tells me that he has been in good spirits and is without evidence of distress. PHYSICAL EXAMINATION: VITAL SIGNS: He is afebrile with maximum temperature 98.5, pulse 76-92, blood pressure is 122/76. LUNGS: Clear to auscultation. ABDOMEN: Benign. Wound VAC is in place over the ostomy site in the left lower abdomen. LABORATORY DATA: His basic metabolic panel is essentially normal. His phosphorous had previously be en low, is now normal. His CBC, however, reveals white blood cell count up to 17.1 with 44% bandemia . Platelet count is counted from 387-425, hemoglobin is essentially stable at 8.0. ASSESSMENT: Patient appears to be doing well following his total colectomy with ileostomy, but uncer tain why his white blood cell count has gone up. He shows no sign of pain and he has no fever. Tosam y, I will remove his central line as he persists in having leukocytosis and I will probably have to e valuate with a CT scan. Also, check his wound with care team tomorrow. If his CBC looks better, the n he may be ready for discharge tomorrow.
[2018-05-15] MEDS: Enoxaparin Sodium 40 MG/0.4 ML SYRINGE SC SCH (20:47)
[2018-05-16 06:27] LABS: Band 8 % (5-11); Hemoglobin 9.1 g/dL (14.0-18.0); Lymphocytes 2 % (21-51); MDiff Complete? YES; Mean Corpuscular HGB CONC 33.3 g/dL (32.0-36.0); Mean Corpuscular Hemoglobin 30.9 pg (27.0-31.0); Mean Corpuscular Volume 92.6 fL (78.0-98.0); Mean Platelet Volume 7.7 fL (7.4-10.4); Monocytes 3 % (0-10); Neutrophil 87 % (42-75); PLT Morphology Comment Appears Adequate; Platelet Count 375 thou/uL (130-400); Polychromasia SLIGHT = 2-3 cells (100X) (0-2/hpf); RBC Distribution Width 15.2 % (11.5-14.5); Red Blood Cell (RBC) Count 2.95 mill/uL (4.70-6.10)
[2018-05-16] MEDS: Amiodarone 200 MG TAB PO SCH ×2 (08:41→21:32)
[2018-05-16] MEDS ORDERED: Iopamidol 370 76% 100 ML VIAL ONE (08:48)
--- NOTE | 2018-05-16 13:55 | CT ---
CT ABDOMEN AND PELVIS WITH IV CONTRAST: 05/16/2018 HISTORY: Elevated white blood cell. Quadriplegia. History of peritonitis. COMPARISON: 05/05/2018 FINDINGS: There is a small left pleural effusion, which has decreased in size from the prior study, with interv al resolution of the right pleural effusion. There is evidence of bibasilar atelectasis. The liver is small in size, which may be post surgical in origin, with suggestion of excision of a la rge portion of the liver. Nonobstructing left renal calculi are again noted, with stable subcentimeter, [id number], hypodense lesions in each kidney. The spleen, pancreas, and bilateral adrenal glands demonstrate a normal CT appearance. Post cholecys tectomy changes are noted. A focus of gas is seen within the urinary bladder, which may be related to recent catheterization. The previously noted dilated loops of small bowel have decreased in overall diameter, but dilated loo ps of small bowel do persist. There is thickening of a loop of small bowel seen within the left uppe r quadrant, which was less apparent on the prior exam and could be related to enteritis. There is a right mid abdominal colostomy with post surgical changes related to a left hemicolectomy a nd a Best pouch. There is a fluid collection seen extending from the left upper quadrant and into the pelvis. The ove rall craniocaudal dimension of this collection measures 15.6 cm with greatest AP dimension 5.3 cm and transverse dimension 4 cm. This extends into the pelvis, and there is a fluid collection seen centr ally within the pelvis, measuring 6.1 cm x 3.7 cm, which probably also communicates with this collect ion. Although some of the núñez of this collection at the left aspect of the abdomen are not well de fined, findings are worrisome for a developing abscess collection. There is a small, subcapsular spl enic collection noted, measuring 5.4 cm x 1 cm. The abdomen is otherwise unchanged with a small amount of free fluid present within the abdomen, agai n predominantly within the right upper quadrant, although the amount of free fluid has improved. IMPRESSION: 1. Fluid collection within the left aspect of the abdomen, which extends into the pelvis, likely rel ated to an abscess collection. This collection is percutaneously accessible for percutaneous drainag e. There is a collection seen within the central pelvis, which may potentially communicate with the larger collection in the left abdomen. 2. Thickening of a loop of small bowel within the left upper quadrant. This could be related to ent eritis. There are mildly dilated loops of small bowel, which could be related to ileus or a partial small bowel obstruction, but the degree of small bowel dilatation has improved from the prior study. The thickened loop of small bowel in the anterior abdomen was present on the prior study but is more apparent on the current examination. Continued follow up recommended. 3. Improvement in intraperitoneal free fluid and mesenteric edema, although this does persist. 4. Improvement in bilateral pleural effusions with only a tiny left pleural effusion on today's exam ination. 5. Post surgical changes of the liver, as well as evidence of a prior hysterectomy. 6. Gas within the urinary bladder, which may be related to recent catheterization. Clinical correla tion is suggested. 7. Findings that may be related to a testicle within the right inguinal canal. This is unchanged fr om the study on 04/19/2018. POS: [facility]
[2018-05-16] MEDS ORDERED: Sodium Bicarbonate 2.5 MEQ/5 ML VIAL ONE (14:13)
--- NOTE | 2018-05-16 16:53 | CT ---
CT GUIDED PERCUTANEOUS LEFT ABDOMINAL FLUID COLLECTION/ABSCESS DRAINAGE 05/16/18 HISTORY: Fluid collection within the left abdomen in a patient with elevated white blood cell count. TECHNIQUE: After informed consent was obtained, the patient was placed on the CT scan table in the supine positi on. Limited noncontrasted CT scan was obtained through the abdomen with grid localizer in place overl haider the left abdomen. An area was marked and then meticulously prepped and draped in the usual sterile fashion. Skin and melo bcutaneous tissues were infiltrated with buffered 1% lidocaine for local anesthesia. A 21 gauge micropuncture needle was advanced into the collection and positioning within the collectio n was confirmed with three axial noncontrasted CT images. The needle was exchanged over a 0.018 inch guidewire for a 5 Qatari introducer sheath. A 0.035 inch A mplatz guidewire was placed and position was again confirmed with three axial noncontrasted CT images . The introducer sheath was exchanged over the guidewire for an 8 Qatari tissue dilator followed by p lacement of an 8 Qatari [place] loop all purpose drainage catheter. Approximately 55 mL of purulent and blood tinged fluid was aspirated from the collection. Collection was flushed and placed to gravity dr alfonso. The catheter was sutured in place utilizing 2-0 Ethilon suture material. A dry sterile dressi ng was placed. Postprocedure CT imaging was performed demonstrating the [place] loop portion of the drai maiae catheter within the collection in the left lower quadrant. Patient tolerated the procedure well and without immediate complication. Patient transported to his h ospital room in stable condition. IMPRESSION: 1. Left lower quadrant fluid collection having the appearance of abscess collection. 2. Technically successful CT guided percutaneous drainage of a left abdominal fluid collection w ith 8 Qatari Joshua [place] loop drainage catheter placed in the collection. Purulent blood tinged fluid was as pirated. Specimen was sent for labs. POS: [facility]
[2018-05-16] MEDS: Piperacillin/Tazobactam 3.375 GM in Sodium Chloride 0.9% 100 ML IVPB SCH (17:28)
[2018-05-16 19:48] LABS: BF Color Red; Clarity Cloudy/Turbid (Clear); RBC Count-Automated 1260000 /cumm; Tube # EDTA; WBC/NonHematic-Auto 241 /cumm
[2018-05-16 20:21] LABS: BF Segmented Neutrophils 89 %; Lymphocytes 11 %
[2018-05-16] MEDS: Enoxaparin Sodium 40 MG/0.4 ML SYRINGE SC SCH (21:32)
[2018-05-17] MEDS: Piperacillin/Tazobactam 3.375 GM in Sodium Chloride 0.9% 100 ML IVPB SCH ×4 (01:02→17:59)
[2018-05-17] MEDS: Amiodarone 200 MG TAB PO SCH ×2 (09:10→21:39)
--- NOTE | 2018-05-17 10:59 | CT ---
CT GUIDED PERCUTANEOUS LEFT ABDOMINAL FLUID COLLECTION/ABSCESS DRAINAGE 05/16/18 HISTORY: Fluid collection within the left abdomen in a patient with elevated white blood cell count. TECHNIQUE: After informed consent was obtained, the patient was placed on the CT scan table in the supine positi on. Limited noncontrasted CT scan was obtained through the abdomen with grid localizer in place overl haider the left abdomen. An area was marked and then meticulously prepped and draped in the usual sterile fashion. Skin and melo bcutaneous tissues were infiltrated with buffered 1% lidocaine for local anesthesia. A 21 gauge micropuncture needle was advanced into the collection and positioning within the collectio n was confirmed with three axial non[address]asted CT images. The needle was exchanged over a 0.018 inch guidewire for a 5 Mexican introducer sheath. A 0.035 inch A mplatz guidewire was placed and position was again confirmed with three axial noncontrasted CT images . The introducer sheath was exchanged over the guidewire for an 8 Mexican tissue dilator followed by p lacement of an 8 Mexican [place] loop all purpose drainage catheter. Approximately 55 mL of purulent and blood tinged fluid was aspirated from the collection. Collection was flushed and placed to gravity dr alfonso. The catheter was sutured in place utilizing 2-0 Ethilon suture material. A dry sterile dressi ng was placed. Postprocedure CT imaging was performed demonstrating the [place] loop portion of the drai maiae catheter within the collection in the left lower quadrant. Patient tolerated the procedure well and without immediate complication. Patient transported to his h ospital room in stable condition. IMPRESSION: 1. Left lower quadrant fluid collection\abscess. 2. Technically successful CT guided percutaneous drainage of the left abdominal fluid collection with 8 Mexican [place] loop drainage catheter placed in the collection. Purulent blood tinged fluid was aspir ated. Specimen was sent for labs.
[2018-05-17 13:20] LABS: #Basophils 0.1 thou/uL (0.0-0.2); #Eosinphils 0.6 thou/uL (0.0-0.7); #Monocytes 0.5 thou/uL (0.11-0.59); #Neutrophils 9.3 thou/uL (1.40-6.50); %Basophils 0.6 % (0.0-1.0); %Eosinophils 5.6 % (0.0-10.0); %Monocytes 4.3 % (0.0-10.0); %Neutrophils 80.5 % (42.0-75.0); Hemoglobin 8.5 g/dL (14.0-18.0); Mean Corpuscular Hemoglobin 31.5 pg (27.0-31.0); Mean Corpuscular Volume 92.6 fL (78.0-98.0); Mean Platelet Volume 6.5 fL (7.4-10.4); Platelet Count 461 thou/uL (130-400); RBC Distribution Width 14.9 % (11.5-14.5); Red Blood Cell (RBC) Count 2.69 mill/uL (4.70-6.10); White Blood Cell (WBC) Count 11.6 thou/uL (4.8-10.8)
--- NOTE | 2018-05-17 13:50 | PRG ---
DATE OF SERVICE: 05/17/2018 SUBJECTIVE: Mr. Melgar is resting in his bed on the surgical floor. Yesterday when he was found to have further elevation of his white blood cell count, a CT scan of the abdomen was obtained. This u nfortunately revealed a left-sided intra-abdominal abscess. A CT-guided abscess drainage was perform ed, removing about 50 mL of purulent-appearing material. Gram stain revealed gram negative rods. Cu ltures are still pending. The patient was restarted on Zosyn. He is still tolerating his diet well. His ileostomy is still functioning well. He is voiding well. PHYSICAL EXAMINATION: VITAL SIGNS: He remains afebrile with normal vital signs. LUNGS: Clear to auscultation. ABDOMEN: Benign with normoactive bowel sounds. His abdomen is soft and does not appear to be tender and as mentioned, has normoactive bowel sounds. ASSESSMENT AND PLAN: The patient with an unfortunate new finding of intra-abdominal abscess. Cultur es are pending. Empiric antibiotics have been started. He is still tolerating his regular diet with good ostomy function. He will need to be kept here on IV antibiotics until we see what medication w ould be appropriate for him to be on. He may be a candidate for discharge with the drain if he stabi lizes. Otherwise, we will continue his current care.
[2018-05-17] MEDS: traMADol HCl 50 MG TAB PO PRN (21:23)
[2018-05-17] MEDS: Enoxaparin Sodium 40 MG/0.4 ML SYRINGE SC SCH (21:43)
[2018-05-18] MEDS: Piperacillin/Tazobactam 3.375 GM in Sodium Chloride 0.9% 100 ML IVPB SCH ×5 (00:03→23:48)
[2018-05-18] MEDS: traMADol HCl 50 MG TAB PO PRN ×2 (05:18→09:34)
[2018-05-18 06:36] LABS: #Eosinphils 0.8 thou/uL (0.0-0.7); #Lymphocytes 1.4 thou/uL (1.20-3.40); #Monocytes 0.6 thou/uL (0.11-0.59); #Neutrophils 9.3 thou/uL (1.40-6.50); %Basophils 0.2 % (0.0-1.0); %Eosinophils 6.4 % (0.0-10.0); %Lymphocytes 11.2 % (21.0-51.0); %Monocytes 5.2 % (0.0-10.0); Hemoglobin 8.1 g/dL (14.0-18.0); Mean Corpuscular HGB CONC 32.9 g/dL (32.0-36.0); Mean Corpuscular Hemoglobin 30.9 pg (27.0-31.0); Mean Corpuscular Volume 93.8 fL (78.0-98.0); Mean Platelet Volume 6.9 fL (7.4-10.4); PLT Morphology Comment Appears Increased; Platelet Count 463 thou/uL (130-400); RBC Distribution Width 15.1 % (11.5-14.5); Red Blood Cell (RBC) Count 2.62 mill/uL (4.70-6.10); White Blood Cell (WBC) Count 12.1 thou/uL (4.8-10.8)
[2018-05-18] MEDS: Amiodarone 200 MG TAB PO SCH ×2 (09:34→20:55)
--- NOTE | 2018-05-18 14:05 | PRG ---
DATE OF SERVICE: 05/18/2018 HISTORY OF PRESENT ILLNESS: Mr. Melgar is resting on the surgical floor. In general he appears to be doing well. His mammal keeper tells me he ate all of his breakfast this morning, but he did not seem very interested in lunch. He has had no vomiting. His ostomy continues to work well. I examined his wounds with a wound care team today. His ostomy wound on the left abdomen is bigger t romo I would have anticipated. It is, however, lined with appropriate healthy tissue. It is fairly l arge and undermined. There are at least two open wounds on right side of his abdomen. One is close to the midline incision, the other is in the right lower quadrant. These also do not exhibit any matt dence of appropriate healing or closing. His midline incision appears to be healing appropriately. Ostomy appears to be viable. Abdomen is soft. He has got normal bowel sounds. PHYSICAL EXAMINATION: VITAL SIGNS: He is afebrile, pulse 71, blood pressure 112/65. LUNGS: Clear to auscultation. ABDOMEN: Soft with normal bowel sounds. LABORATORY STUDIES: His white blood cell count has gone up slightly from 11.6 yesterday, 12.1 today. Hemoglobin is 8.1, platelet count is 463. He did not have a chemistry panel performed today. His cultures from the abscess drainage a couple of days ago are still preliminary. Gram-negative rods, b ut these are not yet isolated. ASSESSMENT: He appears to be stable following drainage of his recently discovered abscess. He is co ntinuing on IV Zosyn. He is tolerating his regular diet and appears to be stable hemodynamically and from a laboratory standpoint. Continue wound care with a wound VAC for now. Continue his IV antibi otics and his drain. Should he remain stable over the weekend, then I would hope to be able to trans steve him to a [facility] facility for continued wound care and antibiotics and drain management. I have discussed his care with his from the [employer] as well as his guardian today.
[2018-05-18] MEDS: Enoxaparin Sodium 40 MG/0.4 ML SYRINGE SC SCH (20:55)
[2018-05-19 05:11] LABS: ALT (SGPT) 40 U/L (8-55); AST (SGOT) 28 U/L (5-34); Albumin 2.3 g/dL (3.5-5.0); Alkaline Phosphatase 149 U/L (40-150); Anion Gap 13 mmol/L (10-20); BUN (Urea Nitrogen) 15 mg/dL (8.4-25.7); Bilirubin, Total 0.4 mg/dL (0.2-1.2); Calc. Creatinine Clearance 111 mL/min (70-130); Calcium 8.3 mg/dL (7.8-10.44); Carbon Dioxide 20 mmol/L (22-29); Chloride 110 mmol/L (98-107); Estimated GFR-MDRD Greater than 90; Globulin 3.9 g/dL (2.4-3.5); Glucose 93 mg/dL (70-105); Protein, Total 6.2 g/dL (6.0-8.3); Sodium 139 mmol/L (136-145)
[2018-05-19] MEDS: Piperacillin/Tazobactam 3.375 GM in Sodium Chloride 0.9% 100 ML IVPB SCH ×3 (06:06→17:43)
[2018-05-19 07:02] LABS: Band 19 % (5-11); Eosinophils 8 % (0-10); Hemoglobin 9.9 g/dL (14.0-18.0); Lymphocytes 5 % (21-51); MDiff Complete? YES; Mean Corpuscular HGB CONC 32.2 g/dL (32.0-36.0); Mean Corpuscular Hemoglobin 30.3 pg (27.0-31.0); Mean Corpuscular Volume 94.2 fL (78.0-98.0); Mean Platelet Volume 6.3 fL (7.4-10.4); Monocytes 7 % (0-10); Myelocyte 2 % (0-0); Neutrophil 59 % (42-75); Platelet Count 558 thou/uL (130-400); RBC Distribution Width 15.2 % (11.5-14.5); Red Blood Cell (RBC) Count 3.27 mill/uL (4.70-6.10); White Blood Cell (WBC) Count 16.1 thou/uL (4.8-10.8)
[2018-05-19] MEDS: Amiodarone 200 MG TAB PO SCH ×2 (08:20→21:41)
[2018-05-19] MEDS: traMADol HCl 50 MG TAB PO PRN (21:40)
[2018-05-19] MEDS: Enoxaparin Sodium 40 MG/0.4 ML SYRINGE SC SCH (21:40)
--- NOTE | 2018-05-19 23:07 | PDOC.GSPN ---
Surgery Progress Note: Subj - Subjective Narrative: Patient is tolerating diet according to his sister. His ALL had about 70 and he has passed some stool through his ileostomy. White count is slightly up to 16 but he has been afebrile with normal vital signs. His percutaneous drain has Escherichia coli on culture with sensitivities pending. We will continue with antibiotics and drainage. Surgery Progress Note: Obj - Vital signs Vital signs: Vital Signs - Most Recent Temp Pulse Resp BP Pulse Ox 98.5 F 92 20 108/71 98 05/19/18 20:30 05/19/18 20:30 05/19/18 20:30 05/19/18 20:30 05/19/18 20:30 Surgery Progress Note: Results - Labs Result Diagrams: 05/19/18 04:15 05/19/18 04:15
[2018-05-20] MEDS: Piperacillin/Tazobactam 3.375 GM in Sodium Chloride 0.9% 100 ML IVPB SCH ×4 (00:16→18:10)
[2018-05-20] MEDS: Amiodarone 200 MG TAB PO SCH ×2 (08:30→20:23)
[2018-05-20] MEDS: traMADol HCl 50 MG TAB PO PRN ×2 (12:08→20:23)
--- NOTE | 2018-05-20 17:02 | PDOC.GSPN ---
Surgery Progress Note: Subj - Subjective Narrative: Patient has been somewhat groggy today according to his attendants. He has been drinking fluids but hasn't really wanted to eat solid food. On physical examination his abdomen is soft and nondistended and he does not exhibit any tenderness with palpation. Assessment/plan: Doing reasonably well following ileostomy and subtotal colectomy. Continue current management with diet as tolerated and antibiotics. Surgery Progress Note: Obj - Vital signs Vital signs: Vital Signs - Most Recent Temp Pulse Resp BP Pulse Ox 98.4 F 87 18 112/78 98 05/20/18 15:55 05/20/18 15:55 05/20/18 15:55 05/20/18 15:55 05/20/18 15:55 Surgery Progress Note: Results - Labs Result Diagrams: 05/19/18 04:15 05/19/18 04:15
[2018-05-20] MEDS: Enoxaparin Sodium 40 MG/0.4 ML SYRINGE SC SCH (20:24)
[2018-05-21] MEDS: Piperacillin/Tazobactam 3.375 GM in Sodium Chloride 0.9% 100 ML IVPB SCH ×5 (01:07→23:27)
[2018-05-21] MEDS: Amiodarone 200 MG TAB PO SCH ×2 (08:55→21:17)
[2018-05-21] MEDS ORDERED: Sodium Chloride 0.9% 500 ML IV SCH (10:15)
--- NOTE | 2018-05-21 16:45 | PDOC.GSPN ---
Surgery Progress Note: Subj - Subjective Narrative: Drinking a fair amount per sitter but not quantified. Only 2 wet diapers documented yesterday and ileostomy output down. Abd exam benign and stoma healthy, wound looks good at VAC change. I think he is a little dry and ordered NS IV bous, and asked RN/sitter to quantify intake. Surgery Progress Note: Obj - Vital signs Vital signs: Vital Signs - Most Recent Temp Pulse Resp BP Pulse Ox 98.6 F 71 20 114/70 97 05/21/18 15:39 05/21/18 15:39 05/21/18 15:39 05/21/18 15:39 05/21/18 15:39 Surgery Progress Note: Results - Labs Result Diagrams: 05/19/18 04:15 05/19/18 04:15
[2018-05-21] MEDS: Enoxaparin Sodium 40 MG/0.4 ML SYRINGE SC SCH (21:17)
[2018-05-21] MEDS: traMADol HCl 50 MG TAB PO PRN (23:26)
[2018-05-22 05:06] LABS: ALT (SGPT) 29 U/L (8-55); AST (SGOT) 45 U/L (5-34); Albumin 2.1 g/dL (3.5-5.0); Alkaline Phosphatase 134 U/L (40-150); Anion Gap 14 mmol/L (10-20); BUN (Urea Nitrogen) 20 mg/dL (8.4-25.7); Bilirubin, Total 0.3 mg/dL (0.2-1.2); Calc. Creatinine Clearance 113 mL/min (70-130); Calcium 8.5 mg/dL (7.8-10.44); Carbon Dioxide 21 mmol/L (22-29); Chloride 110 mmol/L (98-107); Estimated GFR-MDRD Greater than 90; Globulin 3.6 g/dL (2.4-3.5); Glucose 106 mg/dL (70-105); Potassium 4.1 mmol/L (3.5-5.1); Protein, Total 5.7 g/dL (6.0-8.3); Sodium 141 mmol/L (136-145)
[2018-05-22 05:31] LABS: Band 14 % (5-11); Eosinophils 13 % (0-10); Hemoglobin 8.5 g/dL (14.0-18.0); Lymphocytes 13 % (21-51); MDiff Complete? YES; Mean Corpuscular HGB CONC 31.9 g/dL (32.0-36.0); Mean Corpuscular Volume 94.1 fL (78.0-98.0); Mean Platelet Volume 6.5 fL (7.4-10.4); Metamyelocyte 1 % (0-0); Monocytes 4 % (0-10); Myelocyte 2 % (0-0); Neutrophil 52 % (42-75); Nucleated RBC 2 % (0); PLT Morphology Comment Appears Increased; Platelet Count 600 thou/uL (130-400); RBC Distribution Width 15.6 % (11.5-14.5); Reactive Lymphocytes 1 % (0-10); Red Blood Cell (RBC) Count 2.83 mill/uL (4.70-6.10)
[2018-05-22] MEDS: Piperacillin/Tazobactam 3.375 GM in Sodium Chloride 0.9% 100 ML IVPB SCH (05:56)
[2018-05-22] MEDS: Amiodarone 200 MG TAB PO SCH ×2 (08:25→20:21)
--- NOTE | 2018-05-22 12:36 | CT ---
CT ABDOMEN WITH CONTRAST CT PELVIS WITH CONTRAST: COMPARISON: 05/16/18. HISTORY: Evaluate abscess. FINDINGS: ABDOMEN CT: Small bilateral effusions, right greater than left. There is elevation of the right hemidiaphragm secondary to a right-sided subdiaphragmatic hernia of m esenteric contents. Stable enhancement of the solid organs. There is fluid in the gallbladder fossa . Portal vein is patent. Stable nonobstructing calculi in the kidneys. Stable hypodensities in the right kidney. Bilaterally , no obstructive uropathy. Gastric mucosa is unremarkable. Multiple prominent fluid-filled and contrast-filled small bowel loop s are noted. Best's pouch is identified. There is a right lower quadrant ileostomy. There is a surgical drainage catheter in the left lower quadrant. Adjacent small pockets of fluid ar e noted. There are small pockets of air and fluid also still in the left lower quadrant. The larges t fluid collection with small pockets of air measures 4.0 x 1.8 cm and is somewhat ill-defined. A we ll-circumscribed peripherally enhancing margin is not appreciated. When compared to the prior exam, the amount of fluid has decreased. Continued surveillance is recommended. There is a small amount o f fluid in the right hemiabdomen. Nonspecific hypodensity in the left lower quadrant is noted measuring 2.1 x 3.1 cm. There is a hypod ensity in the midline of the lower abdomen measuring 1.6 x 2.1 cm (previously measuring 6.0 x 3.5 cm) . IMPRESSION: Interval reduction in size of the previously noted infected fluid. Drainage catheter is noted in the left hemiabdomen. Continued observation and surveillance is recommended. POS: [facility]
[2018-05-22] MEDS: MEROPENEM 1 GM/50 ML 1 GM in Premix Bag 1 BAG IVPB SCH ×2 (13:33→21:38)
[2018-05-22] MEDS ORDERED: Iopamidol 370 76% 100 ML VIAL ONE (13:55)
[2018-05-22] MEDS ORDERED: Meropenem 1 GM in Sodium Chloride 0.9% 100 ML IVPB SCH (14:00)
[2018-05-22] MEDS: Enoxaparin Sodium 40 MG/0.4 ML SYRINGE SC SCH (20:21)
[2018-05-22] MEDS: traMADol HCl 50 MG TAB PO PRN (20:21)
[2018-05-23] MEDS: MEROPENEM 1 GM/50 ML 1 GM in Premix Bag 1 BAG IVPB SCH ×3 (06:24→20:26)
[2018-05-23] MEDS: traMADol HCl 50 MG TAB PO PRN ×3 (06:24→18:52)
[2018-05-23] MEDS: Amiodarone 200 MG TAB PO SCH ×2 (09:37→20:26)
--- NOTE | 2018-05-23 14:57 | PRG ---
DATE OF SERVICE: 05/23/2018 HISTORY OF PRESENT ILLNESS: Mr. Melgar has been here for a long time following his initial sigmoid colectomy with colostomy and subsequent total colectomy with proximal ileostomy. Last week, he was f elt to be ready for discharge when his white blood cell count began going up and a CT scan revealed e vidence of an intra-abdominal abscess. He had this drained last week and his white blood cell count dropped initially. Unfortunately, it has gone back up and was 16 yesterday. I therefore obtained a CT scan, which shows a few fluid collections within his abdomen, which seemed to be in continuity wit h the area of his drain, but I cannot be certain of this. He is tolerating his diet, but not eating very much. He is not getting anything substantial for pain . PHYSICAL EXAMINATION: VITAL SIGNS: He is afebrile. Vital signs are normal. LUNGS: Clear to auscultation. ABDOMEN: Benign with excellent bowel sounds. Wound VAC is in place over his prior ostomy in the lef t abdomen. LABORATORY STUDIES: No labs were obtained today. His hemoglobin was 8.5 yesterday. Electrolytes we re minimally abnormal yesterday and his albumin remains low at 2.1. In summary, he continues to languish after his surgery. The fluid collections in his abdomen might b e appropriate for reexploration and surgical drainage, but reoperating on him at this point after his most recent surgery would be inadvisable unless emergent. His last surgery was on the per Dr. Rosa and from that surgery he is therefore postoperative day number 23. I will instead change his a ntibiotics (which I changed yesterday) from Zosyn to meropenem. His cultures did show that he had ps eudomonas, which was not well covered by the Zosyn. Hopefully, the addition of meropenem will help f or whatever intra-abdominal infection it may be to resolve. For now, continue IV antibiotics, contin ue his intra-abdominal drain and continue his diet.
[2018-05-23] MEDS: Enoxaparin Sodium 40 MG/0.4 ML SYRINGE SC SCH (20:25)
[2018-05-24] MEDS: traMADol HCl 50 MG TAB PO PRN ×3 (01:10→20:22)
[2018-05-24] MEDS: MEROPENEM 1 GM/50 ML 1 GM in Premix Bag 1 BAG IVPB SCH ×3 (05:36→20:22)
[2018-05-24] MEDS: Amiodarone 200 MG TAB PO SCH ×3 (08:27→20:22)
--- NOTE | 2018-05-24 15:36 | SPC ---
PICC PLACEMENT ULTRASOUND GUIDED VENOUS ACCESS: (Peripherally Inserted Central Catheter) DATE: 05/24/18. HISTORY: A 62-year-old male with intraabdominal abscess requiring long-term IV antibiotic therapy. TECHNIQUE: Catheter caliber: 5 Maltese. Catheter trim length: 41.5 cm. Catheter lumen number: double. Catheter tip location: superior vena cava/right atrial junction. Vein accessed: left basilic. Signed, informed consent was obtained. A tourniquet was applied at the proximal aspect of the arm. The arm was prepared and draped in the usual sterile fashion. A 25 gauge needle was used to apply bu ffered lidocaine superficially. The vein was punctured with a 21 gauge micropuncture needle under ul trasound guidance. A 0.018 inch guide wire was advanced through the micropuncture needle and into th e vein. Under fluoroscopic guidance, the guide wire was advanced to the right atrium. The PICC (per ipherally inserted central catheter) was flushed and trimmed to the appropriate length. The skin pun cture hole was widened with a blade. The micropuncture needle was exchanged over the guide wire for a 5 Maltese peel-away dilator sheath. The dilator was exchanged over the guide wire for the PICC, whi ch was then further advanced under fluoroscopy. The sheath and guide wire were removed. The PICC wa s flushed again and secured in place at the arm. The patient tolerated the procedure well. There wa s no complication. IMPRESSION: Successful placement of PICC (peripherally inserted central catheter) steffi [] POS: [facility]
[2018-05-24] MEDS: Enoxaparin Sodium 40 MG/0.4 ML SYRINGE SC SCH (20:21)
[2018-05-25] MEDS: MEROPENEM 1 GM/50 ML 1 GM in Premix Bag 1 BAG IVPB SCH ×3 (05:05→22:09)
[2018-05-25 05:57] LABS: Band 2 % (5-11); Eosinophils 4 % (0-10); Hemoglobin 8.6 g/dL (14.0-18.0); Hypochromia SLIGHT = 6-15 cells (100X) (0-5/hpf); Lymphocytes 5 % (21-51); MDiff Complete? YES; Mean Corpuscular Hemoglobin 30.7 pg (27.0-31.0); Mean Corpuscular Volume 93.1 fL (78.0-98.0); Mean Platelet Volume 6.5 fL (7.4-10.4); Monocytes 2 % (0-10); Neutrophil 87 % (42-75); Nucleated RBC 1 % (0); PLT Morphology Comment Appears Increased; Platelet Count 687 thou/uL (130-400); Polychromasia SLIGHT = 2-3 cells (100X) (0-2/hpf); RBC Distribution Width 16.1 % (11.5-14.5); Red Blood Cell (RBC) Count 2.78 mill/uL (4.70-6.10); White Blood Cell (WBC) Count 16.6 thou/uL (4.8-10.8)
[2018-05-25] MEDS: Amiodarone 200 MG TAB PO SCH ×2 (08:03→21:55)
[2018-05-25] MEDS: traMADol HCl 50 MG TAB PO PRN (08:03)
[2018-05-25] MEDS ORDERED: diphenhydrAMINE 25 MG CAP PO PRN (10:01)
--- NOTE | 2018-05-25 15:37 | PRG ---
DATE OF SERVICE: 05/25/2018 SUBJECTIVE: Mr. Melgar continues in the hospital. I had felt that he was potentially ready for tra nsfer to a [facility] facility today to continue his IV antibiotics. A PICC line was placed for this purpose yesterday. Unfortunately, the accepting physician will not take him on Monday at all _ ____. OBJECTIVE: GENERAL: He is resting comfortably in bed and is apparently feeling well. He is tolerating his diet , although not eating all of his food. VITAL SIGNS: He is afebrile, pulse is between 72 and 90, blood pressure is 109/68. LUNGS: Clear to auscultation. ABDOMEN: Soft and nontender with normoactive bowel sounds. He still has a wound VAC in place. He h as a right-sided ostomy. He has got a dressing over his midline wound with simply still had lary within it. LABORATORY STUDIES: White blood cell count is still elevated at 16.6, hemoglobin is 8.6. He has 87% neutrophils. PLAN: In summary, he continues to be stable, but has elevated white blood cell count. We know that he has got some fluid collections within his abdomen but these do not appear to be significant absces ses. I am hopeful that these will resolve with IV antibiotics in order to avoid further surgery on h im. I will request nursing to remove his lary from his abdominal wound and plan to see his wounds with wound care team at next VAC change. If all remains stable, he remains afebrile and is tolerati ng his diet. He should be ready for discharge to [facility] facility to begin this next week.
[2018-05-25] MEDS: Enoxaparin Sodium 40 MG/0.4 ML SYRINGE SC SCH (21:55)
[2018-05-26] MEDS: MEROPENEM 1 GM/50 ML 1 GM in Premix Bag 1 BAG IVPB SCH ×3 (06:51→21:43)
[2018-05-26] MEDS: Amiodarone 200 MG TAB PO SCH ×5 (08:10→21:44)
--- NOTE | 2018-05-26 16:41 | PRG ---
DATE OF SERVICE: 05/26/2018 Per the nurse and attendant, no new changes with this patient. PHYSICAL EXAMINATION: VITAL SIGNS: Temperature 97.4, pulse 77, blood pressure 110/66. GENERAL: He is awake, alert, nonverbal, multiple contractures. ABDOMEN: Soft. He has a colostomy in place with solid stool within it. ASSESSMENT: Stable. PLAN: Awaiting placement.
[2018-05-26] MEDS: Enoxaparin Sodium 40 MG/0.4 ML SYRINGE SC SCH (21:43)
[2018-05-27] MEDS: MEROPENEM 1 GM/50 ML 1 GM in Premix Bag 1 BAG IVPB SCH ×3 (06:54→22:26)
[2018-05-27] MEDS: Amiodarone 200 MG TAB PO SCH ×2 (09:08→22:26)
--- NOTE | 2018-05-27 16:49 | PRG ---
DATE OF SERVICE: 05/27/2018 SUBJECTIVE: The patient is doing well. No clinical change. OBJECTIVE: VITAL SIGNS: Temperature 98.2, pulse 78, blood pressure 124/73. GENERAL: Still really nonverbal. He is awake, somewhat contracted, tolerating tube feedings. His d rain outputs 15, urine output 450. He has . His weight is stable. He is urinating in diapers well. ASSESSMENT: Stable. PLAN: Awaiting placement.
[2018-05-27] MEDS: traMADol HCl 50 MG TAB PO PRN (18:53)
[2018-05-27] MEDS: Enoxaparin Sodium 40 MG/0.4 ML SYRINGE SC SCH (22:27)
[2018-05-28] MEDS: MEROPENEM 1 GM/50 ML 1 GM in Premix Bag 1 BAG IVPB SCH (06:23)
[2018-05-28 06:26] LABS: #Basophils 0.1 thou/uL (0.0-0.2); #Eosinphils 0.5 thou/uL (0.0-0.7); #Monocytes 0.9 thou/uL (0.11-0.59); #Neutrophils 14.4 thou/uL (1.40-6.50); %Basophils 0.6 % (0.0-1.0); %Eosinophils 2.8 % (0.0-10.0); %Lymphocytes 6.2 % (21.0-51.0); %Monocytes 5.1 % (0.0-10.0); %Neutrophils 85.3 % (42.0-75.0); Mean Corpuscular HGB CONC 32.4 g/dL (32.0-36.0); Mean Corpuscular Hemoglobin 30.1 pg (27.0-31.0); Mean Corpuscular Volume 93.1 fL (78.0-98.0); Mean Platelet Volume 6.3 fL (7.4-10.4); Platelet Count 669 thou/uL (130-400); RBC Distribution Width 16.2 % (11.5-14.5); White Blood Cell (WBC) Count 16.9 thou/uL (4.8-10.8)
[2018-05-28 06:43] LABS: ALT (SGPT) 44 U/L (8-55); AST (SGOT) 53 U/L (5-34); Albumin 2.5 g/dL (3.5-5.0); Alkaline Phosphatase 144 U/L (40-150); Anion Gap 10 mmol/L (10-20); BUN (Urea Nitrogen) 14 mg/dL (8.4-25.7); Bilirubin, Total 0.3 mg/dL (0.2-1.2); Calc. Creatinine Clearance 114 mL/min (70-130); Calcium 8.7 mg/dL (7.8-10.44); Carbon Dioxide 22 mmol/L (22-29); Chloride 110 mmol/L (98-107); Estimated GFR-MDRD Greater than 90; Glucose 98 mg/dL (70-105); Protein, Total 6.5 g/dL (6.0-8.3); Sodium 138 mmol/L (136-145)
[2018-05-28] MEDS: traMADol HCl 50 MG TAB PO PRN (08:23)
[2018-05-28] MEDS: Amiodarone 200 MG TAB PO SCH (08:23)
[2018-05-28 11:15] VITALS: BP 128/78; TEMP 98
--- NOTE | 2018-05-29 01:32 | DIS ---
DATE OF ADMISSION: 04/17/2018 DATE OF DISCHARGE: 05/28/2018 ADMISSION DIAGNOSES: Chronic constipation with suspected rectal dysfunction/chronic sphincter spasm. DISCHARGE DIAGNOSIS: Chronic constipation with suspected rectal dysfunction/chronic sphincter spasm with colonic atony, peritonitis. OPERATIONS/PROCEDURES PERFORMED: 1. On 04/17/2018, I performed a laparoscopic sigmoid colectomy with end colostomy. 2. On 04/19/2018, I placed a left subclavian central line and performed a laparoscopic abdominal was hout with drain placement. 3. On 04/30/2018, Dr. Rosa performed exploratory laparotomy with extensive lysis of adhesions, a to doc colectomy, closure of prior colostomy site, resection of necrotic rectal stump, and created an en d ileostomy of the right lower abdomen. He also changed at the central line over a guide wire at concepción t time. He also had CT guided drainage of intra-abdominal abscess on 05/16/2018. HISTORY OF PRESENT ILLNESS: Patient is a profoundly retarded 62-year-old white male. He has been a long-term resident at [facility]. He was referred to myself secondary to problems with rec urrent constipation and abdominal distention causing abdominal discomfort. He appeared to have total colonic distension. Examination indicated evidence of retention of fecal material within his rectum indicating some degree of sphincter dysfunction. I felt that the easiest thing that I could do for him that would alleviate the situation would be to perform a laparoscopic sigmoid colectomy with end colostomy, thereby allowing his colon to empty without sphincter interference. HOSPITAL COURSE: The patient underwent outpatient bowel prep and was taken to the operating room on the day of his presentation. His surgery was performed uneventfully. He did have an extraordinarily distended colon. It appeared to be viable throughout. It was recognized to be tenuous and that a c ouple of tears occurred within the colon during normal laparoscopic grasper manipulation. This did n ot leak at all internally, but it was recognized that it leaked externally when the divided sigmoid c olon was pulled through the abdominal wall. There was no evidence of any other leak or problems inte rnally and the rectal stump appeared to be entirely viable. On postoperative day #3, he was returned to the operating, because of hypotension, tachycardia, labor atory abnormalities. Laparoscopic evaluation was performed and the central line was placed. There w as found to be no evidence of any perforation or feculent material. There was some cloudy material i n the left lower quadrant. This was aspirated and cultures were obtained. A drain was placed within this. There did not appear to be the reason at that time to convert him to a laparotomy visit as I felt like I was able to adequately visualize and mobilize the tissues to perform a good examination. After the operation, he went to the intensive care unit where he was monitored for a couple of days, but he weaned from the ventilator quickly. Unfortunately, after his second surgery although he init ially seemed to get better he subsequently seemed to develop an ileus. He had a very low white blood cell count when I took him for his second operation and this came back up to a normal level. His ite blood cell count had normalized. On 04/30/2018, he then developed a parastomal hernia with diste nded small bowel that protruded out through the side of the colostomy necessitating an urgent return to the operating room. Dr. Rosa performed the operation in my absence. I performed a laparotomy and at my recommendation, he proceeded with a total colectomy to remove any concerns regarding further colonic atony. He washe d out the abdomen thoroughly and again this patient was back to the intensive care unit. Again, he s eemed to make appropriate progress. Resumed his care and started his diet. He seemed to tolerate th is well and then I noted that his white blood cell count was elevating again. CT scan was obtained r evealing an intra-abdominal abscess, the left side of his abdomen. This was amenable to percutaneous drainage and this was performed by Radiology on 05/16/2018. Cultures from this did grow E. coli and Pseudomonas. He was initially maintained on Zosyn, but the Pseudomonas was Zosyn resistant and he w as eventually switched to meropenem on 05/22/2018. Subsequent to that drainage procedure, he seemed to stabilize. He has been eating well and his ostomy has been functioning well. He has been afebril e and his vital signs have been within normal limits. He has remained with a leukocytosis with a per sistent white blood cell count of about 16,000. His abdomen has been very soft without any guarding at all and he has got normal bowel sounds throughout. I obtained most recent CT scan of his abdomen on 05/22/2018 and this did reveal some areas of fluid collection within his abdomen that did not appe ar to have a thickened wall consistent with an abscess. Several of these also appeared to be potenti ally in continuity with his indwelling radiologic drain. Ever since his surgery on 04/30/2018, he has had a wound VAC on his ostomy site in the left abdomen. His drain site in the right lower quadrant has also been treated with a wound VAC. It is impressive how little progress either of these has made over the past couple of weeks while neither appears to be infected, they are granulating extraordinarily slowly. Additionally, he did develop a cardiac arr hythmia, which was treated while he was in the intensive care unit with amiodarone and he continues t o take oral amiodarone at this time to suppress further arrhythmia. He has had no further episodes o f this since the amiodarone was started. At this time, he appears to be stable. A PICC line was placed a few days ago for his intravenous iván openem. His central line was removed earlier in anticipation of his discharge. He is eating and naun erating his diet well. His ostomy is functioning well. His wounds appear to be clean, although as m entioned, making little progress. I recommend that he remain on meropenem until 06/07/2018 to achieve an appropriate course. He will n eed wound care for an ongoing period of time that I would not be surprised if it is less than a coupl e of months. He will need ostomy care as well of course. His intra-abdominal drain will need to be removed at some point. If this is still intact when he returns to see me in 10-14 days and I would p renita on removing it in my office. Until then, it should be flushed regularly.
[2020-04-17] MEDS ORDERED: Heparin 1,000 UNITS/ML VIAL ONE (09:00)
== END 2018-05-28 13:11 | disposition swing bed (61) | DRG 329 ==
LOC: SURG A 07:33 → CCU 04-19 15:52 → 2NO 04-26 22:51 → CCU 04-30 04:30 → IMCU/EMU 05-06 16:33 → SURG B 05-13 13:53
PROVIDERS: ADMIT Specialist; ATTEND Specialist
PROC: 0DTN4ZZ Resection of Sigmoid Colon, Percutaneous Endoscopic Approach (ICD-10-PCS; principal; 2018-04-18)
PROC: 0D1M4Z4 Bypass Descending Colon to Cutaneous, Percutaneous Endoscopic Approach (ICD-10-PCS; 2018-04-18)
PROC: 0W9G4ZZ Drainage of Peritoneal Cavity, Percutaneous Endoscopic Approach (ICD-10-PCS; 2018-04-19)
PROC: 3E0436Z Introduction of Nutritional Substance into Central Vein, Percutaneous Approach (ICD-10-PCS; 2018-04-19)
PROC: 02HV33Z Insertion of Infusion Device into Superior Vena Cava, Percutaneous Approach (ICD-10-PCS; 2018-04-19)
PROC: 5A1945Z Respiratory Ventilation, 24-96 Consecutive Hours (ICD-10-PCS; 2018-04-19)
PROC: 0DNB0ZZ Release Ileum, Open Approach (ICD-10-PCS; 2018-04-30)
PROC: 0WQF0ZZ Repair Abdominal Wall, Open Approach (ICD-10-PCS; 2018-04-30)
PROC: 0DBP0ZZ Excision of Rectum, Open Approach (ICD-10-PCS; 2018-04-30)
PROC: 0D1B0Z4 Bypass Ileum to Cutaneous, Open Approach (ICD-10-PCS; 2018-04-30)
PROC: 0DTE0ZZ Resection of Large Intestine, Open Approach (ICD-10-PCS; 2018-04-30)
PROC: 02PYX3Z Removal of Infusion Device from Great Vessel, External Approach (ICD-10-PCS; 2018-04-30)
PROC: 02HV33Z Insertion of Infusion Device into Superior Vena Cava, Percutaneous Approach (ICD-10-PCS; 2018-04-30)
PROC: 30233N1 Transfusion of Nonautologous Red Blood Cells into Peripheral Vein, Percutaneous Approach (ICD-10-PCS; 2018-04-30)
PROC: 0D9W3ZZ Drainage of Peritoneum, Percutaneous Approach (ICD-10-PCS; 2018-05-17)
PROC: 02HV33Z Insertion of Infusion Device into Superior Vena Cava, Percutaneous Approach (ICD-10-PCS; 2018-05-24)
DX: K59.04 Chronic idiopathic constipation (principal); A41.9 Sepsis, unspecified organism; K65.9 Peritonitis, unspecified; K65.1 Peritoneal abscess; R65.21 Severe sepsis with septic shock; J96.01 Acute respiratory failure with hypoxia; G93.49 Other encephalopathy; T81.4XXA Infection following a procedure, initial encounter; F73 Profound intellectual disabilities; K43.3 Parastomal hernia with obstruction, without gangrene; E27.40 Unspecified adrenocortical insufficiency; K56.7 Ileus, unspecified; I47.1 Supraventricular tachycardia; K94.09 Other complications of colostomy; N17.9 Acute kidney failure, unspecified; K92.2 Gastrointestinal hemorrhage, unspecified; E46 Unspecified protein-calorie malnutrition; K66.0 Peritoneal adhesions (postprocedural) (postinfection); D69.6 Thrombocytopenia, unspecified; B95.2 Enterococcus as the cause of diseases classified elsewhere; B96.5 Pseudomonas (aeruginosa) (mallei) (pseudomallei) as the cause of diseases classified elsewhere; B96.20 Unspecified Escherichia coli [E. coli] as the cause of diseases classified elsewhere; E87.6 Hypokalemia; E83.42 Hypomagnesemia; E83.39 Other disorders of phosphorus metabolism; Z66 Do not resuscitate; I48.91 Unspecified atrial fibrillation; K59.4 Anal spasm; K31.89 Other diseases of stomach and duodenum; D64.9 Anemia, unspecified; E78.00 Pure hypercholesterolemia, unspecified; M41.9 Scoliosis, unspecified; M24.50 Contracture, unspecified joint; X58.XXXS Exposure to other specified factors, sequela; Y83.3 Surgical operation with formation of external stoma as the cause of abnormal reaction of the patient, or of later complication, without mention of misadventure at the time of the procedure; Z88.2 Allergy status to sulfonamides; Z68.20 Body mass index [BMI] 20.0-20.9, adult
CPT/HCPCS: 36415; 36416; 36430; 36569; 49020; 71045; 74018; 74177; 76705; 77012; 80048; 80053; 80061; 82533; 82805; 83605; 83735; 83880; 84100; 84134; 85025; 85060; 85610; 85730; 86850; 86900; 86901; 87070; 87077; 87116; 87186; 87205; 87206; 88304; 88307; 89051; 93005; 93010; 93306; 94002; 94003; 94640; A4216; A4217; C1729; C1751; C9113; G8996-GN-CJ; G8996-GN-CK; G8996-GN-CL; G8997-GN-CJ; G8997-GN-CK; J0131; J0171; J0282; J0694; J1100; J1160; J1450; J1642; J1644; J1650; J1720; J1815; J1885; J1940; J2001; J2185; J2248; J2250; J2270; J2370; J2405; J2543; J2704; J2710; J2765; J2997; J3010; J3411; J3475; J3480; J7050; J7070; J7620; J7626; P9016; P9045; P9047; S0028

== ENCOUNTER 2022-05-03 12:01 | Day surgery (SDC) | payer MEDICARE, MEDICAID ==
[2022-05-02 10:34] VITALS: BMI 19.5
[2022-05-03] MEDS ORDERED: Rocuronium Bromide 10 MG/ML (10ML VIAL) ONE (12:50)
[2022-05-03] MEDS ORDERED: ePHEDrine 50 MG/ML VIAL ONE (12:50)
[2022-05-03] MEDS ORDERED: Neostigmine Methylsulfate 3 MG/3 ML SYRINGE ONE (12:50)
[2022-05-03] MEDS ORDERED: PROPOFOL 200 MG/20 ML VIAL ONE (12:50)
[2022-05-03] MEDS ORDERED: Lidocaine 1% PF 5 ML VIAL ONE (12:50)
[2022-05-03] MEDS ORDERED: Phenylephrine 10 MG/ML VIAL ONE (12:50)
[2022-05-03] MEDS ORDERED: Glycopyrrolate 0.2 MG/ML 5 ML SYRINGE ONE (12:50)
[2022-05-03] MEDS ORDERED: Iopamidol 45 ML ONE (13:02)
[2022-05-03] MEDS ORDERED: Piperacillin/Tazobactam 3.375 GM VIAL ONE (13:13)
[2022-05-03] MEDS ORDERED: Sodium Chloride 0.9% 100 ML ONE (13:15)
== END 2022-05-03 16:30 | disposition home or self-care (01) ==
LOC: SDC 12:01
PROVIDERS: ATTEND Urology
PROC: 0TC38ZZ Extirpation of Matter from Right Kidney Pelvis, Via Natural or Artificial Opening Endoscopic (ICD-10-PCS; principal; 2022-05-03)
PROC: 0T768DZ Dilation of Right Ureter with Intraluminal Device, Via Natural or Artificial Opening Endoscopic (ICD-10-PCS; 2022-05-03)
DX: N20.0 Calculus of kidney (principal); M81.0 Age-related osteoporosis without current pathological fracture; F79 Unspecified intellectual disabilities; H54.3 Unqualified visual loss, both eyes; G82.50 Quadriplegia, unspecified; Z79.2 Long term (current) use of antibiotics; Z79.899 Other long term (current) drug therapy; Z88.1 Allergy status to other antibiotic agents; Z88.2 Allergy status to sulfonamides
CPT/HCPCS: 74420; C2617; J2370; J2543; J2704; J3490; Q9967